=== PATIENT | male | born 1935 | race Caucasian/White ===

== ENCOUNTER → 2017-10-27 12:40 | Outpatient (CLI) | payer MEDICARE, SELFPAY ==
--- NOTE | 2017-10-27 10:00 | BLB_PTH ---
PATIENT: МАРИНА MCGOWAN LOC: [facility] U#:[id number] AGE/SX: 89/M ROOM: RE10/27/[address]: Dr. Robinson Camejo MD : 1935 BED: DIS: SPEC #: [id number] RECD: 10/27/17 12:20 STATUS: BEVERLY AUGUSTO #: [id number] PATRICK: 10/27/17 10:[address]: Robinson Camejo DEPT: SURGICAL PATHOLOGY RECD BY: Freddy Guzman ENTERED: 10/27/17 14:18 SP TYPE: TURB OTHR DR: Dr. 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 1/3 Lamina propria invasion ? not identified Lymph-vascular invasion ? not identified. Detrusor muscle invasion ? detrusor muscle is not present in the submitted specimen. JOHNSON:ileana 11/02/17 MICROSCOPIC DESCRIPTION Slides are reviewed. GROSS DESCRIPTION Received in fixative is one container labeled with the patient's name and designated bladder biopsy. The specimen consists of one irregular fragment of light thomas soft tissue that measures 0.2 x 0.1 x <0.1 cm. The specimen is totally submitted in one cassette. / AM:ileana 10/27/17 TC:0 CPT: 21855
== END ==
PROVIDERS: Family Provider Family Medicine; PCP Family Medicine; Visit Provider Urology
DX: C67.9 Malignant neoplasm of bladder, unspecified (principal)
CPT/HCPCS: 88305; 88307

== ENCOUNTER → 2017-12-08 10:44 | Outpatient (CLI) | payer MEDICARE, SELFPAY ==
--- NOTE | 2017-12-08 10:50 | CDU_ITS ---
Reason For Study: Carotid Stenosis Rt. Velocities/BP Lt. Velocities/BP Prox CCA 85/23 cm/sec. Prox CCA 100/22 cm/sec. Mid CCA 81/18 cm/sec. Mid CCA 77/23 cm/sec. Dist CCA 78/22 cm/sec. Dist CCA 46/12 cm/sec. Prox ICA 68/20 cm/sec. Prox ICA 66/24 cm/sec. Mid ICA 67/24 cm/sec. Mid ICA 70/23 cm/sec. Dist ICA 71/15 cm/sec. Dist ICA 81/28 cm/sec. Rt. ICA/CCA = 0.87. Lt. ICA/CCA = 1.05. Prox ECA 89/10 cm/sec. Prox ECA 93/10 cm/sec. Rt. Vert. 57/16 cm/sec. Lt. Vert. 43/16 cm/sec. Right Extracranial There is heterogeneous, irregular atherosclerotic plaque noted in the right common carotid artery. There is heterogeneous, smooth atherosclerotic plaque noted in the right internal carotid artery. There is heterogeneous, irregular atherosclerotic plaque noted in the right external carotid artery. Antegrade flow is noted in the right vertebral artery. Left Extracranial There is heterogeneous, smooth atherosclerotic plaque noted in the left common carotid artery. There is heterogeneous, irregular atherosclerotic plaque noted in the left internal carotid artery. There is no significant atherosclerotic plaque noted in the left external carotid artery. Antegrade flow is noted in the left vertebral artery. Procedure Carotid Duplex [id number]. Exam performed in department. Interpretation Summary Smooth plague within the proximal right internal carotid artery with <50% stenosis. Mild irregular plague within the proximal left internal carotid with <50% stenosis. Normal flow bilateral external carotids Patent and antegrade vertebrals bilaterally Ordering Physician: Tam Friedman Referring Physician: Reymundo Shay Performed By: Marquita Loya, RDCS, RVT
== END ==
PROVIDERS: Family Provider Family Medicine; PCP Family Medicine; Visit Provider Surgery
DX: I65.23 Occlusion and stenosis of bilateral carotid arteries (principal)
CPT/HCPCS: 93880

== ENCOUNTER → 2019-12-09 10:39 | Outpatient (CLI) | payer MEDICARE, SELFPAY ==
--- NOTE | 2019-12-09 10:40 | CDU_ITS ---
Reason For Study: Carotid stenosis Rt. Velocities/BP Lt. Velocities/BP Prox CCA 93/22.6 cm/sec. Prox CCA 110.1/24.3 cm/sec. Mid CCA 82.6/18.6 cm/sec. Mid CCA 86.4/20.6 cm/sec. Dist CCA 78.6/16 cm/sec. Dist CCA 70.4/15.1 cm/sec. Prox ICA 74.7/22.6 cm/sec. Prox ICA 79/23.7 cm/sec. Mid ICA 61.7/17.3 cm/sec. Mid ICA 55.6/20 cm/sec. Dist ICA 87.8/23.9 cm/sec. Dist ICA 71.6/21.2 cm/sec. Rt. ICA/CCA = 1.1. Lt. ICA/CCA = 0.9. Prox ECA 82.5/8.2 cm/sec. Prox ECA 85.1/2.8 cm/sec. Rt. Vert. 35.5/12.4 cm/sec. Lt. Vert. 47/10.2 cm/sec. Right Extracranial There is homogeneous, smooth atherosclerotic plaque noted in the right common carotid artery. There is heterogeneous, irregular atherosclerotic plaque noted in the right internal carotid artery. There is intimal thickening but no significant atherosclerotic plaque noted in the right external carotid artery. Antegrade flow is noted in the right vertebral artery. Left Extracranial There is homogeneous, smooth atherosclerotic plaque noted in the left common carotid artery. There is heterogeneous, irregular atherosclerotic plaque noted in the left internal carotid artery. There is intimal thickening but no significant atherosclerotic plaque noted in the left external carotid artery. Antegrade flow is noted in the left vertebral artery. Procedure Carotid Duplex [id number]. Exam performed in department. Interpretation Summary Irregular heterogenous plaque at the proximal right internal carotid artery with less than 50% stenosis. <50% stenosis right external carotid Postoperative changes left carotid bulb and proximal internal carotid artery with very minimal plaque and less than 50% stenosis <50% stenosis left external carotid Patent and antegrade vertebral arteries bilaterally No change from December 08, 2017 Ordering Physician: Tam Friedman Referring Physician: Reymundo Shay Performed By: Gema Xiao RVT
== END ==
PROVIDERS: PCP Family Medicine; Referring Provider Surgery; Visit Provider Surgery
DX: I65.23 Occlusion and stenosis of bilateral carotid arteries (principal)
CPT/HCPCS: 93880

== ENCOUNTER → 2021-03-04 11:30 | Outpatient (CLI) | payer MEDICARE, SELFPAY ==
[2021-03-04 11:57] LABS: Absolute Lymphocyte Count 0.76 X10^3/uL (0.83-4.51); Absolute Neutrophil Count 5.2 X10^3/uL (2.0-7.7); Basophil# 0.02 X10^3/uL; Basophil% 0.3 % (0-1); Eosinophil# 0.07 X10^3/uL; Eosinophils% 1.1 % (0-5); Hematocrit 47.9 % (40-54); Hemoglobin 14.7 g/dL (13.0-16.5); Lymphocyte # 0.76 X10^3/ul (0.83-4.51); Lymphocyte % 11.6 % (19-41); Mean Corp Hgb Conc 30.7 g/dL (32-36); Mean Corpuscular Hgb 30.6 pg (27.0-32.0); Mean Corpuscular Volume 99.8 fL (80-94); Monocyte% 7.6 % (0-10); NRBC Flagged by Analyzer 0 % (0-5); Neutrophil % 79.1 % (47-70); Platelet Count 202 K/mm3 (150-450); RBC Distribution Width SD 47.8 fl (35.1-43.9); White Blood Count 6.6 K/mm3 (4.4-11.0)
[2021-03-04 12:36] LABS: Anion Gap 4 (5-15); BUN 18 mg/dL (7-18); BUN/Creat Ratio 17.3 RATIO (10-20); Calcium,Total 9.1 mg/dL (8.5-10.1); Chloride 106 mmol/L (98-107); Creatinine, Serum 1.04 mg/dL (0.70-1.30); EST Glomerular Filtration Rate 72 mL/min (>60); Est Glom Filt Rate - Afr Amer 87 mL/min (>60); Glucose 138 mg/dL (74-106); Potassium 4.1 mmol/L (3.5-5.1); Sodium Level 140 mmol/L (136-145)
[2021-03-09 11:46] LABS: Hemoglobin A1c 5.8 % (3.8-5.6)
== END ==
PROVIDERS: PCP Family Medicine; Visit Provider Physician Assistant
DX: Z01.818 Encounter for other preprocedural examination (principal)
CPT/HCPCS: 36415; 80048; 83036; 85025

== ENCOUNTER → 2021-11-26 | Outpatient (CLI) | payer MEDICARE, SELFPAY ==
--- NOTE | 2021-11-26 09:40 | CDU_ITS ---
Reason For Study: Carotid stenosis Rt. Velocities/BP Lt. Velocities/BP Prox CCA 95.6/20 cm/sec. Prox CCA 124.7/22.5 cm/sec. Mid CCA 100.8/20 cm/sec. Mid CCA 99.2/20.6 cm/sec. Dist CCA 89.1/21.3 cm/sec. Dist CCA 69.1/15.1 cm/sec. Prox ICA 79.9/21.3 cm/sec. Prox ICA 59.3/17.6 cm/sec. Mid ICA 85.2/23.9 cm/sec. Mid ICA 66.7/16.3 cm/sec. Dist ICA 85.2/27.8 cm/sec. Dist ICA 82.7/22.5 cm/sec. Rt. ICA/CCA = 0.9. Lt. ICA/CCA = 0.8. Prox ECA 121.7/10.8 cm/sec. Prox ECA 126.6/11.5 cm/sec. Rt. Vert. 57.8/13.4 cm/sec. Lt. Vert. 61.8/11.4 cm/sec. Right Extracranial There is homogeneous, smooth atherosclerotic plaque noted in the right common carotid artery. There is heterogeneous, irregular atherosclerotic plaque noted in the right internal carotid artery. There is intimal thickening but no significant atherosclerotic plaque noted in the right external carotid artery. Antegrade flow is noted in the right vertebral artery. Left Extracranial There is homogeneous, smooth atherosclerotic plaque noted in the left common carotid artery. There is heterogeneous, irregular atherosclerotic plaque noted in the left internal carotid artery. There is heterogeneous, irregular atherosclerotic plaque noted in the left external carotid artery. Antegrade flow is noted in the left vertebral artery. Procedure Carotid Duplex [id number]. This is a Carotid Duplex examination using B-mode, color flow and specral Doppler. Exam performed in department. VL/Carotid Duplex Ultrasound Interpretation Summary Heterogenous plaque at the proximal right internal carotid artery with less kevin n 50% stenosis Less than 50% stenosis right external carotid artery Postoperative changes of the left carotid bulb and proximal internal carotid ar leonardo with minimal plaque and less than 50% stenosis. Less than 50% stenosis left external carotid artery Patent and antegrade vertebral arteries bilaterally Ordering Physician: Tam Friedman Referring Physician: Reymundo Shay Performed By: Gema Xiao RVT
== END | disposition home or self-care (01) ==
LOC: CVS 09:38
PROVIDERS: PCP Family Medicine; Referring Provider Surgery; Visit Provider Surgery
DX: I65.23 Occlusion and stenosis of bilateral carotid arteries (principal)
CPT/HCPCS: 93880

== ENCOUNTER → 2023-02-24 | Outpatient (CLI) | payer MEDICARE, SELFPAY ==
--- NOTE | 2023-02-24 12:40 | BI_ITS ---
MAMMOGRAPHY - BILATERAL DIAGNOSTIC REASON FOR EXAM: Male, 87 years old. Gynecomastia. PERTINENT HISTORY: Sister with breast cancer. Mother with breast cancer. Aunt with breast cancer. Past history of bladder carcinoma. TECHNIQUE: Digital bilateral breast linda (3D mammographic acquisition) in the CC and MLO projections. 2-D mediolateral oblique (MLO) and craniocaudad (CC) views of both breasts were obtained. CAD: Full Field Digital Mammography with Computer Added Detection was performed. COMPARISON: None. Baseline examination. FINDINGS: Breast Composition: Retroglandular tissue suggestive of gynecomastia. No focal mass lesion is seen. Correlation with ultrasound is recommended. There are no dominant masses or suspicious calcifications. No other significant abnormalities are identified. BI/DIAG MAMM W/CAD, BILAT IMPRESSION: Findings suggestive of bilateral gynecomastia. Correlation with ultrasound is recommended. ASSESSMENT CATEGORY: BIRADS Category 0: Incomplete. Need additional imaging evaluation. A letter regarding these results will be sent to the patient by the facility within 30 days. Approximately 10% of breast cancers are not detected by mammography. A normal mammogram should not delay biopsy of a clinically suspicious abnormality. Electronically Signed: Ariel Bains MD at 13:37 EDT ,
--- NOTE | 2023-02-24 12:41 | US_ITS ---
STUDY: ULTRASOUND BREAST - LEFT REASON FOR EXAM: Male, 87 years old. Pain in the left breast. TECHNIQUE: Axial and longitudinal images of the LEFT breast were performed with a high resolution ultrasound transducer. # OF IMAGES: 22 COMPARISON: Comparison is made with prior mammogram done earlier today. FINDINGS: LEFT Breast: Retroareolar glandular tissue. Findings suggest gynecomastia. US/Breast Limited Unilateral IMPRESSION: Findings suggestive of gynecomastia. ASSESSMENT CATEGORY: BIRADS Category 2: Benign. A letter regarding these results will be sent to the patient by the facility within 30 days. Electronically Signed: Ariel Bains MD at 14:55 EDT ,
== END | disposition home or self-care (01) ==
PROVIDERS: PCP Family Medicine; Referring Provider Family Medicine; Visit Provider Family Medicine
DX: N62 Hypertrophy of breast (principal)
CPT/HCPCS: 76642; 77062; 77066; G0279

== ENCOUNTER → 2023-10-30 | Outpatient (CLI) | payer MEDICARE, SELFPAY ==
--- NOTE | 2023-10-30 10:33 | CDU_ITS ---
Reason For Study: Carotid stenosis Rt. Velocities/BP Lt. Velocities/BP Prox CCA 92.9/14.5 cm/sec. Prox CCA 107.2/20 cm/sec. Mid CCA 91.9/16.3 cm/sec. Mid CCA 96.1/12.6 cm/sec. Dist CCA 91.9/19.2 cm/sec. Dist CCA 88.8/15.1 cm/sec. Prox ICA 102.3/23.7 cm/sec. Prox ICA 57/14.2 cm/sec. Mid ICA 77.7/22.5 cm/sec. Mid ICA 69.2/16 cm/sec. Dist ICA 64.2/16.3 cm/sec. Dist ICA 65.7/22.9 cm/sec. Rt. ICA/CCA = 1.11. Lt. ICA/CCA = 0.72. Prox ECA 121.1/7.9 cm/sec. Prox ECA 136.8/9.4 cm/sec. Rt. Vert. 39.7/12.6 cm/sec. Lt. Vert. 58.7/13.3 cm/sec. Right Extracranial There is homogeneous, smooth atherosclerotic plaque noted in the right common carotid artery. There is heterogeneous, irregular atherosclerotic plaque noted in the right internal carotid artery. There is intimal thickening but no significant atherosclerotic plaque noted in the right external carotid artery. Antegrade flow is noted in the right vertebral artery. Left Extracranial There is homogeneous, smooth atherosclerotic plaque noted in the left common carotid artery. There is heterogeneous, irregular atherosclerotic plaque noted in the left internal carotid artery. There is heterogeneous, irregular atherosclerotic plaque noted in the left external carotid artery. Antegrade flow is noted in the left vertebral artery. Procedure This is a Carotid Duplex examination using B-mode, color flow and specral Doppler. Carotid Duplex [id number]. Exam performed in department. VL/Carotid Duplex Ultrasound Interpretation Summary Heterogenous plaque at the proximal right internal carotid artery with less kevin n 50% stenosis Less than 50% stenosis right external carotid artery Postoperative changes of the left carotid bulb and proximal internal carotid ar leonardo with minimal plaque and less than 50% stenosis. Less than 50% stenosis left external carotid artery Patent and antegrade vertebral arteries bilaterally No change from the previous examination of the November 26, 2021 Ordering Physician: Tam Friedman Referring Physician: Marcio Alford Performed By: Gema Xiao RVT
== END | disposition home or self-care (01) ==
PROVIDERS: PCP Hospitalist; Referring Provider Surgery; Visit Provider Surgery
DX: I65.22 Occlusion and stenosis of left carotid artery (principal)
CPT/HCPCS: 93880

== ENCOUNTER → 2024-03-11 | Outpatient (CLI) | payer MEDICARE, SELFPAY ==
[2024-03-11 12:49] LABS: Hematocrit 44.1 % (40-54); Mean Corp Hgb Conc 31.7 g/dL (32-36); Mean Corpuscular Hgb 30.9 pg (27.0-32.0); Mean Corpuscular Volume 97.4 fL (80-94); Platelet Count 213 K/mm3 (150-450); RBC Distribution Width CV 12.8 % (11.6-14.6); RBC Distribution Width SD 45.9 fl (35.1-43.9); Red Blood Count 4.53 M/mm3 (4.6-6.2); White Blood Count 6.6 K/mm3 (4.4-11.0)
[2024-03-11 13:15] LABS: Anion Gap 7 (5-15); BUN 18 mg/dL (7-18); BUN/Creat Ratio 18.2 RATIO (10-20); Calcium,Total 9.6 mg/dL (8.5-10.1); Chloride 105 mmol/L (98-107); Creatinine, Serum 0.99 mg/dL (0.70-1.30); EST Glomerular Filtration Rate 76 mL/min (>60); Est Glom Filt Rate - Afr Amer 92 mL/min (>60); Glucose 90 mg/dL (74-106); Potassium 4.2 mmol/L (3.5-5.1); Sodium Level 139 mmol/L (136-145)
== END | disposition home or self-care (01) ==
PROVIDERS: PCP Hospitalist; Referring Provider Urology; Visit Provider Urology
DX: Z01.812 Encounter for preprocedural laboratory examination (principal)
CPT/HCPCS: 36415; 80048; 85027

== ENCOUNTER → 2024-03-12 | Outpatient (CLI) | payer MEDICARE, SELFPAY | END | disposition home or self-care (01) | LOC: PSN 12:22 | PROVIDERS: PCP Nurse Practitioner Family; Referring Provider Urology; Visit Provider Urology | DX: Z01.810 Encounter for preprocedural cardiovascular examination (principal) | CPT/HCPCS: 93005 ==

== ENCOUNTER → 2024-03-22 | Outpatient (CLI) | payer MEDICARE, SELFPAY ==
--- NOTE | 2024-03-22 | BLB_PTH ---
PATHOLOGY RESULTS PATIENT: МАРИНА MCGOWAN [facility] U#:[id number] AGE/SX: 88/M ROOM: RE03/22/[address]: Dr. Robinson Camejo MD : 1935 BED: DIS: 03/22/2024 SPEC #: [id number] RECD: 03/22/24 14:48 STATUS: BEVERLY CASAS #: [id number] PATRICK: 03/22/24 00:[address]: Robinson Camejo DEPT: SURGICAL PATHOLOGY RECD BY: Kiley Joe ENTERED: 03/25/24 09:11 SP TYPE: TURB OTHR DR: Gema Chu, VIOLIN MAKER HAND-C Tissues: Urinary bladder, NOS Procedures: Surgery Specimen Level V HEADER OPERATION: Transurethral resection, bladder tumor PRE-OP DIAGNOSIS: Malignant neoplasm of posterior wall of bladder TISSUE SUBMITTED: Bladder tumor MICROSCOPIC DIAGNOSIS Bladder tumor, transurethral resection: Atypical papillary urothelial proliferation. Negative for malignancy. See comment. JOHNSONNadine 03/26/2024 COMMENT Detrusor muscle is also present in the specimen. Clinical correlation and appropriate follow up are necessary. MICROSCOPIC DESCRIPTION Slides are reviewed. GROSS DESCRIPTION Received in fixative is one container labeled with the patient's name and designated Bladder tumor. The specimen consists of one irregular fragment of light thomas soft tissue that measures 0.4 x 0.2 x 0.1 cm. The specimen is totally submitted in one cassette. 03/25/2024 TC:5 CPT:[id number]
--- OUTSIDE RECORDS SUMMARY | 2024-03-22 16:27 | XMS RPT_ITS | CCD ---
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 aches, malaise, and headache have been present for 5 days and refractory to OTC meds. No fever, chills, loss of taste/smell, nausea, vomiting, abdominal pain, CP, or SOB. No exacerbating factors. ill with same symptoms. HISTORY OF PRESENTING ILLNESS JAIME is a 87 year old Male and was seen by me at 16-Nov-2022 10:59. Triage Information: Most recent Vital Sign Value Date PAST MEDICAL HISTORY ALLERGIES/INTOLERANCES : No Known Allergies HEALTH HISTORY: No documented data. OUTPATIENT MEDICATIONS: Home Medications Review Status for Reconciliation: Complete Med Status: Patient Currently Takes Medications Drug Name: omeprazole Instructions: null Drug Name: simvastatin Instructions: null Drug Name: Valtrex Instructions: null Drug Name: finasteride Instructions: null Drug Name: Xarelto Instructions: null Drug Name: doxycycline hyclate 100 mg oral tablet Instructions: 1 tab(s) orally 2 times a day Drug Name: predniSONE 20 mg oral tablet Instructions: 1 tab(s) orally once a day SIGNIFICANT EVENTS: Past Medical History Description:a fib REVIEW OF SYSTEMS All other systems reviewed and are negative REVIEW OF SYSTEMS: Comments See HPI PHYSICAL EXAM CONSTITUTIONAL: Dull nasally voice but appears well nourished, awake, alert, oriented to person, place, time/situation and in no apparent distress. HENMT: Airway patent, ears with clear tympanic membranes bilaterally. Nasal mucosa clear. Mouth with normal mucosa. Throat has no vesicles, no oropharyngeal exudates and uvula is midline. Face with no lymph node enlargement. EYES: Clear bilaterally, pupils equal, round and reactive to light. CARDIOVASCULAR: Normal rate, regular rhythm. Heart sounds S1, S2. No murmurs, rubs or gallops. PMI non-displaced. RESPIRATORY: Rhonchi to bilateral lower lobes. No rales or wheezing. NEUROLOGICAL: Alert and oriented, no focal deficits, no motor or sensory deficits. SKIN: Skin normal color for race, warm, dry and intact. No evidence of trauma. PSYCHIATRIC: Alert and oriented to person, place, time/situation. normal mood and affect. No apparent risk to self or others. CRITICAL CARE VITAL SIGNS: T PRBP SpO2O2(LPM) %FiO2 Method 16-Nov-2022 10:51:[id number] MDM MDM/ED COURSE: Discussed Findings with: patient Data Reviewed: vital signs Treatment Plan: Rx doxycycline and low dose prednisone. Discussed use of prednisone with afib and symptoms to monitor. Encouraged patient to push p.o. fluids and rest. Patient's clinical presentation is otherwise unremarkable at this time. Patient is discharged with instructions to follow-up with primary care or seek emergency medical attention for worsening symptoms or any new concerns. DISPOSITION Diagnosis/Annotation: ED Dx Name:Acute bronchitis Code:J20.9 Disposition: discharged Type: home CONSULT CRITICAL CARE TIME Is this a critically ill patient: no Electronic Signatures: Cyrus Vega (MANAGER SOCIAL WORK-MANAGER ART) (Signed 16-Nov-2022 12:00) Authored: ED Notes, HPI, PMH, ROS, PE, Results/Vital Signs, MDM/ED Course, Clinical Impression, Attestation, Chart Review, Scores Last Updated: 16-Nov-2022 12:00 by Cyrus Vega (MANAGER SOCIAL WORK-MANAGER ART) [facility] PT Progress Noteon 2 PT Progress Note Therapy Diagnosis Assessed Impaired transfers (781.99) (Z74.09) 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 Pt will demo and report compliance with HEP in order to augment POC goals and progression toward independence with symptom management for better outcomes once D/C from POC. , goal met Strength: Pt will demo improved MMT by >/= 1 point on 0-5 point scale in BLE's for improved strength and stability, and improved ease with transfers, lifting/carrying, and proper mechanics with ADL?s AND IADL?s. , by week 4, goal met KRISTIN, Pt will report subjective improvement with score on KRISTIN improved by >/= 5 points for return to PLOF, improved QOL, and improved ease with ADL?s AND IADL?s. , by week 4, goal met Planned interventions include: aquatic therapy, cryotherapy, dry needling, education/instruction, electrical stimulation, gait training, home program, hot pack, kinesiotaping, manual therapy, neuromuscular re-education, self care/home management, therapeutic activities, therapeutic exercises, ultrasound and IASTM/CUPPING. Frequency and duration: No further visits planned., for 15 visits. Potential to achieve rehab goals is good Pt being placed on hold for 30 days at this time and is going to attempt independence with HEP. If pt does not elect to resume PT within 30 days, this will serve as his D/C. Refer back in future if necessary. Monitor home program. Patient instructed to call if problems. Assessment Pt reassessed this date by supervising PT with improvements noted in Lumbar AROM as well as MMT in BLE s compared to eval.. Pt deferred doing ther-ex this date and requested to defer any manual therapy this date as well so pt only kept for 30 minutes for re-assessment and to discuss/review HEP. Pt reported good understanding of all edu and updates to HEP made this date and is appropriate to attempt independence with HEP and symptom management at this time with blue band given for progression of ther-ex at home. Patient was able to complete today's treatment with ease. Adult Risk Screening There are no spiritual/cultural practices/values/needs that are important to know Initial Fall Risk Screening: JAIME has not fallen in the last 6 months. JAIME has a fear of falling. He needs assistance with . Does not need assistance walking in his home. He does not need assistance in an unfamiliar setting. The patient is not using an assistive device. Fall Risk Screening: Patient is identified as a fall risk. Care Plan: Moderate Risk: Low risk interventions plus: do not leave patient on exam table unattended, supervised activity, educate patient/family on falls prevention, review safety initiatives with patient/family, family at bedside as allowed, yellow falls risk band, focus rounding attention, locate patient in area of high visibility, wheelchair, bed, or personal alarm, bedside commode, elevated toilet seat and pharmacy consult for medication concerns. Please identify location of pain: L thigh. Pain Quality: aching and tightness. The pain makes it hard for the patient to do these things: walking, house work, relationships with family or friends and self-care (bathing, dressing, eating). Domestic Violence Screen: Does not feel threatened or abused physically, emotionally or sexually. Do you feel UNSAFE? The patient feels safe in the home. Depression/Suicide Screening: During the past 2 weeks, the patient has not felt down, depressed or hopeless. During the past 2 weeks, the patient has not felt little interest or pleasure in doing things. Insurance Insurance reviewed Visit number: 19 Approved number of visits: 15 Authorization date range: 03/22/22 Authorization not required after evaluation POC: 19 [facility] Supervising PT: Yeni Lebron PT, DPT, Cert DN PT Dx: M54.50; R26.9; Z74.09; M48.062 Onset Date: 2021 Subjective Patient reports:. Pt notes he will still get some pain into his Left thigh but that has been better than it was now that he is cutting his walks back to about 3xweek instead of 6 times. Pt notes he will be having carpal tunnel surgery on 04/28/2022. Patient identified by name and date of . Home program performing as directed: Yes. Precautions: Fall Risk: moderate Lumbar Laminectomy in August 2021. Objective Ortho Lumbar AROM: Flex: 60%-->75% Ext: 10% -->15% R Rotation: 50%--75% L Rotation: 50% -->75% R Sidebend: 75% ->80% L Sidebend: 75% -->80% MMT: (RLE/LLE) Hip Flex: 4/4-->4+/4-->4+/4+ Hip Ext: N/T Hip ABD: 4-/4 --> 4/4 SEATED--5/5 Hip ER: 4+/4+ -->5/5 Hip IR: 4+/4+ -->5/5 Knee Flex: 4+/4+-->5/5 Knee Ext: 4+/4+-->5/5 Ankle DF: 3+/4-->4-/4->4-/4 Flexibility: HS: RLE: -40 from 0 in -->-30 FROM 0 IN LLE: -30 from 0 in -->-28 FROM 0 IN 9 (more content not included)... Normal [facility] Therapy Re-eval Noteon 04-04 Therapy Re-eval Note Therapy Diagnosis Assessed 1. 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 Chronic bilateral low back pain (724.2,338.29) (M54.50,G89.29) 4. Gait difficulty (781.2) (R26.9) Plan Goals: Goals set and discussed today. Pt will demo and report compliance with HEP in order to augment POC goals and progression toward independence with symptom management for better outcomes once D/C from POC. , goal met Strength: Pt will demo improved MMT by >/= 1 point on 0-5 point scale in BLE's for improved strength and stability, and improved ease with transfers, lifting/carrying, and proper mechanics with ADL?s AND IADL?s. , by week 4, goal met KRISTIN, Pt will report subjective improvement with score on KRISTIN improved by >/= 5 points for return to PLOF, improved QOL, and improved ease with ADL?s AND IADL?s. , by week 4, goal met Planned interventions include: aquatic therapy, cryotherapy, dry needling, education/instruction, electrical stimulation, gait training, home program, hot pack, kinesiotaping, manual therapy, neuromuscular re-education, self care/home management, therapeutic activities, therapeutic exercises, ultrasound and IASTM/CUPPING. Frequency and duration: No further visits planned., for 15 visits. Potential to achieve rehab goals is good Pt being placed on hold for 30 days at this time and is going to attempt independence with HEP. If pt does not elect to resume PT within 30 days, this will serve as his D/C. Refer back in future if necessary. Monitor home program. Patient instructed to call if problems. Assessment Pt reassessed this date by supervising PT with improvements noted in Lumbar AROM as well as MMT in BLE s compared to eval.. Pt deferred doing ther-ex this date and requested to defer any manual therapy this date as well so pt only kept for 30 minutes for re-assessment and to discuss/review HEP. Pt reported good understanding of all edu and updates to HEP made this date and is appropriate to attempt independence with HEP and symptom management at this time with blue band given for progression of ther-ex at home. Patient was able to complete today's treatment with ease. Adult Risk Screening There are no spiritual/cultural practices/values/needs that are important to know Initial Fall Risk Screening: JAIME has not fallen in the last 6 months. JAIME has a fear of falling. He needs assistance with . Does not need assistance walking in his home. He does not need assistance in an unfamiliar setting. The patient is not using an assistive device. Fall Risk Screening: Patient is identified as a fall risk. Care Plan: Moderate Risk: Low risk interventions plus: do not leave patient on exam table unattended, supervised activity, educate patient/family on falls prevention, review safety initiatives with patient/family, family at bedside as allowed, yellow falls risk band, focus rounding attention, locate patient in area of high visibility, wheelchair, bed, or personal alarm, bedside commode, elevated toilet seat and pharmacy consult for medication concerns. Please identify location of pain: L thigh. Pain Quality: aching and tightness. The pain makes it hard for the patient to do these things: walking, house work, relationships with family or friends and self-care (bathing, dressing, eating). Domestic Violence Screen: Does not feel threatened or abused physically, emotionally or sexually. Do you feel UNSAFE? The patient feels safe in the home. Depression/Suicide Screening: During the past 2 weeks, the patient has not felt down, depressed or hopeless. During the past 2 weeks, the patient has not felt little interest or pleasure in doing things. Insurance Insurance reviewed Visit number: 19 Approved number of visits: 15 Authorization date range: 03/22/22 Authorization not required after evaluation POC: 19 [facility] Supervising PT: Yeni Lebron PT, DPT, Cert DN PT Dx: M54.50; R26.9; Z74.09; M48.062 Onset Date: 2021 Subjective Patient reports:. Pt notes he will still get some pain into his Left thigh but that has been better than it was now that he is cutting his walks back to about 3xweek instead of 6 times. Pt notes he will be having carpal tunnel surgery on 04/28/2022. Patient identified by name and date of . Home program performing as directed: Yes. Precautions: Fall Risk: moderate Lumbar Laminectomy in August 2021. Objective Ortho Lumbar AROM: Flex: 60%-->75% Ext: 10% -->15% R Rotation: 50%--75% L Rotation: 50% -->75% R Sidebend: 75% ->80% L Sidebend: 75% -->80% MMT: (RLE/LLE) Hip Flex: 4/4-->4+/4-->4+/4+ Hip Ext: N/T Hip ABD: 4-/4 --> 4/4 SEATED--5/5 Hip ER: 4+/4+ -->5/5 Hip IR: 4+/4+ -->5/5 Knee Flex: 4+/4+-->5/5 Knee Ext: 4+/4+-->5/5 Ankle DF: 3+/4-->4-/4->4-/4 Flexibility: HS: RLE: -40 from 0 in 90/90-->-30 FROM 0 IN 90/90 LLE: -30 from 0 in 90/90-->-28 (more content not included)... [facility] Progress Noteon 2 PT Progress Note Therapy Diagnosis Assessed Chronic bilateral low back pain (724.2,338.29) (M54.50,G89.29) Plan Goals: Goals set and discussed today. Pt will demo and report compliance with HEP in order to augment POC goals and progression toward independence with symptom management for better outcomes once D/C from POC. , goal met Strength: Pt will demo improved MMT by >/= 1 point on 0-5 point scale in BLE's for improved strength and stability, and improved ease with transfers, lifting/carrying, and proper mechanics with ADL?s AND IADL?s. , by week 4, goal partially met KRISTIN, Pt will report subjective improvement with score on KRISTIN improved by >/= 5 points for return to PLOF, improved QOL, and improved ease with ADL?s AND IADL?s. , by week 4, goal partially met Planned interventions include: aquatic therapy, cryotherapy, dry needling, education/instruction, electrical stimulation, gait training, home program, hot pack, kinesiotaping, manual therapy, neuromuscular re-education, self care/home management, therapeutic activities, therapeutic exercises, ultrasound and IASTM/CUPPING. Frequency and duration: 1 time(s) a week, for 15 visits . decreased to 1 x week after this week to wean to HEP and preserve visits. Potential to achieve rehab goals is good Progress DLS for continued improved functional mobility and core strength. Progress with POC, as tolerated. Assessment Improved overall balance this date during standing PRE's and ambulation. Needed only 1 seated rest break this date as compared to several last visit. Improved core control with resisted trunk PRE's. Adult Risk Screening There are no spiritual/cultural practices/values/needs that are important to know Initial Fall Risk Screening: JAIME has not fallen in the last 6 months. JAIME has a fear of falling. He needs assistance with . Does not need assistance walking in his home. He does not need assistance in an unfamiliar setting. The patient is not using an assistive device. Fall Risk Screening: Patient is identified as a fall risk. Care Plan: Moderate Risk: Low risk interventions plus: do not leave patient on exam table unattended, supervised activity, educate patient/family on falls prevention, review safety initiatives with patient/family, family at bedside as allowed, yellow falls risk band, focus rounding attention, locate patient in area of high visibility, wheelchair, bed, or personal alarm, bedside commode, elevated toilet seat and pharmacy consult for medication concerns. Please identify location of pain: L thigh. Pain Quality: aching and tightness. The pain makes it hard for the patient to do these things: walking, house work, relationships with family or friends and self-care (bathing, dressing, eating). Domestic Violence Screen: Does not feel threatened or abused physically, emotionally or sexually. Do you feel UNSAFE? The patient feels safe in the home. Depression/Suicide Screening: During the past 2 weeks, the patient has not felt down, depressed or hopeless. During the past 2 weeks, the patient has not felt little interest or pleasure in doing things. Insurance Insurance reviewed Visit number: 19 Approved number of visits: 15 Authorization date range: 03/22/22 Authorization not required after evaluation POC: 04/12 [facility] Supervising PT: Yeni Lebron PT, DPT, Trae DN PT Dx: M54.50; R26.9; Z74.09; M48.062 Onset Date: 2021 Subjective Patient reports:. Patient reports that he is feeling good today overall. States that he walked today without too much trouble. Patient identified by name and date of . Home program performing as directed: Yes. Precautions: Fall Risk: moderate Lumbar Laminectomy in August 2021. Treatment Time in clinic started at 9:14 Time in clinic ended at 10:00 Total time in clinic is 46 minutes. Total timed code time is 45 minutes. Therapeutic exercise (28707): timed minutes 25, units 2 . Nustep 5' Seated SLR 2 x 10 B (dynadisc) (X) Recumbent bike 5' (X) slant board 1' x 2 Standing hip ABD + TrA 2 x 10 airex Standing hip Ext + TrA 2 x 10 airex Standing hip flexion + TrA 2 x 10 airex Standing marches 2 x 10 airex Standing mini squats 2 x 10 airex Standing heel raises 2 x 10 airex Step ups 6 2 x 10 B fwd/laterally Hip Hikes 2 x 10 Paloff press 2x10 ea direction pink tube Resisted Rows 2 x 10 Cowan tube Resisted extension 2 x 10 Cowan tube D/C to HEP: Seated toe raises 2 x 10 Seated march with green band 2 x 10 Seated hip ADD w/playball 2 x 10 Seated glute squeezes 2 x 10 5 hold Seated TrA 5 x 10 (with exercises) SKTC 2 x 10 LTR 2 x 10 Bridge x 10. Manual Therapy (88213):. STW to L lumbar paraspinals and Glute and QL 5' (X). Neuromuscular Re-education (27978): timed minutes 20, units 1 . 4 square ambulation 2 x 5 Side stepping at railing 2 x 10 Ball toss at the trampoling 2# 2 x 1? Tandem gait x 2 laps Hurdles x 4 laps reciprocal B (more content not included)... Normal [facility] PT Progress Noteon 2 PT Progress Note Therapy Diagnosis Assessed Chronic bilateral low back pain (724.2,338.29) (M54.50,G89.29) Plan Goals: Goals set and discussed today. Pt will demo and report compliance with HEP in order to augment POC goals and progression toward independence with symptom management for better outcomes once D/C from POC. , goal met Strength: Pt will demo improved MMT by >/= 1 point on 0-5 point scale in BLE's for improved strength and stability, and improved ease with transfers, lifting/carrying, and proper mechanics with ADL?s AND IADL?s. , by week 4, goal partially met KRISTIN, Pt will report subjective improvement with score on KRISTIN improved by >/= 5 points for return to PLOF, improved QOL, and improved ease with ADL?s AND IADL?s. , by week 4, goal partially met Planned interventions include: aquatic therapy, cryotherapy, dry needling, education/instruction, electrical stimulation, gait training, home program, hot pack, kinesiotaping, manual therapy, neuromuscular re-education, self care/home management, therapeutic activities, therapeutic exercises, ultrasound and IASTM/CUPPING. Frequency and duration: 1 time(s) a week, for 15 visits . decreased to 1 x week after this week to wean to HEP and preserve visits. Potential to achieve rehab goals is good Will continue to focus on balance and LE/ core strength for improved mobility and add dynamic balance and gait activities for increased ease and tolerance with outside ambulation. Progress with POC, as tolerated. Assessment Added cone taps this date for continued balance and control. Increased LOB this date with need for PT to assist to regain. Issues with balance with 4 square and tandem gait. Adult Risk Screening There are no spiritual/cultural practices/values/needs that are important to know Initial Fall Risk Screening: JAIME has not fallen in the last 6 months. JAIME has a fear of falling. He needs assistance with . Does not need assistance walking in his home. He does not need assistance in an unfamiliar setting. The patient is not using an assistive device. Fall Risk Screening: Patient is identified as a fall risk. Care Plan: Moderate Risk: Low risk interventions plus: do not leave patient on exam table unattended, supervised activity, educate patient/family on falls prevention, review safety initiatives with patient/family, family at bedside as allowed, yellow falls risk band, focus rounding attention, locate patient in area of high visibility, wheelchair, bed, or personal alarm, bedside commode, elevated toilet seat and pharmacy consult for medication concerns. Please identify location of pain: L thigh. Pain Quality: aching and tightness. The pain makes it hard for the patient to do these things: walking, house work, relationships with family or friends and self-care (bathing, dressing, eating). Domestic Violence Screen: Does not feel threatened or abused physically, emotionally or sexually. Do you feel UNSAFE? The patient feels safe in the home. Depression/Suicide Screening: During the past 2 weeks, the patient has not felt down, depressed or hopeless. During the past 2 weeks, the patient has not felt little interest or pleasure in doing things. Insurance Insurance reviewed Visit number: 17 Approved number of visits: 15 Authorization date range: 03/22/22 Authorization not required after evaluation POC: 04/12 [facility] Supervising PT: Yeni Lebron PT, DPT, Trae DN PT Dx: M54.50; R26.9; Z74.09; M48.062 Onset Date: 2021 Subjective Patient reports:. He reported he has an appointment with Dr. Dasilva 03/29/22. States that he was able to go for his walk today and felt ok afterward. States that walking every other day is helping to not be so sore. .id. Home program performing as directed: Yes. Precautions: Fall Risk: moderate Lumbar Laminectomy in August 2021. Treatment Time in clinic started at 9:15 Time in clinic ended at 10:00 Total time in clinic is 46 minutes. Total timed code time is 43 minutes. Therapeutic exercise (87077): timed minutes 27, units 2 . Nustep 5' Seated SLR 2 x 10 B (dynadisc) (X) Recumbent bike 5' (X) slant board 1' x 2 Standing hip ABD + TrA 2 x 10 airex Standing hip Ext + TrA 2 x 10 airex Standing hip flexion + TrA 2 x 10 airex Standing marches 2 x 10 airex Standing mini squats 2 x 10 airex Standing heel raises 2 x 10 airex Step ups 6 2 x 10 B fwd/laterally Hip Hikes 2 x 10 Paloff press 2x10 ea direction pink tube Resisted Rows 2 x 10 Cowan tube Resisted extension 2 x 10 Cowan tube D/C to HEP: Seated toe raises 2 x 10 Seated march with green band 2 x 10 Seated hip ADD w/playball 2 x 10 Seated glute squeezes 2 x 10 5 hold Seated TrA 5 x 10 (with exercises) SKTC 2 x 10 LTR 2 x 10 Bridge x 10. Manual Therapy (03821):. STW to L lumbar paraspinals and Glute and QL 5' (X). Neuromuscular Re-education (84318): timed minutes 26, units 1 . 4 square ambulation 2 x 5 Si (more content not included)... 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 Pt will demo and report compliance with HEP in order to augment POC goals and progression toward independence with symptom management for better outcomes once D/C from POC. , goal met Strength: Pt will demo improved MMT by >/= 1 point on 0-5 point scale in BLE's for improved strength and stability, and improved ease with transfers, lifting/carrying, and proper mechanics with ADL?s AND IADL?s. , by week 4, goal partially met KRISTIN, Pt will report subjective improvement with score on KRISTIN improved by >/= 5 points for return to PLOF, improved QOL, and improved ease with ADL?s AND IADL?s. , by week 4, goal partially met Planned interventions include: aquatic therapy, cryotherapy, dry needling, education/instruction, electrical stimulation, gait training, home program, hot pack, kinesiotaping, manual therapy, neuromuscular re-education, self care/home management, therapeutic activities, therapeutic exercises, ultrasound and IASTM/CUPPING. Frequency and duration: 1 time(s) a week, for 15 visits . decreased to 1 x week after this week to wean to HEP and preserve visits. Potential to achieve rehab goals is good Will continue to focus on balance and LE/ core strength for improved mobility and add dynamic balance and gait activities for increased ease and tolerance with outside ambulation. Progress with POC, as tolerated. Assessment Patient identified by name and date of . Patient demonstrated compensations with hurdles and required cues to decrease with circumduction. He required short seated rest breaks due to fatigue. He required cues to increase with upright posture with activities. Adult Risk Screening There are no spiritual/cultural practices/values/needs that are important to know Initial Fall Risk Screening: JAIME has not fallen in the last 6 months. JAIME has a fear of falling. He needs assistance with . Does not need assistance walking in his home. He does not need assistance in an unfamiliar setting. The patient is not using an assistive device. Fall Risk Screening: Patient is identified as a fall risk. Care Plan: Moderate Risk: Low risk interventions plus: do not leave patient on exam table unattended, supervised activity, educate patient/family on falls prevention, review safety initiatives with patient/family, family at bedside as allowed, yellow falls risk band, focus rounding attention, locate patient in area of high visibility, wheelchair, bed, or personal alarm, bedside commode, elevated toilet seat and pharmacy consult for medication concerns. Pain Scale: On a scale of 0 to 10, the patient rates the pain at 2. Please identify location of pain: L thigh. Pain Quality: aching and tightness. The pain makes it hard for the patient to do these things: walking, house work, relationships with family or friends and self-care (bathing, dressing, eating). Domestic Violence Screen: Does not feel threatened or abused physically, emotionally or sexually. Do you feel UNSAFE? The patient feels safe in the home. Depression/Suicide Screening: During the past 2 weeks, the patient has not felt down, depressed or hopeless. During the past 2 weeks, the patient has not felt little interest or pleasure in doing things. Insurance Insurance reviewed Visit number: 17 Approved number of visits: 15 Authorization date range: 03/22/22 Authorization not required after evaluation POC: 04/12 [facility] Supervising PT: Yeni Lebron PT, DPT, Trae DN PT Dx: M54.50; R26.9; Z74.09; M48.062 Onset Date: 2021 Subjective Patient reports:. He reported he continues to experience increased Sx in his L LE and has an appointment with Dr. Dasilva 03/29/22. He reported no change in Sx after treatment. Home program performing as directed: Yes. Precautions: Fall Risk: moderate Lumbar Laminectomy in August 2021. Treatment Time in clinic started at 11:25 Time in clinic ended at 12:16 Total time in clinic is 51 minutes. Total timed code time is 47 minutes. Therapeutic exercise (23313): timed minutes 27, units 2 . Nustep 5' Seated SLR 2 x 10 B (dynadisc) (X) Recumbent bike 5' (X) slant board 1' x 2 Standing hip ABD + TrA 2 x 10 airex Standing hip Ext + TrA 2 x 10 airex Standing hip flexion + TrA 2 x 10 airex Standing marches 2 x 10 airex Standing mini squats 2 x 10 airex Standing heel raises 2 x 10 airex Step ups 6 2 x 10 B fwd/laterally Hip Hikes 2 x 10 Paloff press 2x10 ea direction pink tube Resisted Rows 2 x 10 Cowan tube Resisted extension 2 x 10 Cowan tube D/C to HEP: Seated toe raises 2 x 10 Seated march with green band 2 x 10 Seated hip ADD w/playball 2 x 10 Seated glute squeezes 2 x 10 5 hol (more content not included)... 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 Pt will demo and report compliance with HEP in order to augment POC goals and progression toward independence with symptom management for better outcomes once D/C from POC. , goal met Strength: Pt will demo improved MMT by >/= 1 point on 0-5 point scale in BLE's for improved strength and stability, and improved ease with transfers, lifting/carrying, and proper mechanics with ADL?s AND IADL?s. , by week 4, goal partially met KRISTIN, Pt will report subjective improvement with score on KRISTIN improved by >/= 5 points for return to PLOF, improved QOL, and improved ease with ADL?s AND IADL?s. , by week 4, goal partially met Planned interventions include: aquatic therapy, cryotherapy, dry needling, education/instruction, electrical stimulation, gait training, home program, hot pack, kinesiotaping, manual therapy, neuromuscular re-education, self care/home management, therapeutic activities, therapeutic exercises, ultrasound and IASTM/CUPPING. Frequency and duration: 1 time(s) a week, for 15 visits . decreased to 1 x week after this week to wean to HEP and preserve visits. Potential to achieve rehab goals is good Will continue to focus on balance and LE/ core strength for improved mobility and add dynamic balance and gait activities. Progress with POC, as tolerated. Assessment Held STW this date per patient. Added 4 square stepping to continue to challenge balance. Patient had 1 LOB but was able to recover Independently when stepping CW with 4 square. Patient needed a few standing rest breaks throughout session. Adult Risk Screening There are no spiritual/cultural practices/values/needs that are important to know Initial Fall Risk Screening: JAIME has not fallen in the last 6 months. JAIME has a fear of falling. He needs assistance with . Does not need assistance walking in his home. He does not need assistance in an unfamiliar setting. The patient is not using an assistive device. Fall Risk Screening: Patient is identified as a fall risk. Care Plan: Moderate Risk: Low risk interventions plus: do not leave patient on exam table unattended, supervised activity, educate patient/family on falls prevention, review safety initiatives with patient/family, family at bedside as allowed, yellow falls risk band, focus rounding attention, locate patient in area of high visibility, wheelchair, bed, or personal alarm, bedside commode, elevated toilet seat and pharmacy consult for medication concerns. Please identify location of pain: lumbar spine. Pain Quality: aching and tightness. The pain makes it hard for the patient to do these things: walking, house work, relationships with family or friends and self-care (bathing, dressing, eating). Domestic Violence Screen: Does not feel threatened or abused physically, emotionally or sexually. Do you feel UNSAFE? The patient feels safe in the home. Depression/Suicide Screening: During the past 2 weeks, the patient has not felt down, depressed or hopeless. During the past 2 weeks, the patient has not felt little interest or pleasure in doing things. Insurance Insurance reviewed Visit number: 16 Approved number of visits: 15 Authorization date range: 03/22/22 Authorization not required after evaluation POC: 04/12 [facility] Supervising PT: Yeni Lebron PT, DPT, Cert DN PT Dx: M54.50; R26.9; Z74.09; M48.062 Onset Date: 2021 Subjective Patient reports:. Patient plans to cut back his morning walks to 3x per week instead of 7x. States that he feels better when he has a break in between. States that he doesn't want the STW today d/t he used muscle rub that works better. Denies pain currently, 0/10 Patient identified by name and date of . Home program performing as directed: Yes. Precautions: Fall Risk: moderate Lumbar Laminectomy in August 2021. Treatment Time in clinic started at 9:16 Time in clinic ended at 9:59 Total time in clinic is 43 minutes. Total timed code time is 42 minutes. Therapeutic exercise (57805): timed minutes 27, units 2 . Nustep 5' Seated SLR 2 x 10 B (dynadisc) (X) Recumbent bike 5' (X) slant board 1' x 2 Standing hip ABD + TrA 2 x 10 airex Standing hip Ext + TrA 2 x 10 airex Standing hip flexion + TrA 2 x 10 airex Standing marches 2 x 10 airex Standing mini squats 2 x 10 airex Standing heel raises 2 x 10 airex Step ups 6 2 x 10 B fwd/laterally Hip Hikes 2 x 10 Paloff press 2x10 ea direction pink tube Resisted Rows 2 x 10 Cowan tube Resisted extension 2 x 10 Cowan tube D/C to HEP: Seated toe raises 2 x 10 Seated march with green band 2 x 10 Seated hip ADD w/playball 2 x 10 Seated glute squeezes 2 x 10 5 (more content not included)... 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 Pt will demo and report compliance with HEP in order to augment POC goals and progression toward independence with symptom management for better outcomes once D/C from POC. , goal met Strength: Pt will demo improved MMT by >/= 1 point on 0-5 point scale in BLE's for improved strength and stability, and improved ease with transfers, lifting/carrying, and proper mechanics with ADL?s AND IADL?s. , by week 4, goal partially met KRISTIN, Pt will report subjective improvement with score on KRISTIN improved by >/= 5 points for return to PLOF, improved QOL, and improved ease with ADL?s AND IADL?s. , by week 4, goal partially met Planned interventions include: aquatic therapy, cryotherapy, dry needling, education/instruction, electrical stimulation, gait training, home program, hot pack, kinesiotaping, manual therapy, neuromuscular re-education, self care/home management, therapeutic activities, therapeutic exercises, ultrasound and IASTM/CUPPING. Frequency and duration: 1 time(s) a week, for 15 visits . decreased to 1 x week after this week to wean to HEP and preserve visits. Potential to achieve rehab goals is good Will continue to focus on balance and LE and core strength for improved mobility. Will continue with STW next date per patient tolerance at next session. Progress with POC, as tolerated. Assessment Added STW this date with roller tool for short duration d/t patient was apprehensive about hard pressure during STW. Relief was noted after completion. Patient is guarded with sit <> supine transfers with mild difficulty to overcome gravity when sitting up. Adult Risk Screening There are no spiritual/cultural practices/values/needs that are important to know Initial Fall Risk Screening: JAIME has not fallen in the last 6 months. JAIME has a fear of falling. He needs assistance with . Does not need assistance walking in his home. He does not need assistance in an unfamiliar setting. The patient is not using an assistive device. Fall Risk Screening: Patient is identified as a fall risk. Care Plan: Moderate Risk: Low risk interventions plus: do not leave patient on exam table unattended, supervised activity, educate patient/family on falls prevention, review safety initiatives with patient/family, family at bedside as allowed, yellow falls risk band, focus rounding attention, locate patient in area of high visibility, wheelchair, bed, or personal alarm, bedside commode, elevated toilet seat and pharmacy consult for medication concerns. Please identify location of pain: lumbar spine. Pain Quality: aching and tightness. The pain makes it hard for the patient to do these things: walking, house work, relationships with family or friends and self-care (bathing, dressing, eating). Domestic Violence Screen: Does not feel threatened or abused physically, emotionally or sexually. Do you feel UNSAFE? The patient feels safe in the home. Depression/Suicide Screening: During the past 2 weeks, the patient has not felt down, depressed or hopeless. During the past 2 weeks, the patient has not felt little interest or pleasure in doing things. Insurance Insurance reviewed Visit number: 15 Approved number of visits: 15 Authorization date range: 03/22/22 Authorization not required after evaluation POC: 04/12 [facility] Supervising PT: Yeni Lebron PT, DPT, Cert DN PT Dx: M54.50; R26.9; Z74.09; M48.062 Onset Date: 2021 Subjective Patient reports:. Patient reports that he is still having pain down the L side of the back and his L thigh. Has been using muscle rub to help with the soreness. Current pain level is 1/10. Was able to go for him morning walk today. Patient identified by name and date of . Home program performing as directed: Yes. Precautions: Fall Risk: moderate Lumbar Laminectomy in August 2021. Treatment Time in clinic started at 910:00 Time in clinic ended at 10:45 Total time in clinic is 45 minutes. Total timed code time is 45 minutes. Therapeutic exercise (25765): timed minutes 25, units 2 . Nustep 5' Seated SLR 2 x 10 B (dynadisc) (X) Recumbent bike 5' (X) slant board 1' x 2 Standing hip ABD + TrA 2 x 10 airex Standing hip Ext + TrA 2 x 10 airex Standing hip flexion + TrA 2 x 10 airex Standing marches 2 x 10 airex Standing mini squats 2 x 10 airex Standing heel raises 2 x 10 airex Step ups 6 2 x 10 B fwd/laterally Hip Hikes 2 x 10 Paloff press 2x10 ea direction pink tube Resisted Rows 2 x 10 Cowan tube Resisted extension 2 x 10 Cowan tube D/C to HEP: Seated toe raises 2 x 10 Seated march with green band 2 x 10 Seated hip ADD w/playball 2 x 10 Seated glute (more content not included)... 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 Pt will demo and report compliance with HEP in order to augment POC goals and progression toward independence with symptom management for better outcomes once D/C from POC. , goal met Strength: Pt will demo improved MMT by >/= 1 point on 0-5 point scale in BLE's for improved strength and stability, and improved ease with transfers, lifting/carrying, and proper mechanics with ADL?s AND IADL?s. , by week 4, goal partially met KRISTIN, Pt will report subjective improvement with score on KRISTIN improved by >/= 5 points for return to PLOF, improved QOL, and improved ease with ADL?s AND IADL?s. , by week 4, goal partially met Planned interventions include: aquatic therapy, cryotherapy, dry needling, education/instruction, electrical stimulation, gait training, home program, hot pack, kinesiotaping, manual therapy, neuromuscular re-education, self care/home management, therapeutic activities, therapeutic exercises, ultrasound and IASTM/CUPPING. Frequency and duration: 1 time(s) a week, for 15 visits . decreased to 1 x week after this week to wean to HEP and preserve visits. Potential to achieve rehab goals is good Progress core and LE strength as pain allows for improved strength and endurance with daily tasks. Progress with POC, as tolerated. Assessment Patient was not as fatigued this date upon arrival. Improved ability to complete ADL's. Cues d/t circumduction of the R LE during hurdles, improved technique after cues. Difficulty with running man when lunging on L on BOSU with need to hold onto railing most of the time. R LE was more stable with intermittent need for railing as compared to L LE on BOSU. Mild compensation by posteriorly leaning trunk during seated SLR when sitting on dynadisc. Patient was more reserved today and not as talkative like he did not feel well. Increased guarding today with all standing exercises. Increased guarding with gait. Patient needed standing rests between exercises today. Adult Risk Screening There are no spiritual/cultural practices/values/needs that are important to know Initial Fall Risk Screening: JAIME has not fallen in the last 6 months. JAIME has a fear of falling. He needs assistance with . Does not need assistance walking in his home. He does not need assistance in an unfamiliar setting. The patient is not using an assistive device. Fall Risk Screening: Patient is identified as a fall risk. Care Plan: Moderate Risk: Low risk interventions plus: do not leave patient on exam table unattended, supervised activity, educate patient/family on falls prevention, review safety initiatives with patient/family, family at bedside as allowed, yellow falls risk band, focus rounding attention, locate patient in area of high visibility, wheelchair, bed, or personal alarm, bedside commode, elevated toilet seat and pharmacy consult for medication concerns. Please identify location of pain: lumbar spine. Pain Quality: aching and tightness. The pain makes it hard for the patient to do these things: walking, house work, relationships with family or friends and self-care (bathing, dressing, eating). Domestic Violence Screen: Does not feel threatened or abused physically, emotionally or sexually. Do you feel UNSAFE? The patient feels safe in the home. Depression/Suicide Screening: During the past 2 weeks, the patient has not felt down, depressed or hopeless. During the past 2 weeks, the patient has not felt little interest or pleasure in doing things. Insurance Insurance reviewed Visit number: 14 Approved number of visits: 15 Authorization date range: 03/22/22 Authorization not required after evaluation POC: 04/12 [facility] Supervising PT: Yeni Lebron PT, DPT, Trae DN PT Dx: M54.50; R26.9; Z74.09; M48.062 Onset Date: 2021 Subjective Patient reports:. Patient reports that he is still having pain down the L side of the back and his L thigh. Has been using muscle rub to help with the soreness. Current pain level is 1/10. Was able to go for him morning walk today. Patient identified by name and date of . Home program performing as directed: Yes. Precautions: Fall Risk: moderate Lumbar Laminectomy in August 2021. Treatment Time in clinic started at 9:50 Time in clinic ended at 10:37 Total time in clinic is 47 minutes. Total timed code time is 45 minutes. Therapeutic exercise (24131): timed minutes 30, units 2 . Nustep 5' Seated SLR 2 x 10 B (dynadisc) Recumbent bike 5' (X) slant board 1' x 2 Standing hip ABD + TrA 2 x 10 airex Standing hip Ext + TrA 2 x 10 airex Standing hip flexion + TrA 2 x 10 airex Standing marches 2 x 10 airex Standi (more content not included)... 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 Pt will demo and report compliance with HEP in order to augment POC goals and progression toward independence with symptom management for better outcomes once D/C from POC. , goal met Strength: Pt will demo improved MMT by >/= 1 point on 0-5 point scale in BLE's for improved strength and stability, and improved ease with transfers, lifting/carrying, and proper mechanics with ADL?s AND IADL?s. , by week 4, goal partially met KRISTIN, Pt will report subjective improvement with score on KRISTIN improved by >/= 5 points for return to PLOF, improved QOL, and improved ease with ADL?s AND IADL?s. , by week 4, goal partially met Planned interventions include: aquatic therapy, cryotherapy, dry needling, education/instruction, electrical stimulation, gait training, home program, hot pack, kinesiotaping, manual therapy, neuromuscular re-education, self care/home management, therapeutic activities, therapeutic exercises, ultrasound and IASTM/CUPPING. Frequency and duration: 1 time(s) a week, for 15 visits . decreased to 1 x week after this week to wean to HEP and preserve visits. Potential to achieve rehab goals is good Progress strength for core and LE's as pain allows. Progress with POC, as tolerated. Goals adjusted, see goals for details. Assessment Patient was more reserved today and not as talkative like he did not feel well. Increased guarding today with all standing exercises. Increased guarding with gait. Patient needed standing rests between exercises today. Adult Risk Screening There are no spiritual/cultural practices/values/needs that are important to know Initial Fall Risk Screening: JAIME has not fallen in the last 6 months. JAIME has a fear of falling. He needs assistance with . Does not need assistance walking in his home. He does not need assistance in an unfamiliar setting. The patient is not using an assistive device. Fall Risk Screening: Patient is identified as a fall risk. Care Plan: Moderate Risk: Low risk interventions plus: do not leave patient on exam table unattended, supervised activity, educate patient/family on falls prevention, review safety initiatives with patient/family, family at bedside as allowed, yellow falls risk band, focus rounding attention, locate patient in area of high visibility, wheelchair, bed, or personal alarm, bedside commode, elevated toilet seat and pharmacy consult for medication concerns. Please identify location of pain: lumbar spine. Pain Quality: aching and tightness. The pain makes it hard for the patient to do these things: walking, house work, relationships with family or friends and self-care (bathing, dressing, eating). Domestic Violence Screen: Does not feel threatened or abused physically, emotionally or sexually. Do you feel UNSAFE? The patient feels safe in the home. Depression/Suicide Screening: During the past 2 weeks, the patient has not felt down, depressed or hopeless. During the past 2 weeks, the patient has not felt little interest or pleasure in doing things. Insurance Insurance reviewed Visit number: 13 Approved number of visits: 15 Authorization date range: 03/22/22 Authorization not required after evaluation POC: 04/12 [facility] Supervising PT: Yeni Lebron PT, DPT, Cert DN PT Dx: M54.50; R26.9; Z74.09; M48.062 Onset Date: 2021 Subjective Patient reports:. Patient states that he has been very sore in the L thigh today. Notes that he gets woken up by the pain in his leg. States that he does not feel well today and had upset stomach this date. Patient identified by name and date of . Home program performing as directed: Yes. Precautions: Fall Risk: moderate Lumbar Laminectomy in August 2021. Treatment Time in clinic started at 09:15 Time in clinic ended at 10:00 Total time in clinic is 45 minutes. Total timed code time is 44 minutes. Therapeutic exercise (63241): timed minutes 27, units 2 . Nustep 5' Seated SLR 2 x 10 B (dynadisc) (N) Recumbent bike 5' (X) slant board 1' x 2 Standing hip ABD + TrA 2 x 10 airex Standing hip Ext + TrA 2 x 10 airex Standing hip flexion + TrA 2 x 10 airex Standing marches 2 x 10 airex Standing mini squats 2 x 10 airex Step ups 6 2 x 10 B Hip Hikes 2 x 10 Standing heel raises 2 x 10 airex Paloff press 2x10 ea direction pink tube Resisted Rows 2 x 10 Cowan tube D/C to HEP: Seated toe raises 2 x 10 Seated march with green band 2 x 10 Seated hip ADD w/playball 2 x 10 Seated glute squeezes 2 x 10 5 hold Seated TrA 5 x 10 (with exercises) SKTC 2 x 10 LTR 2 x 10 Bridge x 10. Neuromuscular Re-education (64390): timed minutes 15, units 1 . Side s (more content not included)... 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 Pt will demo and report compliance with HEP in order to augment POC goals and progression toward independence with symptom management for better outcomes once D/C from POC. , goal met Strength: Pt will demo improved MMT by >/= 1 point on 0-5 point scale in BLE's for improved strength and stability, and improved ease with transfers, lifting/carrying, and proper mechanics with ADL?s AND IADL?s. , by week 4, goal partially met KRISTIN, Pt will report subjective improvement with score on KRISTIN improved by >/= 5 points for return to PLOF, improved QOL, and improved ease with ADL?s AND IADL?s. , by week 4, goal partially met Planned interventions include: aquatic therapy, cryotherapy, dry needling, education/instruction, electrical stimulation, gait training, home program, hot pack, kinesiotaping, manual therapy, neuromuscular re-education, self care/home management, therapeutic activities, therapeutic exercises, ultrasound and IASTM/CUPPING. Frequency and duration: 1 time(s) a week, for 15 visits . decreased to 1 x week after this week to wean to HEP and preserve visits. Potential to achieve rehab goals is good Progress balance and gait for improved control with gait and daily tasks. Progress with POC, as tolerated. Goals adjusted, see goals for details. Assessment Reviewed current HEP this date and put in order or importance. Added NMRE this date for improved daily function and balance. Added dynadisc to seated SLR to help improved core and quad strength. Difficulty with BOSU running man when L LE on the BOSU with need to hold onto railing continuously. Adult Risk Screening There are no spiritual/cultural practices/values/needs that are important to know Initial Fall Risk Screening: JAIME has not fallen in the last 6 months. JAIME has a fear of falling. He needs assistance with . Does not need assistance walking in his home. He does not need assistance in an unfamiliar setting. The patient is not using an assistive device. Fall Risk Screening: Patient is identified as a fall risk. Care Plan: Moderate Risk: Low risk interventions plus: do not leave patient on exam table unattended, supervised activity, educate patient/family on falls prevention, review safety initiatives with patient/family, family at bedside as allowed, yellow falls risk band, focus rounding attention, locate patient in area of high visibility, wheelchair, bed, or personal alarm, bedside commode, elevated toilet seat and pharmacy consult for medication concerns. Please identify location of pain: lumbar spine. Pain Quality: aching and tightness. The pain makes it hard for the patient to do these things: walking, house work, relationships with family or friends and self-care (bathing, dressing, eating). Domestic Violence Screen: Does not feel threatened or abused physically, emotionally or sexually. Do you feel UNSAFE? The patient feels safe in the home. Depression/Suicide Screening: During the past 2 weeks, the patient has not felt down, depressed or hopeless. During the past 2 weeks, the patient has not felt little interest or pleasure in doing things. Insurance Insurance reviewed Visit number: 11 Approved number of visits: 15 Authorization date range: 03/22/22 Authorization not required after evaluation POC: 04/12 [facility] Supervising PT: Yeni Lebron PT, DPT, Trae DN PT Dx: M54.50; R26.9; Z74.09; M48.062 Onset Date: 2021 Subjective Patient reports:. Patient states that his L LE continues to feel weak. Minimal pain today. Patient identified by name and date of . Home program performing as directed: Yes. Precautions: Fall Risk: moderate Lumbar Laminectomy in August 2021. Treatment Time in clinic started at 09:15 Time in clinic ended at 10:00 Total time in clinic is 45 minutes. Total timed code time is 44 minutes. Therapeutic exercise (54179): timed minutes 27, units 2 . Nustep 5' Seated SLR 2 x 10 B (dynadisc) (N) Recumbent bike 5' (X) slant board 1' x 2 Standing hip ABD + TrA 2 x 10 airex Standing hip Ext + TrA 2 x 10 airex Standing hip flexion + TrA 2 x 10 airex Standing marches 2 x 10 airex Standing mini squats 2 x 10 airex Step ups 6 2 x 10 B Hip Hikes 2 x 10 Standing heel raises 2 x 10 airex Paloff press 2x10 ea direction pink tube Resisted Rows 2 x 10 Cowan tube D/C to HEP: Seated toe raises 2 x 10 Seated march with green band 2 x 10 Seated hip ADD w/playball 2 x 10 Seated glute squeezes 2 x 10 5 hold Seated TrA 5 x 10 (with exercises) SKTC 2 x 10 LTR 2 x 10 Bridge x 10. Neuromuscular Re-education (97048): timed minutes 15, units 1 . Side stepping at railing 2 (more content not included)... 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 Pt will demo and report compliance with HEP in order to augment POC goals and progression toward independence with symptom management for better outcomes once D/C from POC. , goal met Strength: Pt will demo improved MMT by >/= 1 point on 0-5 point scale in BLE's for improved strength and stability, and improved ease with transfers, lifting/carrying, and proper mechanics with ADL?s AND IADL?s. , by week 4, goal partially met KRISTIN, Pt will report subjective improvement with score on KRISTIN improved by >/= 5 points for return to PLOF, improved QOL, and improved ease with ADL?s AND IADL?s. , by week 4, goal partially met Planned interventions include: aquatic therapy, cryotherapy, dry needling, education/instruction, electrical stimulation, gait training, home program, hot pack, kinesiotaping, manual therapy, neuromuscular re-education, self care/home management, therapeutic activities, therapeutic exercises, ultrasound and IASTM/CUPPING. Frequency and duration: 1 time(s) a week, for 15 visits . decreased to 1 x week after this week to wean to HEP and preserve visits. Potential to achieve rehab goals is good Progress with more dynamic gait/balance activities to decrease fall risk . Progress with POC, as tolerated. Goals adjusted, see goals for details. Assessment Pt reassessed this date by supervising PT with improvements noted in MMT in BLE's compared to eval as well as improving ease with transfers. Pt is still guarded and slow with all bed mobility and does still demonstrate instability with gait mechanics, specifically more dynamic gait. Pt has maintained good compliance with HEP and attendance and would benefit from continued skilled PT to address lingering deficits affecting function and contributing to fall risk. Adult Risk Screening There are no spiritual/cultural practices/values/needs that are important to know Initial Fall Risk Screening: JAIME has not fallen in the last 6 months. JAIME has a fear of falling. He needs assistance with . Does not need assistance walking in his home. He does not need assistance in an unfamiliar setting. The patient is not using an assistive device. Fall Risk Screening: Patient is identified as a fall risk. Care Plan: Moderate Risk: Low risk interventions plus: do not leave patient on exam table unattended, supervised activity, educate patient/family on falls prevention, review safety initiatives with patient/family, family at bedside as allowed, yellow falls risk band, focus rounding attention, locate patient in area of high visibility, wheelchair, bed, or personal alarm, bedside commode, elevated toilet seat and pharmacy consult for medication concerns. Pain Scale: On a scale of 0 to 10, the patient rates the pain at 0. Please identify location of pain: lumbar spine. Pain Quality: aching and tightness. The pain makes it hard for the patient to do these things: walking, house work, relationships with family or friends and self-care (bathing, dressing, eating). Domestic Violence Screen: Does not feel threatened or abused physically, emotionally or sexually. Do you feel UNSAFE? The patient feels safe in the home. Depression/Suicide Screening: During the past 2 weeks, the patient has not felt down, depressed or hopeless. During the past 2 weeks, the patient has not felt little interest or pleasure in doing things. Insurance Insurance reviewed Visit number: 11 Approved number of visits: 15 Authorization date range: 03/22/22 Authorization not required after evaluation POC: 04/12 [facility] Supervising PT: Yeni Lebron PT, DPT, Cert DN PT Dx: M54.50; R26.9; Z74.09; M48.062 Onset Date: 2021 Subjective Patient reports:. Feels therapy has been helpful so far but would like to continue. Is having some pain in Left thigh and that can impact his balance/walking. Has not fallen since starting therapy. Patient identified by name and date of . Home program performing as directed: Yes. Precautions: Fall Risk: moderate Lumbar Laminectomy in August 2021. Objective Ortho Lumbar AROM:->N/T 02/21/22 Flex: 60% Ext: 10% R Rotation: 50% L Rotation: 50% R Sidebend: 75% L Sidebend: 75% MMT: (RLE/LLE) Hip Flex: 4/4-->4+/4 Hip Ext: N/T Hip ABD: 4-/4 --> 4/4 SEATED Hip ER: 4+/4+ -->5/5 Hip IR: 4+/4+ -->5/5 Knee Flex: 4+/4+-->5/5 Knee Ext: 4+/4+-->5/5 Ankle DF: 3+/4-->4-/4- Flexibility: HS: RLE: -40 from 0 in -->-30 FROM 0 IN LLE: -30 from 0 in -->-28 FROM 0 IN . Outcome Measures Modified Oswestry Low Back Pain Disability Index score: 36% Treatment Time in clinic started at 09:10 Time in clinic ended at 09:55 (more content not included)... Normal [facility] Therapy Re-eval Noteon 02-21 Therapy Re-eval Note Therapy Diagnosis Assessed 1. Chronic bilateral low back pain (724.2,338.29) (M54.50,G89.29) 2. Impaired transfers (781.99) (Z74.09) 3. Gait difficulty (781.2) (R26.9) 4. 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 Pt will demo and report compliance with HEP in order to augment POC goals and progression toward independence with symptom management for better outcomes once D/C from POC. , goal met Strength: Pt will demo improved MMT by >/= 1 point on 0-5 point scale in BLE's for improved strength and stability, and improved ease with transfers, lifting/carrying, and proper mechanics with ADL?s AND IADL?s. , by week 4, goal partially met KRISTIN, Pt will report subjective improvement with score on KRISTIN improved by >/= 5 points for return to PLOF, improved QOL, and improved ease with ADL?s AND IADL?s. , by week 4, goal partially met Planned interventions include: aquatic therapy, cryotherapy, dry needling, education/instruction, electrical stimulation, gait training, home program, hot pack, kinesiotaping, manual therapy, neuromuscular re-education, self care/home management, therapeutic activities, therapeutic exercises, ultrasound and IASTM/CUPPING. Frequency and duration: 1 time(s) a week, for 15 visits . decreased to 1 x week after this week to wean to HEP and preserve visits. Potential to achieve rehab goals is good Progress with more dynamic gait/balance activities to decrease fall risk . Progress with POC, as tolerated. Goals adjusted, see goals for details. Assessment Pt reassessed this date by supervising PT with improvements noted in MMT in BLE's compared to eval as well as improving ease with transfers. Pt is still guarded and slow with all bed mobility and does still demonstrate instability with gait mechanics, specifically more dynamic gait. Pt has maintained good compliance with HEP and attendance and would benefit from continued skilled PT to address lingering deficits affecting function and contributing to fall risk. Adult Risk Screening There are no spiritual/cultural practices/values/needs that are important to know Initial Fall Risk Screening: JAIME has not fallen in the last 6 months. JAIME has a fear of falling. He needs assistance with . Does not need assistance walking in his home. He does not need assistance in an unfamiliar setting. The patient is not using an assistive device. Fall Risk Screening: Patient is identified as a fall risk. Care Plan: Moderate Risk: Low risk interventions plus: do not leave patient on exam table unattended, supervised activity, educate patient/family on falls prevention, review safety initiatives with patient/family, family at bedside as allowed, yellow falls risk band, focus rounding attention, locate patient in area of high visibility, wheelchair, bed, or personal alarm, bedside commode, elevated toilet seat and pharmacy consult for medication concerns. Pain Scale: On a scale of 0 to 10, the patient rates the pain at 0. Please identify location of pain: lumbar spine. Pain Quality: aching and tightness. The pain makes it hard for the patient to do these things: walking, house work, relationships with family or friends and self-care (bathing, dressing, eating). Domestic Violence Screen: Does not feel threatened or abused physically, emotionally or sexually. Do you feel UNSAFE? The patient feels safe in the home. Depression/Suicide Screening: During the past 2 weeks, the patient has not felt down, depressed or hopeless. During the past 2 weeks, the patient has not felt little interest or pleasure in doing things. Insurance Insurance reviewed Visit number: 11 Approved number of visits: 15 Authorization date range: 03/22/22 Authorization not required after evaluation POC: 04/12 [facility] Supervising PT: Yeni Lebron PT, DPT, Trae DN PT Dx: M54.50; R26.9; Z74.09; M48.062 Onset Date: 2021 Subjective Patient reports:. Feels therapy has been helpful so far but would like to continue. Is having some pain in Left thigh and that can impact his balance/walking. Has not fallen since starting therapy. Patient identified by name and date of . Home program performing as directed: Yes. Precautions: Fall Risk: moderate Lumbar Laminectomy in August 2021. Objective Ortho Lumbar AROM:->N/T 02/21/22 Flex: 60% Ext: 10% R Rotation: 50% L Rotation: 50% R Sidebend: 75% L Sidebend: 75% MMT: (RLE/LLE) Hip Flex: 4/4-->4+/4 Hip Ext: N/T Hip ABD: 4-/4 --> 4/4 SEATED Hip ER: 4+/4+ -->5/5 Hip IR: 4+/4+ -->5/5 Knee Flex: 4+/4+-->5/5 Knee Ext: 4+/4+-->5/5 Ankle DF: 3+/4-->4-/4- Flexibility: HS: RLE: -40 from 0 in -->-30 FROM 0 IN 90 LLE: -30 from 0 in -->-28 FROM 0 IN . Outcome Measures Modified Oswestry Low Back Pain Disability Index score: 36% Treatment Time in clinic started at 09:10 Time in clinic end (more content not included)... 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 Pt will demo and report compliance with HEP in order to augment POC goals and progression toward independence with symptom management for better outcomes once D/C from POC. Strength: Pt will demo improved MMT by >/= 1 point on 0-5 point scale in BLE's for improved strength and stability, and improved ease with transfers, lifting/carrying, and proper mechanics with ADL?s AND IADL?s. , by week 4 KRISTIN, Pt will report subjective improvement with score on KRISTIN improved by >/= 5 points for return to PLOF, improved QOL, and improved ease with ADL?s AND IADL?s. , by week 4 Planned interventions include: aquatic therapy, cryotherapy, dry needling, education/instruction, electrical stimulation, gait training, home program, hot pack, kinesiotaping, manual therapy, neuromuscular re-education, self care/home management, therapeutic activities, therapeutic exercises, ultrasound and IASTM/CUPPING. Frequency and duration: 2 time(s) a week, for 4 weeks, for 9 visits. Potential to achieve rehab goals is good Will add more dynamic balance and core strength next date. Progress with POC, as tolerated. Assessment Observed decreased hip drop during gait this date. Improved addy and not as antalgic gait observed. Checked leg length this date and alignment is symmetrical. Decreased fatigue with standing PRE's this date. Adult Risk Screening There are no spiritual/cultural practices/values/needs that are important to know Initial Fall Risk Screening: JAIME has not fallen in the last 6 months. JAIME has a fear of falling. He needs assistance with . Does not need assistance walking in his home. He does not need assistance in an unfamiliar setting. The patient is not using an assistive device. Fall Risk Screening: Patient is identified as a fall risk. Care Plan: Moderate Risk: Low risk interventions plus: do not leave patient on exam table unattended, supervised activity, educate patient/family on falls prevention, review safety initiatives with patient/family, family at bedside as allowed, yellow falls risk band, focus rounding attention, locate patient in area of high visibility, wheelchair, bed, or personal alarm, bedside commode, elevated toilet seat and pharmacy consult for medication concerns. Please identify location of pain: lumbar spine. Pain Quality: aching and tightness. The pain makes it hard for the patient to do these things: walking, house work, relationships with family or friends and self-care (bathing, dressing, eating). Domestic Violence Screen: Does not feel threatened or abused physically, emotionally or sexually. Do you feel UNSAFE? The patient feels safe in the home. Depression/Suicide Screening: During the past 2 weeks, the patient has not felt down, depressed or hopeless. During the past 2 weeks, the patient has not felt little interest or pleasure in doing things. Insurance Insurance reviewed Visit number: 10 Approved number of visits: 15 Authorization date range: 03/22/22 Authorization not required after evaluation POC: 10/10 [facility] Supervising PT: Yeni Lebron PT, DPT, Trae DN PT Dx: M54.50; R26.9; Z74.09; M48.062 Onset Date: 2021 Subjective Patient reports:. Patient feels that he is walking better but wonders if his leg length is different. States that he has some aching in the L thigh today. Was able to complete his walk this morning. Patient identified by name and date of . Home program performing as directed: Yes. Precautions: Fall Risk: moderate Lumbar Laminectomy in August 2021. Treatment Time in clinic started at 09:10 Time in clinic ended at 09:55 Total time in clinic is 45 minutes. Total timed code time is 44 minutes. Therapeutic exercise (76163): timed minutes 44, units 3 . Nustep 5' Recumbent bike 5' (X) slant board 1' x 2 Standing hip ABD + TrA 2 x 10 airex Standing hip Ext + TrA 2 x 10 airex Standing hip flexion + TrA 2 x 10 airex Standing marches 2 x 10 airex Standing mini squats 2 x 10 airex Step ups 6 2 x 10 B Hip Hikes 2 x 10 Standing heel raises 2 x 10 airex Side stepping at railing 2 x 10 Paloff press 2x10 ea direction pink tube Resisted Rows 2 x 10 Cowan tube Seated toe raises 2 x 10 Seated march with green band 2 x 10 Seated hip ADD w/playball 2 x 10 Seated SLR 2 x 10 B Seated glute squeezes 2 x 10 5 hold Seated TrA 5 x 10 (with exercises) SKTC 2 x 10 LTR 2 x 10 Bridge x 10. Provided today:. Handout given for progression of HEP this date. Patient verbalized and demo'd understanding of correct form and technique. Exercises given are listed below: 1. Tandem gait 2. standing hip hikes Paloff press (more content not included)... 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 Pt will demo and report compliance with HEP in order to augment POC goals and progression toward independence with symptom management for better outcomes once D/C from POC. Strength: Pt will demo improved MMT by >/= 1 point on 0-5 point scale in BLE's for improved strength and stability, and improved ease with transfers, lifting/carrying, and proper mechanics with ADL?s AND IADL?s. , by week 4 KRISTIN, Pt will report subjective improvement with score on KRISTIN improved by >/= 5 points for return to PLOF, improved QOL, and improved ease with ADL?s AND IADL?s. , by week 4 Planned interventions include: aquatic therapy, cryotherapy, dry needling, education/instruction, electrical stimulation, gait training, home program, hot pack, kinesiotaping, manual therapy, neuromuscular re-education, self care/home management, therapeutic activities, therapeutic exercises, ultrasound and IASTM/CUPPING. Frequency and duration: 2 time(s) a week, for 4 weeks, for 9 visits. Potential to achieve rehab goals is good Will continue to progress LE and core strength and ROM as able. Progress with POC, as tolerated. Assessment STS 30 sec timed test: 11 reps completed with fair eccentric control when sitting. Improved lumbar ROM with LTR B this date. Added tandem gait today with 1 UE lightly placed on the rail. Added hip hiking d/t observed hip drop during gait. Difficulty on the L > R with hip hikes. Adult Risk Screening There are no spiritual/cultural practices/values/needs that are important to know Initial Fall Risk Screening: JAIME has not fallen in the last 6 months. JAIME has a fear of falling. He needs assistance with . Does not need assistance walking in his home. He does not need assistance in an unfamiliar setting. The patient is not using an assistive device. Fall Risk Screening: Patient is identified as a fall risk. Care Plan: Moderate Risk: Low risk interventions plus: do not leave patient on exam table unattended, supervised activity, educate patient/family on falls prevention, review safety initiatives with patient/family, family at bedside as allowed, yellow falls risk band, focus rounding attention, locate patient in area of high visibility, wheelchair, bed, or personal alarm, bedside commode, elevated toilet seat and pharmacy consult for medication concerns. Please identify location of pain: lumbar spine. Pain Quality: aching and tightness. The pain makes it hard for the patient to do these things: walking, house work, relationships with family or friends and self-care (bathing, dressing, eating). Domestic Violence Screen: Does not feel threatened or abused physically, emotionally or sexually. Do you feel UNSAFE? The patient feels safe in the home. Depression/Suicide Screening: During the past 2 weeks, the patient has not felt down, depressed or hopeless. During the past 2 weeks, the patient has not felt little interest or pleasure in doing things. Insurance Insurance reviewed Visit number: 9 Approved number of visits: 15 Authorization date range: 03/22/22 Authorization not required after evaluation POC: 10/10 [facility] Supervising PT: Yeni Lebron PT, DPT, Cert DN PT Dx: M54.50; R26.9; Z74.09; M48.062 Onset Date: 2021 Subjective Patient reports:. Patient reports that he is not having pain currently. States that he was able to walk this morning. Has noticed improved speed and stability but still has trouble with endurance. Would like to be able to walk longer without needing to depend on outside source such as a cart or walker when trying to walk for long distances for lengthy time period. Patient identified by name and date of . Home program performing as directed: Yes. Precautions: Fall Risk: moderate Lumbar Laminectomy in August 2021. Treatment Time in clinic started at 09:15 Time in clinic ended at 10:00 Total time in clinic is 45 minutes. Total timed code time is 44 minutes. Therapeutic exercise (23073): timed minutes 44, units 3 . Nustep 5' Recumbent bike 5' (X) slant board 1' x 2 Standing hip ABD + TrA 2 x 10 airex Standing hip Ext + TrA 2 x 10 airex Standing hip flexion + TrA 2 x 10 airex Standing marches 2 x 10 airex Standing mini squats 2 x 10 airex Step ups 6 2 x 10 B Hip Hikes 2 x 10 (N) Standing heel raises 2 x 10 airex Side stepping at railing 2 x 10 Paloff press 2x10 ea direction pink tube Resisted Rows 2 x 10 Cowan tube Seated toe raises 2 x 10 Seated march with green band 2 x 10 Seated hip ADD w/playball 2 x 10 Seated SLR 2 x 10 B Seated glute squeezes 2 x 10 5 hold Seated TrA 5 x 10 (with exercises) SKTC 2 x 10 LTR 2 x 10 (more content not included)... 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 Pt will demo and report compliance with HEP in order to augment POC goals and progression toward independence with symptom management for better outcomes once D/C from POC. Strength: Pt will demo improved MMT by >/= 1 point on 0-5 point scale in BLE's for improved strength and stability, and improved ease with transfers, lifting/carrying, and proper mechanics with ADL?s AND IADL?s. , by week 4 KRISTIN, Pt will report subjective improvement with score on KRISTIN improved by >/= 5 points for return to PLOF, improved QOL, and improved ease with ADL?s AND IADL?s. , by week 4 Planned interventions include: aquatic therapy, cryotherapy, dry needling, education/instruction, electrical stimulation, gait training, home program, hot pack, kinesiotaping, manual therapy, neuromuscular re-education, self care/home management, therapeutic activities, therapeutic exercises, ultrasound and IASTM/CUPPING. Frequency and duration: 2 time(s) a week, for 4 weeks, for 9 visits. Potential to achieve rehab goals is good Continue to progress DLS and LE strength as current pain allows. Progress with POC, as tolerated. Assessment Improved balance with standing PRE's. Improved gait and addy this date as compared to last visit. Guards with seated <> supine transfers. Cues to complete glute squeeze during standing PRE's for improved control to avoid hip drop. Adult Risk Screening There are no spiritual/cultural practices/values/needs that are important to know Initial Fall Risk Screening: JAIME has not fallen in the last 6 months. JAIME has a fear of falling. He needs assistance with . Does not need assistance walking in his home. He does not need assistance in an unfamiliar setting. The patient is not using an assistive device. Fall Risk Screening: Patient is identified as a fall risk. Care Plan: Moderate Risk: Low risk interventions plus: do not leave patient on exam table unattended, supervised activity, educate patient/family on falls prevention, review safety initiatives with patient/family, family at bedside as allowed, yellow falls risk band, focus rounding attention, locate patient in area of high visibility, wheelchair, bed, or personal alarm, bedside commode, elevated toilet seat and pharmacy consult for medication concerns. Please identify location of pain: lumbar spine. Pain Quality: aching and tightness. The pain makes it hard for the patient to do these things: walking, house work, relationships with family or friends and self-care (bathing, dressing, eating). Domestic Violence Screen: Does not feel threatened or abused physically, emotionally or sexually. Do you feel UNSAFE? The patient feels safe in the home. Depression/Suicide Screening: During the past 2 weeks, the patient has not felt down, depressed or hopeless. During the past 2 weeks, the patient has not felt little interest or pleasure in doing things. Insurance Insurance reviewed Visit number: 8 Approved number of visits: 15 Authorization date range: 03/22/22 Authorization not required after evaluation POC: 10/10 [facility] Supervising PT: Yeni Lebron PT, DPT, Cert DN PT Dx: M54.50; R26.9; Z74.09; M48.062 Onset Date: 2021 Subjective Patient reports:. Patient reports that he was unable to get his walk in today d/t not sleeping well from smoke alarm going off in the middle of the night. States that his walk yesterday went well though. No pain currently, 0/10. States that ADL's like going up stairs are getting easier. States that he does not lose his balance as much now. Patient identified by name and date of . Home program performing as directed: Yes. Precautions: Fall Risk: moderate Lumbar Laminectomy in August 2021. Treatment Time in clinic started at 09:15 Time in clinic ended at 10:00 Total time in clinic is 45 minutes. Total timed code time is 44 minutes. Therapeutic exercise (91520): timed minutes 44, units 3 . Nustep 5' (not available) Recumbent bike 5' (N) slant board 1' x 2 Standing hip ABD + TrA 2 x 10 airex Standing hip Ext + TrA 2 x 10 airex Standing hip flexion + TrA 2 x 10 airex Standing marches 2 x 10 airex Standing mini squats 2 x 10 airex (N) Step ups 6 2 x 10 B Standing heel raises 2 x 10 airex Side stepping at railing 2 x 10 Paloff press 2x10 ea direction pink tube Resisted Rows 2 x 10 Cowan tube Seated toe raises 2 x 10 Seated march with green band 2 x 10 Seated hip ADD w/playball 2 x 10 Seated SLR 2 x 10 B Seated glute squeezes 2 x 10 5 hold Seated TrA 5 x 10 (with exercises) SKTC 2 x 10 LTR 2 x 10 Bridge x 10. Provided today:. Handout given for progression of HEP th (more content not included)... 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 Pt will demo and report compliance with HEP in order to augment POC goals and progression toward independence with symptom management for better outcomes once D/C from POC. Strength: Pt will demo improved MMT by >/= 1 point on 0-5 point scale in BLE's for improved strength and stability, and improved ease with transfers, lifting/carrying, and proper mechanics with ADL?s AND IADL?s. , by week 4 KRISTIN, Pt will report subjective improvement with score on KRISTIN improved by >/= 5 points for return to PLOF, improved QOL, and improved ease with ADL?s AND IADL?s. , by week 4 Planned interventions include: aquatic therapy, cryotherapy, dry needling, education/instruction, electrical stimulation, gait training, home program, hot pack, kinesiotaping, manual therapy, neuromuscular re-education, self care/home management, therapeutic activities, therapeutic exercises, ultrasound and IASTM/CUPPING. Frequency and duration: 2 time(s) a week, for 4 weeks, for 9 visits. Potential to achieve rehab goals is good Continue to progress DLS and LE strength as current pain allows. Progress with POC, as tolerated. Assessment Increased antalgic gait this date. Observed L hip drop with side steps this date with stepping to the L. Increased guarding with transfers. Good technique with paloff press this date. Adult Risk Screening There are no spiritual/cultural practices/values/needs that are important to know Initial Fall Risk Screening: JAIME has not fallen in the last 6 months. JAIME has a fear of falling. He needs assistance with . Does not need assistance walking in his home. He does not need assistance in an unfamiliar setting. The patient is not using an assistive device. Fall Risk Screening: Patient is identified as a fall risk. Care Plan: Moderate Risk: Low risk interventions plus: do not leave patient on exam table unattended, supervised activity, educate patient/family on falls prevention, review safety initiatives with patient/family, family at bedside as allowed, yellow falls risk band, focus rounding attention, locate patient in area of high visibility, wheelchair, bed, or personal alarm, bedside commode, elevated toilet seat and pharmacy consult for medication concerns. Please identify location of pain: lumbar spine. Pain Quality: aching and tightness. The pain makes it hard for the patient to do these things: walking, house work, relationships with family or friends and self-care (bathing, dressing, eating). Domestic Violence Screen: Does not feel threatened or abused physically, emotionally or sexually. Do you feel UNSAFE? The patient feels safe in the home. Depression/Suicide Screening: During the past 2 weeks, the patient has not felt down, depressed or hopeless. During the past 2 weeks, the patient has not felt little interest or pleasure in doing things. Insurance Insurance reviewed Visit number: 7 Approved number of visits: 15 Authorization date range: 03/22/22 Authorization not required after evaluation POC: 10/10 [facility] Supervising PT: Yeni Lebron PT, DPT, Trae DN PT Dx: M54.50; R26.9; Z74.09; M48.062 Onset Date: 2021 Subjective Patient reports:. Patient reports that his back was aching yesterday. States that he did not take anything for his aching d/t being on arthritis medication. States that he fees the damp weather affects him. Patient identified by name and date of . Home program performing as directed: Yes. Precautions: Fall Risk: moderate Lumbar Laminectomy in August 2021. Treatment Time in clinic started at 09:15 Time in clinic ended at 10:00 Total time in clinic is 45 minutes. Total timed code time is 44 minutes. Therapeutic exercise (45536): timed minutes 44, units 3 . Nustep 5' (not available) Recumbent bike 5' (N) slant board 1' x 2 Standing hip ABD + TrA 2 x 10 airex Standing hip Ext + TrA 2 x 10 airex Standing hip flexion + TrA 2 x 10 airex Standing marches 2 x 10 airex Step ups 6 2 x 10 B Standing heel raises 2 x 10 airex Side stepping at railing 2 x 10 Paloff press 2x10 ea direction pink tube Resisted Rows 2 x 10 Cowan tube Seated toe raises 2 x 10 Seated march with green band 2 x 10 Seated hip ADD w/playball 2 x 10 Seated SLR 2 x 10 B Seated glute squeezes 2 x 10 5 hold Seated TrA 5 x 10 (with exercises) SKTC 2 x 10 LTR 2 x 10 Bridge x 10. Provided today:. Handout given for progression of HEP this date. Patient verbalized and demo'd understanding of correct form and technique. Exercises given are listed below: 1. Paloff press 2. side stepping Standing hip ABD + TrA 2 x 10 Standing hip Ext + TrA 2 x 10 Standi (more content not included)... 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 Pt will demo and report compliance with HEP in order to augment POC goals and progression toward independence with symptom management for better outcomes once D/C from POC. Strength: Pt will demo improved MMT by >/= 1 point on 0-5 point scale in BLE's for improved strength and stability, and improved ease with transfers, lifting/carrying, and proper mechanics with ADL?s AND IADL?s. , by week 4 KRISTIN, Pt will report subjective improvement with score on KRISTIN improved by >/= 5 points for return to PLOF, improved QOL, and improved ease with ADL?s AND IADL?s. , by week 4 Planned interventions include: aquatic therapy, cryotherapy, dry needling, education/instruction, electrical stimulation, gait training, home program, hot pack, kinesiotaping, manual therapy, neuromuscular re-education, self care/home management, therapeutic activities, therapeutic exercises, ultrasound and IASTM/CUPPING. Frequency and duration: 2 time(s) a week, for 4 weeks, for 9 visits. Potential to achieve rehab goals is good Progress DLS as pain allows focusing on core strength and hip strength progression. Progress with POC, as tolerated. Assessment Added resistive row this date with TrA to continue facilitation of core strength progression. Fatigues quickly with seated SLR this date d/t quad weakness. Ambulates with mild trunk flexion. Cues for upright posture with standing hip ext d/t compensations observed. Adult Risk Screening There are no spiritual/cultural practices/values/needs that are important to know Initial Fall Risk Screening: JAIME has not fallen in the last 6 months. JAIME has a fear of falling. He needs assistance with . Does not need assistance walking in his home. He does not need assistance in an unfamiliar setting. The patient is not using an assistive device. Fall Risk Screening: Patient is identified as a fall risk. Care Plan: Moderate Risk: Low risk interventions plus: do not leave patient on exam table unattended, supervised activity, educate patient/family on falls prevention, review safety initiatives with patient/family, family at bedside as allowed, yellow falls risk band, focus rounding attention, locate patient in area of high visibility, wheelchair, bed, or personal alarm, bedside commode, elevated toilet seat and pharmacy consult for medication concerns. Please identify location of pain: lumbar spine. Pain Quality: aching and tightness. The pain makes it hard for the patient to do these things: walking, house work, relationships with family or friends and self-care (bathing, dressing, eating). Domestic Violence Screen: Does not feel threatened or abused physically, emotionally or sexually. Do you feel UNSAFE? The patient feels safe in the home. Depression/Suicide Screening: During the past 2 weeks, the patient has not felt down, depressed or hopeless. During the past 2 weeks, the patient has not felt little interest or pleasure in doing things. Insurance Insurance reviewed Visit number: 5 Approved number of visits: 15 Authorization date range: 03/22/22 Authorization not required after evaluation POC: 10/10 [facility] Supervising PT: Yeni Lebron PT, DPT, Trae DN PT Dx: M54.50; R26.9; Z74.09; M48.062 Onset Date: 2021 Subjective Patient reports:. Patient reports that he gets discomfort in the hip about Patient reported he was able to ambulate 20mins prior to treatment. Patient reported 0/10 pain after treatment. Home program performing as directed: Yes. Precautions: Fall Risk: moderate Lumbar Laminectomy in August 2021. Treatment Time in clinic started at 09:15 Time in clinic ended at 10:02 Total time in clinic is 47 minutes. Total timed code time is 44 minutes. Therapeutic exercise (47591): timed minutes 44, units 3 . Nustep 5' slant board 1'x2 Standing hip ABD + TrA 2 x 10 airex Standing hip Ext + TrA 2 x 10 airex Standing hip flexion + TrA 2 x 10 airex Standing marches 2 x 10 airex Step ups 6 2 x 10 B Standing heel raises 2 x 10 (P airex) Side stepping at railing 2 x 10 Paloff press 2x10 ea direction pink tube Resisted Rows 2 x 10 Cowan tube (N) Seated toe raises 2 x 10 Seated march with green band 2 x 10 Seated hip ADD w/playball 2 x 10 Seated SLR 2 x 10 B Seated glute squeezes 2 x 10 5 hold Seated TrA 5 x 10 (with exercises) SKTC 2 x 10 LTR 2 x 10 Bridge x 10. Provided today:. Handout given for progression of HEP this date. Patient verbalized and demo'd understanding of correct form and technique. Exercises given are listed below: 1. Paloff press 2. side stepping Standing hip ABD + TrA 2 x 10 Standing hip Ext + TrA 2 x 10 Standing hi (more content not included)... 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 Pt will demo and report compliance with HEP in order to augment POC goals and progression toward independence with symptom management for better outcomes once D/C from POC. Strength: Pt will demo improved MMT by >/= 1 point on 0-5 point scale in BLE's for improved strength and stability, and improved ease with transfers, lifting/carrying, and proper mechanics with ADL?s AND IADL?s. , by week 4 KRISTIN, Pt will report subjective improvement with score on KRISTIN improved by >/= 5 points for return to PLOF, improved QOL, and improved ease with ADL?s AND IADL?s. , by week 4 Planned interventions include: aquatic therapy, cryotherapy, dry needling, education/instruction, electrical stimulation, gait training, home program, hot pack, kinesiotaping, manual therapy, neuromuscular re-education, self care/home management, therapeutic activities, therapeutic exercises, ultrasound and IASTM/CUPPING. Frequency and duration: 2 time(s) a week, for 4 weeks, for 9 visits. Potential to achieve rehab goals is good Progress DLS and balance as able for improved daily function. Progress with POC, as tolerated. Assessment Patient identified by name and date of . Patient demonstrated difficulty at times with R hip flexion with stairs added seated march with resistance for increased hip strength. Patient required cues to maintain upright posture and decrease with compensations with standing exercises. Adult Risk Screening There are no spiritual/cultural practices/values/needs that are important to know Initial Fall Risk Screening: JAIME has not fallen in the last 6 months. JAIME has a fear of falling. He needs assistance with . Does not need assistance walking in his home. He does not need assistance in an unfamiliar setting. The patient is not using an assistive device. Fall Risk Screening: Patient is identified as a fall risk. Care Plan: Moderate Risk: Low risk interventions plus: do not leave patient on exam table unattended, supervised activity, educate patient/family on falls prevention, review safety initiatives with patient/family, family at bedside as allowed, yellow falls risk band, focus rounding attention, locate patient in area of high visibility, wheelchair, bed, or personal alarm, bedside commode, elevated toilet seat and pharmacy consult for medication concerns. Pain Scale: On a scale of 0 to 10, the patient rates the pain at 0. Please identify location of pain: lumbar spine. Pain Quality: aching and tightness. The pain makes it hard for the patient to do these things: walking, house work, relationships with family or friends and self-care (bathing, dressing, eating). Domestic Violence Screen: Does not feel threatened or abused physically, emotionally or sexually. Do you feel UNSAFE? The patient feels safe in the home. Depression/Suicide Screening: During the past 2 weeks, the patient has not felt down, depressed or hopeless. During the past 2 weeks, the patient has not felt little interest or pleasure in doing things. Insurance Insurance reviewed Visit number: 4 Approved number of visits: 15 Authorization date range: 03/22/22 Authorization not required after evaluation POC: 07/13 [facility] Supervising PT: Yeni Lebron PT, DPT, Trae DN PT Dx: M54.50; R26.9; Z74.09; M48.062 Onset Date: 04/ 28/ 2022 Subjective Patient reports:. Patient reported he was able to ambulate 20mins prior to treatment. Patient reported 0/10 pain after treatment. Home program performing as directed: Yes. Precautions: Fall Risk: moderate Lumbar Laminectomy in August 2021. Treatment Time in clinic started at 09:15 Time in clinic ended at 10:00 Total time in clinic is 45 minutes. Total timed code time is 43 minutes. Therapeutic exercise (69365): timed minutes 43, units 3 . Nustep 5' slant board 1'x2 Standing hip ABD + TrA 2 x 10 airex Standing hip Ext + TrA 2 x 10 airex Standing hip flexion + TrA 2 x 10 airex Standing marches 2 x 10 airex Step ups 6 2 x 10 B Standing heel raises 2 x 10 Side stepping at railing 2 x 10 Paloff press 2x10 ea direction pink tube Seated toe raises 2 x 10 (N) Seated march with green band 2 x 10 (N) Seated hip ADD w/playball 2 x 10 Seated SLR 2 x 10 B Seated glute squeezes 2 x 10 5 hold Seated TrA 5 x 10 (with exercises) SKTC 2 x 10 LTR 2 x 10 Bridge x10 (N). Provided today:. Handout given for progression of HEP this date. Patient verbalized and demo'd understanding of correct form and technique. Exercises given are listed below: 1. Paloff press 2. side stepping Standing hip ABD + TrA 2 x 10 Standing hip Ext + TrA 2 x 10 Standing hip flexion + TrA 2 x 10 Seated S (more content not included)... 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 Pt will demo and report compliance with HEP in order to augment POC goals and progression toward independence with symptom management for better outcomes once D/C from POC. Strength: Pt will demo improved MMT by >/= 1 point on 0-5 point scale in BLE's for improved strength and stability, and improved ease with transfers, lifting/carrying, and proper mechanics with ADL?s AND IADL?s. , by week 4 KRISTIN, Pt will report subjective improvement with score on KRISTIN improved by >/= 5 points for return to PLOF, improved QOL, and improved ease with ADL?s AND IADL?s. , by week 4 Planned interventions include: aquatic therapy, cryotherapy, dry needling, education/instruction, electrical stimulation, gait training, home program, hot pack, kinesiotaping, manual therapy, neuromuscular re-education, self care/home management, therapeutic activities, therapeutic exercises, ultrasound and IASTM/CUPPING. Frequency and duration: 2 time(s) a week, for 4 weeks, for 9 visits. Potential to achieve rehab goals is good Progress DLS and balance as able for improved daily function. Progress with POC, as tolerated. Assessment Added airex to standing PRE's to faciliate uneven surfaces patient encounters on daily walks, which causes fatigue. Working on progression of strengh, balance and stamina in order to complete daily tasks. Improved flexibility observed with LTR this date but still has limitations. Added side stepping at railing with glute squeeze for improved control. Added paloff press with light resistance to strengthen core for continued improvements. Response to treatment: decreased pain. Adult Risk Screening There are no spiritual/cultural practices/values/needs that are important to know Initial Fall Risk Screening: JAIME has not fallen in the last 6 months. JAIME has a fear of falling. He needs assistance with . Does not need assistance walking in his home. He does not need assistance in an unfamiliar setting. The patient is not using an assistive device. Fall Risk Screening: Patient is identified as a fall risk. Care Plan: Moderate Risk: Low risk interventions plus: do not leave patient on exam table unattended, supervised activity, educate patient/family on falls prevention, review safety initiatives with patient/family, family at bedside as allowed, yellow falls risk band, focus rounding attention, locate patient in area of high visibility, wheelchair, bed, or personal alarm, bedside commode, elevated toilet seat and pharmacy consult for medication concerns. Please identify location of pain: lumbar spine. Pain Quality: aching and tightness. The pain makes it hard for the patient to do these things: walking, house work, relationships with family or friends and self-care (bathing, dressing, eating). Domestic Violence Screen: Does not feel threatened or abused physically, emotionally or sexually. Do you feel UNSAFE? The patient feels safe in the home. Depression/Suicide Screening: During the past 2 weeks, the patient has not felt down, depressed or hopeless. During the past 2 weeks, the patient has not felt little interest or pleasure in doing things. Insurance Insurance reviewed Visit number: 3 Approved number of visits: 15 Authorization date range: 03/22/22 Authorization not required after evaluation POC: 06/12 [facility] Supervising PT: Yeni Lebron PT, DPT, Cert DN PT Dx: M54.50; R26.9; Z74.09; M48.062 Onset Date: 2021 Subjective Patient reports:. Patient reports that he was able to complete his full 8 laps when walking. States that his legs just got tired this morning with his walk. Denies any c/o pain today, 0/10. Patient identified by name and date of . Home program performing as directed: Yes. Precautions: Fall Risk: moderate Lumbar Laminectomy in August 2021. Treatment Time in clinic started at 9:15 Time in clinic ended at 10:00 Total time in clinic is 42 minutes. Total timed code time is 40 minutes. Therapeutic exercise (75292): timed minutes 44, units 3 . Nustep 5' slant board 1'x2 Standing hip ABD + TrA 2 x 10 (P airex) Standing hip Ext + TrA 2 x 10 (P airex) Standing hip flexion + TrA 2 x 10 (P airex) Standing marches 2 x 10 (P airex) Step ups 6 2 x 10 B (N) Side stepping at railing 2 x 10 (N) Paloff press Seated hip ADD w/playball 2 x 10 Seated SLR 2 x 10 B Seated glute squeezes 2 x 10 5 hold Seated TrA 5 x 10 SKTC 2 x 10 (N) LTR 2 x 10. Provided today:. Handout given for progression of HEP this date. Patient verbalized and demo'd understanding of correct form and technique. Exercises given are listed below: 1. Paloff press 2. side stepping St (more content not included)... Normal [facility] PT Progress Noteon 2 PT Progress Note Therapy Diagnosis Assessed Chronic bilateral low back pain (724.2,338.29) (M54.50,G89.29) Spinal stenosis of lumbar region with neurogenic claudication (724.03) (M48.062) Gait difficulty (781.2) (R26.9) Impaired transfers (781.99) (Z74.09) Plan Goals: Goals set and discussed today. Pt will demo and report compliance with HEP in order to augment POC goals and progression toward independence with symptom management for better outcomes once D/C from POC. Strength: Pt will demo improved MMT by >/= 1 point on 0-5 point scale in BLE's for improved strength and stability, and improved ease with transfers, lifting/carrying, and proper mechanics with ADL?s AND IADL?s. , by week 4 KRISTIN, Pt will report subjective improvement with score on KRISTIN improved by >/= 5 points for return to PLOF, improved QOL, and improved ease with ADL?s AND IADL?s. , by week 4 Planned interventions include: aquatic therapy, cryotherapy, dry needling, education/instruction, electrical stimulation, gait training, home program, hot pack, kinesiotaping, manual therapy, neuromuscular re-education, self care/home management, therapeutic activities, therapeutic exercises, ultrasound and IASTM/CUPPING. Frequency and duration: 2 time(s) a week, for 4 weeks, for 9 visits. Potential to achieve rehab goals is good Will progress stretches and standing DLS as able for overall improved mobility. Progress with POC, as tolerated. Assessment Improved control with standing hip ext with decreased need for cues. Mild guarding with gait. Tightness with LTR B but has more difficulty with stretching to the L. Tightness > on R with SKTC. Tactile cues for correct technique with pelvic tilt but patient was able to complete properly cues. Adult Risk Screening There are no spiritual/cultural practices/values/needs that are important to know Initial Fall Risk Screening: JAIME has not fallen in the last 6 months. JAIME has a fear of falling. He needs assistance with . Does not need assistance walking in his home. He does not need assistance in an unfamiliar setting. The patient is not using an assistive device. Fall Risk Screening: Patient is identified as a fall risk. Care Plan: Moderate Risk: Low risk interventions plus: do not leave patient on exam table unattended, supervised activity, educate patient/family on falls prevention, review safety initiatives with patient/family, family at bedside as allowed, yellow falls risk band, focus rounding attention, locate patient in area of high visibility, wheelchair, bed, or personal alarm, bedside commode, elevated toilet seat and pharmacy consult for medication concerns. Please identify location of pain: lumbar spine. Pain Quality: aching and tightness. The pain makes it hard for the patient to do these things: walking, house work, relationships with family or friends and self-care (bathing, dressing, eating). Domestic Violence Screen: Does not feel threatened or abused physically, emotionally or sexually. Do you feel UNSAFE? The patient feels safe in the home. Depression/Suicide Screening: During the past 2 weeks, the patient has not felt down, depressed or hopeless. During the past 2 weeks, the patient has not felt little interest or pleasure in doing things. Insurance Insurance reviewed Visit number: 3 Approved number of visits: 15 Authorization date range: 03/22/22 Authorization not required after evaluation POC: 06/12 [facility] Supervising PT: Yeni Lebron PT, DPT, Trae DN PT Dx: M54.50; R26.9; Z74.09; M48.062 Onset Date: 2021 Subjective Patient reports:. Patient reports that he was able to complete his full 10 laps when wakling. States that he just had stiffness this A.M. Has not had cramping in his leg recently. Patient identified by name and date of . Home program performing as directed: Yes. Precautions: Fall Risk: moderate Lumbar Laminectomy in August 2021. Treatment Time in clinic started at 9:14 Time in clinic ended at 09:56 Total time in clinic is 42 minutes. Total timed code time is 40 minutes. Therapeutic exercise (13516): timed minutes 44, units 3 . Reiewed HEP at start of session Nustep 5' slant board 1'x2 Standing hip ABD + TrA 2 x 10 Standing hip Ext + TrA 2 x 10 Standing hip flexion + TrA 2 x 10 Standing marches 2 x 10 Seated hip ADD w/playball 2 x 10 Seated SLR 2 x 10 B Seated glute squeezes 2 x 10 5 hold (P reps) Seated TrA 5 x 10 SKTC 2 x 10 (N) LTR 2 x 10 (N) . Provided today:. Standing hip ABD + TrA 2 x 10 Standing hip Ext + TrA 2 x 10 Standing hip flexion + TrA 2 x 10 Seated SLR 2 x 10. 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 Pt will demo and report compliance with HEP in order to augment POC goals and progression toward independence with symptom management for better outcomes once D/C from POC. Strength: Pt will demo improved MMT by >/= 1 point on 0-5 point scale in BLE's for improved strength and stability, and improved ease with transfers, lifting/carrying, and proper mechanics with ADL?s AND IADL?s. , by week 4 KRISTIN, Pt will report subjective improvement with score on KRISTIN improved by >/= 5 points for return to PLOF, improved QOL, and improved ease with ADL?s AND IADL?s. , by week 4 Planned interventions include: aquatic therapy, cryotherapy, dry needling, education/instruction, electrical stimulation, gait training, home program, hot pack, kinesiotaping, manual therapy, neuromuscular re-education, self care/home management, therapeutic activities, therapeutic exercises, ultrasound and IASTM/CUPPING. Frequency and duration: 2 time(s) a week, for 4 weeks, for 9 visits. Potential to achieve rehab goals is good Progress ther ex and DLS for continued improved functional mobility and LE strength with home and recreational ADL's. Progress with POC, as tolerated. Assessment Reviewed HEP that was given at [facility] with patient demo of proper technique. Discussed cutting back on how many laps he walks and to try cutting laps down until he gets stronger in his LE's with the therapy. Gastroc stretches added d/t cramping in the R HS/gastroc. Added standing PRE's this date for improved strength in the LE's. Weakness observed on R with hip extension. Adult Risk Screening There are no spiritual/cultural practices/values/needs that are important to know Initial Fall Risk Screening: JAIME has not fallen in the last 6 months. JAIME has a fear of falling. He needs assistance with . Does not need assistance walking in his home. He does not need assistance in an unfamiliar setting. The patient is not using an assistive device. Fall Risk Screening: Patient is identified as a fall risk. Care Plan: Moderate Risk: Low risk interventions plus: do not leave patient on exam table unattended, supervised activity, educate patient/family on falls prevention, review safety initiatives with patient/family, family at bedside as allowed, yellow falls risk band, focus rounding attention, locate patient in area of high visibility, wheelchair, bed, or personal alarm, bedside commode, elevated toilet seat and pharmacy consult for medication concerns. Please identify location of pain: lumbar spine. Pain Quality: aching and tightness. The pain makes it hard for the patient to do these things: walking, house work, relationships with family or friends and self-care (bathing, dressing, eating). Domestic Violence Screen: Does not feel threatened or abused physically, emotionally or sexually. Do you feel UNSAFE? The patient feels safe in the home. Depression/Suicide Screening: During the past 2 weeks, the patient has not felt down, depressed or hopeless. During the past 2 weeks, the patient has not felt little interest or pleasure in doing things. Insurance Insurance reviewed Visit number: 2 Approved number of visits: 15 Authorization date range: 03/22/22 Authorization not required after evaluation POC: 06/12 [facility] Supervising PT: Yeni Lebron PT, DPT, Cert DN PT Dx: M54.50; R26.9; Z74.09; M48.062 Onset Date: 2021 Subjective Patient reports:. Patient reports he is not having any pain currently. States that he has a lot of back pain when walking. He tries walks 7x per week approx 10 laps and takes approx 25 minutes. Notes that his LE's are very tired after. Home program performing as directed: Yes. Precautions: Fall Risk: moderate Lumbar Laminectomy in August 2021. Treatment Time in clinic started at 9:15 Time in clinic ended at 10:00 Total time in clinic is 45 minutes. Total timed code time is 44 minutes. Therapeutic exercise (08364): timed minutes 44, units 3 . Reiewed HEP at start of session Nustep 5' (N) slant board 1'x2 (N) Standing hip ABD + TrA 2 x 10 (N) Standing hip Ext + TrA 2 x 10 (N) Standing hip flexion + TrA 2 x 10 (N) Standing marches 2 x 10 (N) Seated hip ADD w/playball 2 x 10 (N) Seated SLR 2 x 10 B (N) Seated glute squeezes 10 x 5 (N) Seated TrA 5 x 10 (N) SKTC 2 x 10 (N) LTR 2 x 10 (N). Provided today:. Standing hip ABD + TrA 2 x 10 Standing hip Ext + TrA 2 x 10 Standing hip flexion + TrA 2 x 10 Seated SLR 2 x 10. 'Scores and Scales' Signatures Electronically signed by : Pati Henry HYDRAULICS ENGINEER; Jan 21 2022 10:02AM EST (Author) Electronically signed by : Yeni Lebron, PT; Jan 27 (more content not included)... 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 Pt will demo and report compliance with HEP in order to augment POC goals and progression toward independence with symptom management for better outcomes once D/C from POC. Strength: Pt will demo improved MMT by >/= 1 point on 0-5 point scale in BLE's for improved strength and stability, and improved ease with transfers, lifting/carrying, and proper mechanics with ADL?s AND IADL?s. , by week 4 KRISTIN, Pt will report subjective improvement with score on KRISTIN improved by >/= 5 points for return to PLOF, improved QOL, and improved ease with ADL?s AND IADL?s. , by week 4 Planned interventions include: aquatic therapy, cryotherapy, dry needling, education/instruction, electrical stimulation, gait training, home program, hot pack, kinesiotaping, manual therapy, neuromuscular re-education, self care/home management, therapeutic activities, therapeutic exercises, ultrasound and IASTM/CUPPING. Frequency and duration: 2 time(s) a week, for 4 weeks, for 9 visits. Potential to achieve rehab goals is good Plan of care was developed with input and agreement by the patient. Assessment Mr. MELCHOR presents with signs and symptoms consistent with recent lumbar spine surgery as well as PT diagnosis of Chronic low back pain, gait difficulty, and impaired transfers and demonstrates impairments/limitation s in lumbar AROM, MMT of BLE's and core musculature, as well as difficulty with proper mechanics for transfers and gait. Pt reported good understanding of all edu with HEP HO given . They would benefit from skilled Physical Therapy with combination of manual therapy techniques to decrease myofascial and joint restrictions, as well as progression of exercises for ROM, flexibility, strength, core stabilization, and glute retraining, and body mechanics education throughout POC to progress towards independence with ADL?s/IADL?s and return to PLOF. Clinical Presentation: Stable and/or uncomplicated characteristics. Level of Complexity: low Problem List: activity limitations, ADLs/IADLs/self care skills, balance, decreased functional level, fall risk, flexibility, gait/locomotion, motor function/control/tone, pain, participation restrictions, posture, range of motion/joint mobility, strength and transfers. Reason For Visit Initial Evaluation . Spinal Stenosis with neurogenic claudication. Referred by: Roxy Pablo Adult Risk Screening There are no spiritual/cultural practices/values/needs that are important to know Initial Fall Risk Screening: JAIME has not fallen in the last 6 months. JAIME has a fear of falling. He needs assistance with . Does not need assistance walking in his home. He does not need assistance in an unfamiliar setting. The patient is not using an assistive device. Fall Risk Screening: Patient is identified as a fall risk. Care Plan: Moderate Risk: Low risk interventions plus: do not leave patient on exam table unattended, supervised activity, educate patient/family on falls prevention, review safety initiatives with patient/family, family at bedside as allowed, yellow falls risk band, focus rounding attention, locate patient in area of high visibility, wheelchair, bed, or personal alarm, bedside commode, elevated toilet seat and pharmacy consult for medication concerns. Pain Scale: On a scale of 0 to 10, the patient rates the pain at 1. Please identify location of pain: lumbar spine. Pain Quality: aching and tightness. The pain makes it hard for the patient to do these things: walking, house work, relationships with family or friends and self-care (bathing, dressing, eating). Domestic Violence Screen: Does not feel threatened or abused physically, emotionally or sexually. Do you feel UNSAFE? The patient feels safe in the home. Depression/Suicide Screening: During the past 2 weeks, the patient has not felt down, depressed or hopeless. During the past 2 weeks, the patient has not felt little interest or pleasure in doing things. Insurance Insurance reviewed Visit number: 1 Approved number of visits: 15 Authorization date range: 03/22/22 Authorization not required after evaluation POC: 06/12 [facility] Supervising PT: Yeni Lebron PT, DPT, Cert DN PT Dx: M54.50; R26.9; Z74.09; M48.062 Onset Date: 2021 Subjective Current Episode of Functional Impairment and/or Pain Date of onset: 09/23/21 Mechanism of Injury:. Pt is a 86 year male presenting today with c/o lingering weakness and pain from laminectomy in August to clean up my back which was more extensive than previous surgery about 10 years ago. Pt notes he used to work at the [employer], which involved a lot of heavy lifting and things that is what star (more content not included)... Normal [facility] Therapy Communicationon 08-0 Therapy Communication Message JAIME MELCHOR canceled today . Scheduling conflict. Wants to do all therapy in [facility]. Signatures Electronically signed by : Macario Herrera, PT; Jan 03 2022 10:34AM EST (Author) Normal [facility] COVID-19, MOLECULARon 2021 SARS-CoV-2 (COVID-19) RNA BAYRON+probe Ql (Unsp spec) Not detected Normal Not Detected [facility] Comment on above: Result Comment: This test was performed under the FDA's Emergency Use Authorization (EUA). Testing was performed using the Ivelisse SARS-CoV-2 RT-PCR assay on the Ron Ivelisse 6800 System. This test has not been approved for use in asymptomatic patients and its performance in this patient population has not been evaluated. Negative results do not rule out the presence of SARS-CoV-2/COVID-19. Fact sheets for this EUA can be found at the following links: For Healthcare Providers: https://www.fda.gov/media/526231/download For Patients: https://www.fda.gov/media/761227/download Performed By: #### L [id number] #### [facility] [address] [place] [address] Zenon Singh M.D. [id number] Telephone Encounteron 2021 Business Machine Mechanic Authentication Interface Message Text Spoke to Noy and went over wound care. Pt agreed with plan. Normal [facility] [employer] [facility] Telephone Encounteron 2021 Business Machine Mechanic Authentication Interface Message Text Called patient to follow up on POD#1 s/p Mohs surgery on the right central lateral neck with complex closure repair. Doing well. Denies pain. No bleeding through the dressing. Answered all patient questions or concerns. Return to clinic as previously discussed. Michelle Schmitt MD Dermatology Department, PGY-4 Normal [facility] [employer] [facility] Patient Instructionson 07-27 Business Machine Mechanic Authentication Interface Message Text WOUND CARE INSTRUCTIONS * If you have sutures, they should be dissolve on their own. *Today do not do any activity that will elevate your blood pressure. When bending, bend at the knees not head over hips. * Please apply an ice pack to the area for 15 minutes over the bandage and then off for 45 minutes. Repeat this process for the remainder of the day. You may continue this icing process tomorrow if you so desire. * You may get the area wet 24 hours after surgery. Be cautious and gentle when cleansing the area. * You may resume excercise after the sutures are removed or when instructed by your physician. SUPPLIES: All supplies are available at drug stores without prescription. It is not necessary to use exactly the same type of dressing that was applied after surgery. 1. Mild soap and water . 2. Q-tips 3. Vaseline (Aquaphor) ointment 4. Dressing: Band-aid or telfa, gauze and tape. DAILY CARE: Clean wound daily and more if necessary, due to excessive drainage. Leave original dressing in place for 24 hours. Remove dressing and proceed to clean the wound. 1. Gently clean the wound with mild soap and water with gauze or q-tips to remove any crust or scabs 2. Gently pat the area dry with a clean gauze pad 3. With a fresh q-tip apply Vaseline or Aquaphor ointment liberally 4. Cover with a telfa pad and paper tape, or Band-Aid *sometimes you need to be a bit creative and cut the band-aid to fit the surgical site appropriately. IN CASE OF BLEEDING DO NOT PANIC: Apply direct pressure with a clean cloth, gauze, or kleenex for 20 minutes by the clock. If these measures do not stop the bleeding continue pressure and contact our office! IMPORTANT: WHILE IT IS NECESSARY TO GO TO THE EMERGENCY DEPARTMENT FOR LIFE THREATENING MATTERS, WE ASK THAT YOU PLEASE TRY TO CONTACT US FOR ANY MOHS SURGERY COMPLICATIONS FIRST. WE ARE BETTER EQUIPPED TO HANDLE MOHS COMPLICATIONS, HOWEVER, IF YOU CANNOT CONTACT US IN REGARDS TO YOUR SURGERY - THEN PROCEED TO THE EMERGENCY DEPARTMENT. DISCOMFORT 1. Tylenol may be taken for pain. Do not take any aspirin, Motrin, Advil, Aleve or any NSAID as it can cause bleeding and bruising. 2. Notify the office if there is severe pain, as you may have to come back to be evaluated. IF THE WOUND BECOMES INFLAMED, PAINFUL, HAS A FOUL ODOR, OR HAS PUS-LIKE DRAINAGE PLEASE CONTACT THIS OFFICE IMMEDIATELY. Dermatology Clinic: [address]: [phone] ([phone] [place] Office: [phone] [facility]: [phone] After 5 pm call : [phone] which calls [employer] Page Bag Adjuster (weekends, holidays, and after hours) and ask for the Dermatology Resident circulation man. Normal [facility] [employer] [facility] Progress Noteson 07-27-2021 Business Machine Mechanic Authentication Interface Message Text Identification was verified by patient verbalizing his name and date of . Patient at risk for falls:No Falls Risk protocol implemented: No DERMATOLOGIC SURGERY NURSING ASSESSMENT: PRE-PROCEDURE - ATTENDING PHYSICIAN: Dr Perdomo - PATIENT IDENTIFIED BY TWO IDENTIFIERS: name and - PRE-PROCEDURE PAIN LEVEL: 0/10 - PATIENT ALERT AND ORIENTED X3: yes - VITALS: BP 171/92 Pulse 81 ----- DERMATOLOGIC SURGERY NURSING ASSESSMENT: POST-PROCEDURE - POST-PROCEDURE PAIN LEVEL: 0/10 - POST-PROCEDURE PAIN MANAGEMENT PLAN: Tylenol (Acetaminophen) 1000 mg Q8 hours prn pain - PATIENT ALERT AND ORIENTED X3: yes - DRESSING CLEAN, DRY, AND INTACT AT DISCHARGE: yes - POST PROCEDURE INSTRUCTIONS AND PATIENT EDUCATION PROVIDED WITH VERBAL UNDERSTANDING: Yes Kristina Sinha RN Normal [facility] [employer] Business Machine Mechanic Authentication Interface Message Text Patient was identified by name and date of . David Alvarado Patient at risk for falls:Yes Falls Risk protocol implemented: Yes Normal [facility] [employer] [facility] Office Visit: skin lesion on shoulderon 03-13-2017 Alcoholism counseling (procedure) no Invalid Interpretation Code [facility] [email or web address] Work Phone: Documentation of current medications (procedure) Done Invalid Interpretation Code [facility] [email or web address] Work Phone: Fall risk assessment No Invalid Interpretation Code [facility] [email or web address] Work Phone: Protein mass conc Done Invalid Interpretation Code [facility] [email or web address] Work Phone: Protein mass conc no Invalid Interpretation Code [facility] [email or web address] Work Phone: Tobacco smoking status NHIS Never Invalid Interpretation Code [facility] [email or web address] Work Phone: Tobacco smoking status NHIS Former smoker Invalid Interpretation Code [facility] [email or web address] Work Phone: Tobacco use [facility] Former smoker Invalid Interpretation Code [facility] [email or web address] Work Phone: Office Visit: suture removal on 02-17-2017 Alcoholism counseling (procedure) no Invalid Interpretation Code [facility] [employer] Work Phone: Documentation of current medications (procedure) Done Invalid Interpretation Code [facility] [email or web address] Work Phone: Fall risk assessment No Invalid Interpretation Code [facility] [employer] Work Phone: Tobacco smoking status NHIS Never Invalid Interpretation Code [facility] [employer] Work Phone: Tobacco use [facility] Former smoker Invalid Interpretation Code [facility] [email or web address] Work Phone: Office Visit: excision left postauricular lesionon 02-11-2017 Alcoholism counseling (procedure) no Invalid Interpretation Code [facility] [email or web address] Work Phone: Documentation of current medications (procedure) Done Invalid Interpretation Code [facility] [email or web address] Work Phone: Fall risk assessment No Invalid Interpretation Code [facility] [email or web address] Work Phone: Tobacco smoking status NHIS Never Invalid Interpretation Code [facility] [email or web address] Work Phone: Tobacco use [facility] Former smoker Invalid Interpretation Code [facility] [email or web address] Work Phone: Office Visiton 01-23-2017 Alcoholism counseling (procedure) no Invalid Interpretation Code [facility] [email or web address] Work Phone: Documentation of current medications (procedure) Done Invalid Interpretation Code [facility] [email or web address] Work Phone: Fall risk assessment No Invalid Interpretation Code [facility] [email or web address] Work Phone: Protein mass conc Done [facility] [employer] Work Phone: Protein mass conc no [facility] [employer] Work Phone: Tobacco smoking status NHIS Never Invalid Interpretation Code [facility] [email or web address] Work Phone: Tobacco smoking status NHIS Former smoker [facility] [email or web address] Work Phone: Tobacco use CPHS Former smoker Invalid Interpretation Code [facility] [employer] Work Phone: Office Visiton 08-25-2016 Colonoscopy (procedure) Colonoscopy (procedure) Invalid Interpretation Code [facility] [email or web address] Work Phone: Protein mass conc Colonoscopy (procedure) Invalid Interpretation Code [facility] Work Phone: No Panel Information [facility] Vital Signs Date Time Vital Sign Value Performing Clinician Cleopatra younger 10-19-2023 10:28-0400 Body height 170.2 cm Marciosofía MtzNikki DO Work Phone: [facility] 10-19-2023 10:28-0400 Body mass index (BMI) [Ratio] 24.28 kg/m2 Marcio Nikki DO Work Phone: [facility] 10-19-2023 10:28-0400 Body temperature 97.81 [degF] Marcio Nikki DO Work Phone: [facility] 10-19-2023 10:28-0400 Body weight 70.31 kg Marcio Nikki DO Work Phone: [facility] 10-19-2023 10:28-0400 Diastolic blood pressure 74 mm[Hg] Marcio Nikki DO Work Phone: [facility] 10-19-2023 10:28-0400 Heart rate 73 /min Marcio Nikki DO Work Phone: [facility] 10-19-2023 10:28-0400 Respiratory rate 16 /min Marcio Nikki DO Work Phone: [facility] 10-19-2023 10:28-0400 SaO2% (BldA) [Mass fraction] 96 % Marcio Nikki DO Work Phone: [facility] 10-19-2023 10:28-0400 Systolic blood pressure 134 mm[Hg] Marcio Nikki DO Work Phone: [facility] 09-13-2023 11:130400 Body temperature 98.71 [degF] Yevgeniy Quiroz Jr., DPM Work Phone: [facility] 09-13-2023 11:130400 Diastolic blood pressure 76 mm[Hg] Yevgeniy Quiroz Jr. DPMercy Work Phone: [facility] 09-13-2023 11:13-0400 Heart rate 78 /min Yevgeniy Richie Jr., DPM Work Phone: [facility] 09-13-2023 11:13-0400 Systolic blood pressure 155 mm[Hg] Yevgeniy Richie Jr., DPM Work Phone: [facility] 07-07-2023 10:09-0500 Body temperature 98.29 [degF] Yevgeniy Richie Jr., DPM Work Phone: [facility] 07-07-2023 10:09-0500 Diastolic blood pressure 77 mm[Hg] Yevgeniy Richie Jr., DPM Work Phone: [facility] 07-07-2023 10:09-0500 Heart rate 70 /min Yevgeniy Richie Jr., DPM Work Phone: [facility] 07-07-2023 10:09-0500 Systolic blood pressure 131 mm[Hg] Yevgeniy Richie Jr., DPM Work Phone: [facility] 06-21-2023 10:17-0500 Body temperature 98.2 [degF] Yevgeniy Richie Jr., DPM Work Phone: [facility] 06-21-2023 10:17-0500 Diastolic blood pressure 75 mm[Hg] Yevgeniy Richie Jr., DPM Work Phone: [facility] 06-21-2023 10:17-0500 Heart rate 71 /min Yevgeniy Richie Jr., DPM Work Phone: [facility] 06-21-2023 10:17-0500 Systolic blood pressure 133 mm[Hg] Yevgeniy Richie Jr., DPM Work Phone: [facility] 04-12-2023 14:06-0500 Body height 170.2 cm Martin Hinds MD Work Phone: [facility] 04-12-2023 14:06-0500 Body mass index (BMI) [Ratio] 25.37 kg/m2 Martin Hinds MD Work Phone: [facility] 04-12-2023 14:06-0500 Body weight 73.48 kg Martin Hinds MD Work Phone: [facility] 04-12-2023 14:06-0500 Diastolic blood pressure 70 mm[Hg] Martin Hinds MD Work Phone: [facility] 04-12-2023 14:06-0500 Heart rate 90 /min Martin Hinds MD Work Phone: [facility] 04-12-2023 14:06-0500 Systolic blood pressure 136 mm[Hg] Martin Hinds MD Work Phone: [facility] 11-16-2022 12:51-0400 Body height 170 cm June Shay Other Phone: [facility] 11-16-2022 12:51-0400 Body temperature 97.7 [degF] June Shay Other Phone: [facility] 11-16-2022 12:51-0400 Diastolic blood pressure 77 mm[Hg] June Shay Other Phone: [facility] 11-16-2022 12:51-0400 Heart rate 74 /min June Shay Other Phone: [facility] 11-16-2022 12:51-0400 SaO2% (BldA) [Mass fraction] 98 % June Shay Other Phone: [facility] 11-16-2022 12:51-0400 Systolic blood pressure 128 mm[Hg] June Shay Other Phone: [facility] 05-24-2022 10:27-0500 Body height 170.2 cm Roxy Pablo MD Work Phone: [facility] 05-24-2022 10:27-0500 Body mass index (BMI) [Ratio] 24.9 kg/m2 Roxy Pablo MD Work Phone: [facility] 05-24-2022 10:27-0500 Body weight 72.12 kg Roxy Pablo MD Work Phone: [facility] 05-10-2022 11:01-0500 Body height 170.2 cm Roxy Pablo MD Work Phone: [facility] 05-10-2022 11:01-0500 Body mass index (BMI) [Ratio] 24.9 kg/m2 Roxy Pablo MD Work Phone: [facility] 05-10-2022 11:01-0500 Body weight 72.12 kg Roxy Pablo MD Work Phone: [facility] 04-26-2022 10:12-0500 Body height 170.2 cm Roxy Pablo MD Work Phone: [facility] 04-26-2022 10:12-0500 Body mass index (BMI) [Ratio] 26 kg/m2 Roxy Pablo MD Work Phone: [facility] 04-26-2022 10:12-0500 Body weight 75.3 kg Roxy Pablo MD Work Phone: [facility] 12-15-2021 10:51-0400 Body height 170.2 cm Roxy Pablo MD Work Phone: [facility] 12-15-2021 10:51-0400 Body mass index (BMI) [Ratio] 26 kg/m2 Roxy Pablo MD Work Phone: [facility] 12-15-2021 10:51-0400 Body weight 75.3 kg Roxy Pablo MD Work Phone: [facility] 09-13-2021 11:45-0400 Body height 170.2 cm Roxy Pablo MD Work Phone: [facility] 09-13-2021 11:45-0400 Body mass index (BMI) [Ratio] 26.63 kg/m2 Roxy Pablo MD Work Phone: [facility] 09-13-2021 11:45-0400 Body weight 77.11 kg Roxy Pablo MD Work Phone: [facility] 11-22-2018 11:09-0400 BP Diastolic 48 mm[Hg] [facility] [place] Comment on above: standard cuff 11-22-2018 11:09-0400 BP Systolic 80 mm[Hg] [facility] [place] Comment on above: standard cuff 11-22-2018 11:02-0400 BMI (Body Mass Index) 23.48 kg/m2 [facility] [place] 11-22-2018 11:02-0400 Body weight 72.12 kg [facility] [place] 11-22-2018 11:02-0400 Height 175.3 cm [facility] [employer] 11-22-2018 11:02-0400 P[facility] (Heart Rate) 77 /[facility] 11-22-2018 11:02-0400 Pulse Oximetry 98 % [facility] [place] 11-22-2018 11:02-0400 Respiratory Rate 16 /min [facility] [employer] [facility] 01-23-2017 09:58-0400 BMI (Body Mass Index) 24.36 kg/m2 Tam Friedman MD [facility] [employer] Work Phone: 01-23-2017 09:58-0400 Body Temperature 97.7 [degF] Tam Friedman MD [facility] [employer] Work Phone: 01-23-2017 09:58-0400 BP Diastolic 64 mm[Hg] Tam Friedman MD [facility] Work Phone: 01-23-2017 09:58-0400 BP Systolic 93 mm[Hg] Tam Friedman MD [facility] [employer] Work Phone: 01-23-2017 09:58-0400 Height 175.26 cm Tam Friedman MD [facility] [employer] Work Phone: 01-23-2017 09:58-0400 Pulse (Heart Rate) 82 /min Tam Friedman MD [facility] [employer] Work Phone: 01-23-2017 09:58-0400 Respiratory Rate 18 /min Tam Friedman MD [facility] Work Phone: 01-23-2017 09:58-0400 Weight 74.84 kg Tam Friedman MD [facility] Work Phone: Encounters Encounter Date Encounter Type Care Provider Facility Start: 02-06-2024 End: 02-06-2024 ambulatory GEMA CHU Facility:[facility] Start: 02-06-2024 End: 02-06-2024 Patient encounter procedure Clare Vasquez MD Work Phone: Ophthalmology Comment on above: Primary open-angle g laucoma, right eye, severe stage (Primary Dx); Primary open-angle glaucoma, left eye, moderate stage; Optic atrophy; Hypercholesteremia; Atrial fibrillation, unspecified type (HCC) Start: 01-24-2024 ambulatory [facility] Start: 11-01-2023 End: 11-01-2023 ambulatory CLARE VASQUEZ Facility:[facility] Start: 11-01-2023 End: 11-01-2023 Patient encounter procedure Clare Vasquez MD Work Phone: Ophthalmology Comment on above: Primary open-angle g laucoma, right eye, severe stage (Primary Dx); Primary open-angle glaucoma, left eye, moderate stage; S/P eye surgery; Optic atrophy; Hypercholesteremia; Atrial fibrillation, unspecified type (HCC) Start: 10-20-2023 End: 10-21-2023 ambulatory MARCIOSOFÍA MTZANDRAN [facility] Start: 10-19-2023 End: 10-19-2023 Office outpatient new 45 minutes Marcio Jordan DO Work Phone: [facility] Comment on above: Seborrheic dermatiti s of scalp (Primary Dx); History of skin cancer; Mass of right axilla; Open wound of right hand without foreign body, unspecified wound type, initial encounter; Bilateral impacted cerumen; Paroxysmal atrial fibrillation (HCC) Start: 10-19-2023 End: 10-19-2023 ambulatory MARCIO JORDAN [facility] Start: 10-19-2023 ambulatory MARCIO MTZANDRAN [facility] Start: 09-13-2023 End: 09-13-2023 Office outpatient visit 15 minutes Yevgeniy Quiroz DPM Work Phone: [facility] Comment on above: Foot drop, right orin t (Primary Dx) Start: 09-13-2023 End: 09-13-2023 ambulatory YEVGENIY QUIROZ JR. [facility] Start: 07-07-2023 End: 07-07-2023 Office outpatient visit 15 minutes Yevgeniy Quiroz DPM Work Phone: [facility] Comment on above: Foot drop, right orin t (Primary Dx); Onychomycosis Start: 07-07-2023 End: 07-07-2023 ambulatory JUNE SHAY [facility] Start: 07-03-2023 End: 07-03-2023 ambulatory CLARE VASQUEZ Facility:[facility] Start: 07-03-2023 End: 07-03-2023 Patient encounter procedure Clare Vasquez MD Work Phone: Ophthalmology Comment on above: Primary open-angle g laucoma, right eye, severe stage (Primary Dx); Primary open-angle glaucoma, left eye, moderate stage; S/P eye surgery; Optic atrophy; Pseudophakia of both eyes Start: 06-21-2023 End: 06-21-2023 Office outpatient new 30 minutes Yevgeniy Quiroz DPM Work Phone: [facility] Comment on above: Onychomycosis (Prima ry Dx) Start: 06-21-2023 End: 06-21-2023 ambulatory JUNE SHAY [facility] Start: 05-26-2023 End: 05-26-2023 ambulatory CLARE VASQUEZ Facility:[facility] Start: 05-02-2023 End: 05-02-2023 ambulatory [facility] Start: 05-02-2023 End: 05-02-2023 Encounter for general adult medical examination without abnormal findings [facility] Start: 04-26-2023 ambulatory CLARE VASQUEZ Facili ty:[facility] Start: 04-26-2023 End: 04-26-2023 [facility] Start: 04-19-2023 End: 04-19-2023 ambulatory CLARE VASQUEZ Facility:[facility] Start: 04-19-2023 End: 04-19-2023 Patient encounter procedure Clare Vasquez MD Work Phone: Ophthalmology Comment on above: S/P eye surgery (Scarlet jared Dx); Primary open-angle glaucoma, right eye, severe stage; Primary open-angle glaucoma, left eye, moderate stage; Optic atrophy Start: 04-18-2023 End: 04-18-2023 ambulatory CLARE VASQUEZ Facility:[facility] Start: 04-12-2023 End: 04-12-2023 Office outpatient new 45 minutes Martin Hinds MD Work Phone: [facility] Comment on above: Hypertension, unspec ified type (Primary Dx); Atrial fibrillation, unspecified type (CMS/HCC); Malignant neoplasm of urinary bladder, unspecified site (CMS/HCC); Stenosis of carotid artery, unspecified laterality; Stenosis of carotid artery, unspecified laterality; Stenosis of left carotid artery; Actinic keratosis Start: 04-12-2023 End: 04-12-2023 ambulatory [facility] Start: 04-03-2023 Orders Only Clare dozier MD Work Phone: Ophthalmology Comment on above: Primary open angle g laucoma of right eye, severe stage (Primary Dx) Start: 03-20-2023 End: 03-21-2023 ambulatory JUNE Huerta [facility] Start: 03-20-2023 End: 03-20-2023 Subsequent hospital visit by physician Oscar Leyva [facility] Comment on above: Paroxysmal atrial fi brillation (CMS/HCC) Start: 03-13-2023 End: 03-13-2023 ambulatory CLARE VASQUEZ Facility:[facility] Start: 03-13-2023 End: 03-13-2023 Patient encounter procedure Clare Vasquez MD Work Phone: Ophthalmology Comment on above: Primary open-angle g laucoma, right eye, severe stage (Primary Dx); Primary open-angle glaucoma, left eye, moderate stage; Optic atrophy; Hypercholesteremia; Atrial fibrillation, unspecified type (HCC) Start: 12-22-2022 End: 12-22-2022 Emergency department patient visit DEAN ESTRADA [facility] Start: 11-16-2022 End: 11-16-2022 Emergency department patient visit Cyrus Vega [facility] Start: 09-09-2022 Documentation procedure Silvana Vinson leonard HASSANN [facility] Start: 09-06-2022 Orders Only Roxy Pablo MD Work Phone: [facility] Physicians Comment on above: Spinal stenosis of l umbar region with neurogenic claudication (Primary Dx) Start: 09-06-2022 End: 09-06-2022 Office outpatient visit 15 minutes Roxy Pablo MD Work Phone: [facility] Comment on above: Spinal stenosis of l umbar region with neurogenic claudication (Primary Dx) Start: 05-24-2022 End: 05-24-2022 Postop follow up visit related to original px Roxy Pablo MD Work Phone: [facility] Comment on above: Left carpal tunnel s yndrome (Primary Dx) Start: 05-10-2022 End: 05-10-2022 Postop follow up visit related to original px Roxy Pablo MD Work Phone: [facility] Comment on above: Left carpal tunnel s yndrome (Primary Dx) Start: 05-09-2022 Orders Only Roxy Pablo MD Work Phone: [facility] Comment on above: Pain (Primary Dx) Start: 05-03-2022 Refill Roxy Pablo MD Work Phone: [facility] Comment on above: Left carpal tunnel s yndrome Start: 04-27-2022 Refclement Pablo MD Work Phone: [facility] Comment on above: Left carpal tunnel s yndrome (Primary Dx) Start: 04-26-2022 End: 04-26-2022 Office outpatient visit 15 minutes Roxy Pablo MD Work Phone: [facility] Comment on above: Left carpal tunnel s yndrome (Primary Dx) Start: 04-19-2022 End: 04-19-2022 Patient encounter procedure Nasreen Velasquezmoisés OD Work Phone: Ophthalmology Comment on above: Primary open-angle g laucoma, left eye, moderate stage (Primary Dx); Primary open-angle glaucoma, right eye, severe stage; Corneal scar, left eye Start: 04-04-2022 Patient encounter procedure June Shay Work Phone: [facility] [employer] Work Phone: Start: 04-04-[address] Roxy Pablo Facility:[id number] Start: 04-01-2022 PTFUADULT4, Provider : Pati Henry, Status: Pen, Time: 9:15 AM June Shay Work Phone: [facility] [employer] Work Phone: Start: 03-31-2022 Documentation procedure Silvana valle LPN [facility] Start: 03-30-2022 Admission to [facility] Roxy Pablo MD Work Phone: [facility] Comment on above: Left carpal tunnel s yndrome (Primary Dx) Start: 03-30-[address] Roxy Pablo Facility:[id number] Start: 03-30-2022 Patient encounter procedure June Shay Work Phone: [facility] [employer] Work Phone: Start: 03-25-2022 Patient encounter procedure June Shay Work Phone: [facility] [employer] Work Phone: Start: 03-25-2022 PTFUADULT4, Provider : Pati Henry, Status: Pen, Time: 9:15 AM June Shay Work Phone: [facility] [employer] Work Phone: Start: 03-25-[address] Roxy Pablo Facility:[id number] Start: 03-23-[address] June Shay Facility:[id number] Start: 03-23-2022 Patient encounter procedure June Shay Work Phone: [facility] [employer] Work Phone: Start: 03-19-[address] June Shay Facility:[id number] Start: 03-18-2022 Patient encounter procedure June Shay Work Phone: [facility] [employer] Work Phone: Start: 03-09-2022 Patient encounter procedure June Shay Work Phone: [facility] [employer] Work Phone: Start: 03-04-2022 Patient encounter procedure June Shay Work Phone: [facility] [employer] Work Phone: Start: 02-23-2022 Patient encounter procedure June Shay Work Phone: [facility] [employer] Work Phone: Start: 02-18-2022 Patient encounter procedure June Shay Work Phone: [facility] [employer] Work Phone: Start: 02-18-2022 PTFUADULT4, Provider : Pati Henry, Status: Pen, Time: 9:15 AM June Shay Work Phone: [facility] [employer] Work Phone: Start: 02-16-2022 Patient encounter procedure June Shay Work Phone: [facility] [employer] Work Phone: Start: 02-15-2022 Refill Clare dozier MD Work Phone: Ophthalmology Comment on above: Refill Request Start: 02-11-2022 Patient encounter procedure June Shay Work Phone: [facility] [employer] Work Phone: Start: 02-11-2022 PTFUADULT4, Provider : Pati Henry, Status: Pen, Time: 9:15 AM June Shay Work Phone: [facility] [employer] Work Phone: Start: 02-09-2022 Patient encounter procedure June Shay Work Phone: [facility] [employer] Work Phone: Start: 02-04-2022 Patient encounter procedure June Shay Work Phone: [facility] [employer] Work Phone: Start: 02-04-2022 PTFUADULT4, Provider : Pati Henry, Status: Pen, Time: 9:15 AM June Shay Work Phone: [facility] [employer] Work Phone: Start: 02-02-2022 Patient encounter procedure June Shay Work Phone: [facility] [employer] Work Phone: Start: 01-28-2022 AUDIT June leone Work Phone: [facility] [facility] Work Phone: Start: 01-28-2022 PTFUADULT4, Provider : Pati Henry, Status: Pen, Time: 9:15 AM June Shay Work Phone: [facility] [employer] Work Phone: Start: 01-26-2022 Patient encounter procedure June Shay Work Phone: [facility] [employer] Work Phone: Start: 01-24-2022 End: 01-24-2022 Office outpatient visit 15 minutes Gwendoyln Machado CNP Work Phone: [facility] Comment on above: Left carpal tunnel s yndrome Start: 01-21-2022 Patient encounter procedure June Shay Work Phone: [facility] [employer] Work Phone: Start: 01-21-2022 PTFUADULT4, Provider : Pati Henry, Status: Pen, Time: 9:15 AM June Shay Work Phone: [facility] [place] Work Phone: Start: 01-17-2022 Patient encounter procedure June Shay Work Phone: [facility] [place] Work Phone: Start: 01-06-2022 End: 01-07-2022 ambulatory PROVIDER NOT IN SYSTEM [facility] Start: 01-03-2022 Patient encounter procedure June Shay Work Phone: [facility] [place] Work Phone: Start: 12-22-2021 End: 12-22-2021 Patient encounter procedure Clare Vasquez MD Work Phone: Ophthalmology Comment on above: Primary open-angle g laucoma, right eye, severe stage (Primary Dx); Primary open-angle glaucoma, left eye, moderate stage; Pseudophakia of both eyes; Benign prostatic hyperplasia without lower urinary tract symptoms; Atrial fibrillation, unspecified type (HCC) Start: 12-15-2021 End: 12-15-2021 Postop follow up visit related to original px Roxy Pablo MD Work Phone: [facility] Comment on above: Spinal stenosis of l umbar region with neurogenic claudication (Primary Dx) Start: 11-03-2021 End: 11-03-2021 Postop follow up visit related to original px Roxy Pablo MD Work Phone: [facility] Comment on above: Spinal stenosis of l umbar region with neurogenic claudication (Primary Dx) Start: 10-13-2021 Orders Only Roxy Pablo MD Work Phone: [facility] Comment on above: Spinal stenosis of l umbar region with neurogenic claudication (Primary Dx) Start: 10-06-2021 End: 10-06-2021 Postop follow up visit related to original px Roxy Pablo MD Work Phone: [facility] Comment on above: Spinal stenosis of l umbar region with neurogenic claudication (Primary Dx) Start: 09-21-2021 Preprocedural examination done Roxy Pablo MD Work Phone: [facility] Start: 09-20-2021 End: 09-20-2021 ambulatory ROXY PABLO [facility] Start: 09-14-2021 End: 09-14-2021 Patient encounter procedure Clare Vasquez MD Work Phone: Ophthalmology Comment on above: Primary open-angle g laucoma, right eye, severe stage (Primary Dx); Primary open-angle glaucoma, left eye, moderate stage; S/P eye surgery Start: 09-13-2021 End: 09-14-2021 Orders Only Roxy Pablo MD Work Phone: [facility] Comment on above: Spinal stenosis of l umbar region with neurogenic claudication (Primary Dx); Exposure to SARS-associated coronavirus Spinal stenosis of l umbar region with neurogenic claudication (Primary Dx); Preoperative clearance Start: 09-13-2021 Preoperative state Roxy Pablo MD Work Phone: [facility] Start: 09-13-2021 End: 09-13-2021 Office outpatient new 30 minutes June Shay MD Work Phone: [facility] Comment on above: Spinal stenosis of l umbar region with neurogenic claudication (Primary Dx); Back pain, unspecified back location, unspecified back pain laterality, unspecified chronicity Start: 08-27-2021 Orders Only Roxy Pablo MD Work Phone: [facility] Comment on above: Pain (Primary Dx) Start: 07-27-2021 End: 07-29-2021 ambulatory [facility] Facility:[facility] Start: 11-16-2020 End: 11-16-2020 Patient encounter procedure Sotero Helms MD Work Phone: [facility] Comment on above: Carpal tunnel syndro me on left (Primary Dx); Generalized weakness; Ulnar neuropathy at elbow, left Start: 2020 End: 2020 Transcribe Orders Sotero Helms MD Work Phone: [facility] Comment on above: Generalized weakness (Primary Dx) Start: 01-11-2019 End: 01-11-2019 Telephone encounter Shelli Sebastian Work Phone: [facility] Cardiology Comment on above: Appointment Start: 11-22-2018 End: 11-22-2018 Office outpatient visit 15 minutes Ayaz Wright Work Phone: [facility] Comment on above: Persistent atrial fi brillation (Primary Dx); Orthostasis; Idiopathic hypotension; Hyperlipidemia, unspecified hyperlipidemia type; Encounter for loop recorder at end of battery life Start: 08-23-2018 End: 08-23-2018 Telephone encounter Alisa Krueger [facility] Cardiology Comment on above: Advice Only Start: 05-01-2018 End: 05-01-2018 Patient encounter procedure Rachael Mary [facility] Cardiology Comment on above: Other Procedures Date Procedure Procedure Detail Performing Clinician Start: 02-06-2024 Fundus photography w/interpretation & report Clare Vasquez MD Work Phone: Start: 11-01-2023 End: 11-01-2023 Visual field xm uni/bi w/interp extended exam Clare Vasquez MD Work Phone: Start: 10-19-2023 Adult depression screening assessment Marcio Moreldidi GUARDADO Work Phone: Start: 07-03-2023 Fundus photography w/interpretation & report Clare Vasquez MD Work Phone: Start: 03-20-2023 ECG 12-LEAD JUNE SINGH Start: 03-20-2023 Ecg routine ecg w/le ast 12 lds trcg only w/o i&r June Shay MD Work Phone: Start: 03-13-2023 End: 03-13-2023 Visual field xm uni/bi w/interp extended exam Clare Vasquez MD Work Phone: Start: 04-19-2022 Computerized ophthal yecenia imaging optic nerve Nasreen Jimenez OD Work Phone: Start: 12-22-2021 End: 12-22-2021 Visual field xm uni/bi w/interp extended exam Clare Vasquez MD Work Phone: Start: 02-15-2021 H/O: surgery S/P eye surgery Radha Vasquez MD Work Phone: Start: 02-11-2017 End: 02-15-2017 Repair intermediate n/h/f/xtrnl gent 2.5cm/< Tam Friedman MD Work Phone: Start: 02-11-2017 End: 02-15-2017 Intmd wnd repair n-hf/genit Tam Friedman MD Work Phone: H/O: surgery S/P eye surgery Clare medellin MD Work Phone: H/O: surgery S/P eye surgery Clare medellin MD Work Phone: H/O: surgery S/P eye surgery Clare medellin MD Work Phone: H/O: surgery S/P eye surgery Clare medellin MD Work Phone: Plan of Treatment Date Care Activity Detail Author Start: 09-19-2032 DTaP/Tdap/Td Vaccine s (2 - Td or Tdap) DTaP/Tdap/Td Vaccines (2 - Td or Tdap) [facility] Start: 09-19-2032 Tetanus vaccination Tetanus: Every 1 0yrs [facility] Start: 09-19-2032 Urine microalbumin profile DTaP,Tdap,Td Vaccine (2 - Td or Tdap) [facility] Start: 10-18-2024 Depression screening using PHQ-9 (Patient Health Questionnaire 9) score Depression Screening (PHQ-2/9) [facility] Start: 09-21-2024 Diabetes Screening Diabetes Screenin [facility] Start: 07-29-2024 End: 07-29-2024 Patient encounter procedure 07/29/2024 1:45 PM EST Office Visit [facility] [address] [place] [address] Clare Vasquez MD [address] [place] [address] 6 months vf/oct Ophthalmology Comment on above: 6 months vf/oct Start: 05-02-2024 History and physical examination, annual for health maintenance Wellness Visit [facility] Start: 02-27-2024 End: 02-27-2024 Patient encounter procedure 02/27/2024 11:30 AM EDT Office Visit [facility] [address] [place] [address] Marcio Jordan, [address] [place] [address] [facility] Start: 02-06-2024 End: 02-06-2024 Patient encounter procedure 02/06/2024 3:00 PM EDT Office Visit [facility] [address] [place] [address] Clare Vasquez MD [address] [place] [address] fp-return in 3 months Ophthalmology Comment on above: fp-return in 3 month s Start: 01-28-2024 Covid-19 Vaccine ( season) Covid-19 Vaccine () [facility] Start: 01-28-2024 Influenza vaccination Influenza Vacc ine (#1) [facility] Start: 12-13-2023 End: 12-13-2023 Patient encounter procedure 12/13/2023 11:15 AM EDT Office Visit [facility] [address] [place] [address] Yevgeniy Quiroz Jr., DPM [address] [phone] [facility] Start: 10-20-2023 End: 10-20-2023 Patient encounter procedure 10/20/2023 10:00 AM EDT Appointment [facility] Ultrasound [address] [place] [address] Marcio Jordan DO [address] [place] [address] [facility] Start: 10-19-2023 End: 10-19-2023 Patient encounter procedure 10/19/2023 11:00 AM EDT Office Visit [facility] [address] [place] [phone] Marcio Jordan DO [address] [place] [address] [facility] Start: 10-06-2023 End: 10-06-2023 Patient encounter procedure 10/06/2023 10:30 AM EDT Office Visit [facility] Pod[facility] [address] [facility] [place] [address] Yevgeniy Quiroz Jr., DPMercy [address] [place] [address] [facility] Start: 09-12-2023 End: 09-12-2023 Patient encounter procedure 09/12/2023 2:30 PM EDT Office Visit [facility] [address] [place] [address] Marcio Jordan, [address] [place] [address] [facility] Start: 07-21-2023 COVID-19 Vaccine () COVID-19 Vaccine () [facility] Start: 07-07-2023 End: 07-07-2023 Patient encounter procedure 07/07/2023 10:15 AM EST Office Visit [facility] Physician [facility] Podiat[facility] [address] [facility] [place] [address] Yevgeniy uQiroz Jr., DPMercy [address] [place] [address] [facility] Physician [facility] Start: 05-29-2023 Advance Directive Discussion Advance Directive Discussion [facility] Start: 05-29-2023 Behavioral Health Screening Behavioral Health Screening [facility] Start: 05-29-2023 Depression Assessment Depression Ass essment [facility] Start: 05-15-2023 COVID-19 Vaccine (4 - Pfizer risk series) COVID-19 Vaccine (4 - Pfizer risk series) [facility] Start: 05-02-2023 End: 05-02-2023 Patient encounter procedure 05/02/2023 12:45 PM EST Office Visit [facility] Internal Medicine [address] [place] [address] Martin Hinds MD [address] [place] [address] [facility] Start: 04-05-2023 COVID-19 Vaccine (4 - Pfizer series) COVID-19 Vaccine (4 - Pfizer series) [facility] Start: 01-27-2023 Covid-19 Vaccine ( season) Covid-19 Vaccine ( season) [facility] Start: 10-12-2022 End: 10-12-2022 Patient encounter procedure 10/12/2022 11:15 AM EDT Office Visit [facility] Medicine [address] [place] [address] [place] [phone] Roxy Pablo MD [address] [place] [address] [facility] Orthopedic [facility] Start: 10-10-2022 End: 10-10-2022 Patient encounter procedure 10/10/2022 11:00 AM EDT Appointment [address] [address] Roxy Pablo MD [address] [place] [address] [facility] MRI Start: 09-27-2022 End: 09-27-2022 Patient encounter procedure 09/27/2022 10:00 AM EDT Office Visit [facility] Orthopedic [address] [id number] Roxy Pablo MD [address] [place] [address] [facility] Orthopedic [facility] Start: 09-14-2022 End: 09-14-2022 Patient encounter procedure 09/14/2022 10:00 AM EDT Appointment [facility] MRI [address] [place] [phone] Roxy Pablo MD [address] [place] [address] [facility] MRI Start: 05-29-2022 Advance Directive Discussion Advance Directive Discussion [facility] Start: 05-29-2022 Depression Assessment Depression Ass essment [facility] Start: 05-24-2022 End: 05-24-2022 Patient encounter procedure 05/24/2022 Office Visit Orthopedic Surgery Roxy Pablo MD [address] [place] [address] [facility] Start: 05-10-2022 End: 05-10-2022 Patient encounter procedure 05/10/2022 Office Visit Orthopedic Surgery Roxy Pablo MD [address] [place] [address] [facility] Start: 04-28-2022 End: 04-28-2022 Admission to same day surgery center 04/28/2022 Surgery oRxy Pablo MD [address] [place] [address] LEFT CARPAL TUNNEL RELEASE [facility] Periop Comment on above: LEFT CARPAL TUNNEL R ELEASE Start: 04-28-2022 End: 04-28-2022 RELEASE CARPAL TUNNEL RELEASE CARPAL TUNNEL Left carpal tunnel syndrome 04/28/2022 3:10 PM [facility] Main OR Start: 04-28-2022 End: 04-28-2022 Admission to same day surgery center 04/28/2022 Surgery Roxy Pablo MD [address] [place] [address] LEFT CARPAL TUNNEL [facility] Periop Comment on above: LEFT CARPAL TUNNEL R ELEASE Start: 04-28-2022 End: [facility]28[facility] Start: 04-28-2022 Subsequent hospital visit by physician 04/28/2022 Hospital Encounter Roxy Pablo MD [address] [place] [address] [facility] Per[facility] Start: 04-26-2022 End: 04-26-2022 Patient encounter procedure 04/26/2022 Surgical Consult Orthopedic Surgery Viau, Roxy Mccallum MD [address] [place] [address] [facility] Start: 04-06-2022 PTFUADULT4, Provider : Pati Henry, Status: Pen, Time: 9:15 AM PTFUADULT4, Provider: Pati Henry, Status: Pen, Time: 9:15 AM [facility] Work Phone: Start: 04-04-2022 PTRECHECKA, Provider : Yeni Lebron, Status: Pen, Time: 9:30 AM PTRECHECKA, Provider: Yeni Lebron, Status: Pen, Time: 9:30 AM [facility] Work Phone: Start: 04-01-2022 PTFUADULT4, Provider : Pati Henry, Status: Pen, Time: 9:15 AM PTFUADULT4, Provider: Pati Henry, Status: Pen, Time: 9:15 AM [facility] Work Phone: Start: 03-30-2022 PTFUADULT4, Provider : Pati Henry, Status: Pen, Time: 9:15 AM PTFUADULT4, Provider: Pati Henry, Status: Pen, Time: 9:15 AM [facility] Work Phone: Start: 03-25-2022 PTFUADULT4, Provider : Pati Henry, Status: Pen, Time: 9:15 AM PTFUADULT4, Provider: Pati Henry, Status: Pen, Time: 9:15 AM [facility] Work Phone: Start: 03-23-2022 PTFUADULT4, Provider : Pati Henry, Status: Pen, Time: 10:00 AM PTFUADULT4, Provider: Pati Henry, Status: Pen, Time: 10:00 AM [facility] Start: 03-18-2022 PTFUADULT4, Provider : Pati Henry, Status: Pen, Time: 9:15 AM PTFUADULT4, Provider: Pati Henry, Status: Pen, Time: 9:15 AM [facility] Work [facility]: Start: 03-16-2022 PTFUADULT4, Provider : Pati Henry, Status: Pen, Time: 10:00 AM PTFUADULT4, Provider: Pati Henry, Status: Pen, Time: 10:00 AM [facility] Work Phone: Start: 03-09-2022 PTFUADULT4, Provider : Pati Henry, Status: Pen, Time: 10:00 AM PTFUADULT4, Provider: Pati Henry, Status: Pen, Time: 10:00 AM Rehab [facility] Work Phone: Start: 03-04-2022 PTFUADULT4, Provider : Pati Henry, Status: Pen, Time: 9:15 AM PTFUADULT4, Provider: Pati Henry, Status: Pen, Time: 9:15 AM [facility] Work Phone: Start: 02-23-2022 PTFUADULT4, Provider : Pati Henry, Status: Pen, Time: 9:15 AM PTFUADULT4, Provider: Pati Henry, Status: Pen, Time: 9:15 AM [facility]: Start: 02-21-2022 PTRECHECKA, Provider : Yeni Lebron, Status: Pen, Time: 10:15 AM PTRECHECKA, Provider: Yeni Lebron, Status: Pen, Time: 10:15 AM [facility] Work Phone: Start: 02-18-2022 COVID-19 VACCINE (5 - Booster for Pfizer series) COVID-19 VACCINE (5 - Booster for Pfizer series) [facility] Start: 02-18-2022 PTFUADULT4, Provider : Pati Henry, Status: Pen, Time: 9:15 AM PTFUADULT4, Provider: Pati Henry, Status: Pen, Time: 9:15 AM [facility] Work Phone: Start: 02-16-2022 PTFUADULT4, Provider : Pati Henry, Status: Pen, Time: 9:15 AM PTFUADULT4, Provider: Pati Henry, Status: Pen, Time: 9:15 AM [facility] Work Phone: Start: 02-11-2022 PTFUADULT4, Provider : Pati Henry, Status: Pen, Time: 9:15 AM PTFUADULT4, Provider: Pati Henry, Status: Pen, Time: 9:15 AM [facility] Work Phone: Start: 02-09-2022 PTFUADULT4, Provider : Pati Henry, Status: Pen, Time: 9:15 AM PTFUADULT4, Provider: Pati Henry, Status: Pen, Time: 9:15 AM [facility] Work Phone: Start: 02-04-2022 PTFUADULT4, Provider : Pati Henry, Status: Pen, Time: 9:15 AM PTFUADULT4, Provider: Pati Henry, Status: Pen, Time: 9:15 AM [facility] Work Phone: Start: 02-02-2022 PTFUADULT4, Provider : Shonna Cloe, Status: Pen, Time: 9:15 AM PTFUADULT4, Provider: Shonna Cole, Status: Pen, Time: 9:15 AM [facility] Work Phone: Start: 01-28-2022 PTFUADULT4, Provider : Pati Henry, Status: Pen, Time: 9:15 AM PTFUADULT4, Provider: Pati Henry, Status: Pen, Time: 9:15 AM [facility] Work Phone: Start: 01-27-2022 Influenza vaccination [facility] Start: 01-26-2022 PTFUADULT4, Provider : Pati Henry, Status: Pen, Time: 9:15 AM PTFUADULT4, Provider: Pati Henry, Status: Pen, Time: 9:15 AM [facility] Work Phone: Start: 01-21-2022 PTFUADULT4, Provider : Pati Henry, Status: Pen, Time: 9:15 AM PTFUADULT4, Provider: Pati Henry, Status: Pen, Time: 9:15 AM [facility] Work Phone: Start: 01-17-2022 PTEVALADUL, Provider : Yeni Lebron, Status: Pen, Time: 10:45 AM PTEVALADUL, Provider: Yeni Lebron, Status: Pen, Time: 10:45 AM [facility] Work Phone: Start: 12-15-2021 End: 12-15-2021 Patient encounter procedure 12/15/2021 Office Visit Orthopedic Surgery Viau, Roxy Mccallum MD [address] [place] [address] [facility] Start: 12-13-2021 COVID-19 Vaccine (5 - Booster for Pfizer series) COVID-19 Vaccine (5 - Booster for Pfizer series) [facility] Start: 11-03-2021 End: 11-03-2021 Patient encounter procedure 11/03/2021 Office Visit Orthopedic Surgery Roxy Pablo MD [address] [place] [address] [facility] Start: 09-23-2021 End: 09-23-2021 Admission to same day surgery center 09/23/2021 Surgery Roxy Pablo MD [address] [place] [address] LAMINECTOMY DECOMPRESSION L3- 5 [facility] Periop Comment on above: LAMINECTOMY DECOMPRE SSION L3- 5 Start: 09-23-2021 End: 09-23-2021 LAMINECTOMY DECOMPRESSION LUMBAR SINGLE LEVEL LAMINECTOMY DECOMPRESSION LUMBAR SINGLE LEVEL Spinal stenosis of lumbar region with neurogenic claudication 09/23/2021 9:14 AM EDT [facility] Main OR Start: 09-23-2021 Subsequent hospital visit by physician 09/23/2021 Hospital Encounter Roxy Pablo MD [address] [place] [address] [facility] Per[facility] Start: 09-21-2021 End: 09-21-2021 Admission to establishment 09/21/2021 Clinical Support Pre-Admission Testing [facility] Preadmission Testing Start: 09-20-2021 End: 09-13-2022 SARS-CoV-2 (COVID-19) RdRp gene [Presence] in Respiratory specimen by BAYRON with probe detection COVID-19, Molecular Microbiology Routine Spinal stenosis of lumbar region with neurogenic claudication Exposure to SARS-associated coronavirus Expected: 09/20/2021, Expires: 09/13/2022 [facility] Work Phone: Comment on above: Expected: 09/20/2021 , Expires: 09/13/2022 Start: 09-20-2021 End: 09-20-2021 Patient encounter procedure 09/20/2021 Office Visit Lab Roxy Pablo MD [address] [place] [address] [facility] Start: 09-13-2021 End: 09-13-2021 Patient encounter procedure 09/13/2021 Office Visit Orthopedic Surgery June Shay MD [address] [place] [address] Roxy Pablo MD [address] [place] [address] [facility] Start: 07-09-2021 COVID-19 Vaccine (4 - Booster for Pfizer series) COVID-19 Vaccine (4 - Booster for Pfizer series) [facility] Start: 06-08-2021 COVID-19 VACCINE (4 - Booster for Pfizer series) COVID-19 VACCINE (4 - Booster for Pfizer series) [facility] Start: 05-29-2021 ADVANCE DIRECTIVE DISCUSSION ADVANCE DIRECTIVE DISCUSSION [facility] Start: 05-29-2021 DEPRESSION ASSESSMENT DEPRESSION ASS ESSMENT [facility] Start: 01-27-2021 Influenza vaccination Sequenti al Influenza Vaccine (Season Ended) [facility] Start: 12-20-2020 COVID-19 Vaccine (3 - Booster for Pfizer series) COVID-19 Vaccine (3 - Booster for Pfizer series) [facility] Start: 11-16-2020 End: 11-16-2020 Patient encounter procedure 11/16/2020 Procedure visit Neurology Sotero Helms MD [address] [address] [phone] [facility] Start: 06-03-2019 End: 06-03-2019 Office Visit 06/03/2019 Office Visit Cardiovascular Medicine Ayaz Wright, DO [address] [place] [address] [facility] Start: 03-15-2019 DIABETES SCREEN DIABETES SCREEN [facility] Start: 03-15-2019 Diabetes Screening Diabetes Screenin g [facility] Start: 01-27-2019 Influenza vaccination A ANGELA TELOS Start: 10-30-2018 End: 10-30-2018 Ambulatory [facility] Start: 01-27-2018 Influenza vaccination INFLUENZA VACC INE (#1) [facility] Start: 03-15-2017 End: 03-15-2017 Appointment Appointment [facility] [employer] Work Phone: Start: 03-13-2017 End: 03-13-2017 Appointment Appointment [facility] [employer] Work Phone: Start: 02-17-2017 End: 02-17-2017 Appointment Appointment [facility] [employer] Work Phone: Start: 02-11-2017 End: 02-11-2017 Excision malignant lesion s/n/h/f/g 0.6-1.0 cm Excision Malignant Lesion Hand/Feet/Scalp/Neck/Ge nitals 0.6-1.0 cm [facility] [employer] Work Phone: Start: 02-11-2017 End: 02-11-2017 Appointment Appointment [facility] [employer] Work Phone: Start: 02-11-2017 End: 02-11-2017 Exc h-f-nk-sp mlg+stiven 0.6-1 Excision Malignant Lesion Hand/Feet/Scalp/Neck/Ge nitals 0.6-1.0 cm [facility] [email or web address] Work Phone: Start: 01-23-2017 End: 01-23-2017 Appointment Appointment [facility] [employer] Work Phone: Start: 2001 Fall risk assessment Falls Risk Asse ssment [facility] Start: 2001 Pneumococcal vaccination PNEUMOCOCCAL VACCINE SERIES (1 of 2 - PCV13) [facility] Work Phone: Start: 2001 Pneumococcal Vaccine : 65+ (1 - PCV) Pneumococcal Vaccine: 65+ (1 - PCV) [facility] Start: 2001 Pneumococcal Vaccine : Age 65+ (1 of 1 - PPSV23) Pneumococcal Vaccine: Age 65+ (1 of 1 - PPSV23) [facility] Start: 2001 PNEUMOCOCCAL: 65+ (1 - PCV) PNEUMOCOCCAL: 65+ (1 - PCV) [facility] Start: 2001 PNEUMOVAX AGE 65 AND OVER WITH 5YR LOOKBACK (#1) PNEUMOVAX AGE 65 AND OVER WITH 5YR LOOKBACK (#1) [facility] Start: 1996 RSV Vaccine (1 - 1-d ose 60+ series) RSV Vaccine (1 - 1-dose 60+ series) [facility] Start: 1986 Administration of herpes zoster vaccine Zoster Vaccines (1 of 2) [facility] Start: 1986 Colonoscopy COLON CANCER S CREENING DISCUSSION [facility] Start: 1986 Protein mass conc COLON CANCER SCREENING DISCUSSION [facility] Work Phone: Start: 1986 SHINGRIX VACCINE (1 of 2) SHINGRIX VACCINE (1 of 2) [facility] Start: 1986 Zoster vaccine hzv l evan for subcutaneous use ZOSTER (SHINGLES) VACCINE (1 of 2) [facility] Start: 11-12-1955 SHINGRIX VACCINE (1 of 2) SHINGRIX VACCINE (1 of 2) [facility] Start: 11-12-1955 Urine microalbumin profile [facility] Start: 11-12-1955 End: 11-12-1955 Third diphtheria, tetanus and acellular pertussis (DTaP) vaccination TDAP (ADULT) [facility] Work Phone: Start: 1954 Anxiety Screening Anxiety Screening [facility] Start: 1954 Depression Screening Depression Scre ening [facility] Start: 1954 Diabetes mellitus screening Diabetes Screening [facility] Start: 1954 End: 1954 Tetanus vaccination TETANUS [facility] Work Phone: Start: 1948 COVID-19 Vaccine (1) COVID-19 Vaccin e (1) [facility] Start: 1948 Depression screening using PHQ-9 (Patient Health Questionnaire 9) score [facility] Start: 1942 PNEUMOCOCCAL: 65+ (1 - PCV) PNEUMOCOCCAL: 65+ (1 - PCV) [facility] Start: 11-12-1939 History and physical examination, annual for health maintenance Wellness Visit [facility] Start: 1936 Lipid panel Lipid Panel [facility] Start: 1936 Medicare Annual Wellness Visit Medicare Annual Wellness Visit (AWV) [facility] Start: 1936 Tetanus vaccination Tetanus: Every 1 0yrs [facility] End: 09-13-2022 Complete blood count with white cell differential, manual CBC and differential Lab Routine Preoperative clearance Spinal stenosis of lumbar region with neurogenic claudication 1 Occurrences starting 09/13/2021 until 09/13/2022 [facility] Work Phone: Comment on above: 1 Occurrences starti ng 09/13/2021 until 09/13/2022 End: 09-13-2022 Comprehensive metabolic 2000 panel - Serum or Plasma Comprehensive Metabolic Panel Lab Routine Spinal stenosis of lumbar region with neurogenic claudication 1 Occurrences starting 09/13/2021 until 09/13/2022 [facility] Comment on above: 1 Occurrences starti ng 09/13/2021 until 09/13/2022 End: 03-20-2023 [address] [facility] Service Area Work Phone: Comment on above: Once for 1 Occurrenc es starting 03/20/2023 until 03/20/2023 LAMINECTOMY DECOMPRESSION LUMBAR SINGLE LEVEL LAMINECTOMY DECOMPRESSION LUMBAR SINGLE LEVEL Spinal stenosis of lumbar region with neurogenic claudication [facility] Main OR End: 09-07-2023 MRI of lumbar spine without contrast MR Lumbar Spine Without Contrast Imaging Routine Spinal stenosis of lumbar region with neurogenic claudication 1 Occurrences starting 09/06/2022 until 09/07/2023 [facility] Work Phone: Comment on above: 1 Occurrences starti ng 09/06/2022 until 09/07/2023 Procedure on tissue specimen Tissue Exam Pathology and Cytology Routine Onychomycosis Ordered: 06/21/2023 [facility] Work Phone: Comment on above: Ordered: 06/21/2023 RELEASE CARPAL TUNNEL RELEASE CA RPAL TUNNEL Left carpal tunnel syndrome [facility] Main OR End: 10-18-2024 US Upper extremity - right US Upper Extremity Non Vascular Limited Right Imaging Routine Mass of right axilla 1 Occurrences starting 10/19/2023 until 10/18/2024 [facility] Work Phone: Comment on above: 1 Occurrences starti ng 10/19/2023 until 10/18/2024 End: 08-27-2022 XR Lumbar Spine 2-3 Views (Standard) XR Lumbar Spine 2-3 Views (Standard) Imaging Routine Pain 1 Occurrences starting 08/27/2021 until 08/27/2022 [facility] Work Phone: Comment on above: 1 Occurrences starti ng 08/27/2021 until 08/27/2022 End: 10-13-2022 XR Lumbar Spine 2-3 Views (Standard) XR Lumbar Spine 2-3 Views (Standard) Imaging Routine Spinal stenosis of lumbar region with neurogenic claudication 1 Occurrences starting 10/14/2021 until 10/13/2022 [facility] Work Phone: Comment on above: 1 Occurrences starti ng 10/14/2021 until 10/13/2022 End: 05-09-2023 XR Lumbar Spine 2-3 Views (Standard) XR Lumbar Spine 2-3 Views (Standard) Imaging Routine Pain 1 Occurrences starting 05/09/2022 until 05/09/2023 [facility] Work Phone: Comment on above: 1 Occurrences starti ng 05/09/2022 until 05/09/2023 End: 09-07-2023 XR Lumbar Spine 2-3 Views (Standard) XR Lumbar Spine 2-3 Views (Standard) Imaging Routine Spinal stenosis of lumbar region with neurogenic claudication 1 Occurrences starting 09/06/2022 until 09/07/2023 [facility] Work Phone: Comment on above: 1 Occurrences starti ng 09/06/2022 until 09/07/2023 XR Lumbar Spine 2-3 Views (Standard) XR Lumbar Spine 2-3 Views (Standard) Imaging Routine Spinal stenosis of lumbar region with neurogenic claudication 09/06/2022 10:16 AM EDT [facility] Immunizations Immunization Date Immunization Notes Care Provider Kimberly lyle 03-20-2023 Moderna COVID-19 vaccine, Fall 2022, 12 yeasrs and older (50mcg/0.5mL) Martin Hinds MD Work Phone: [facility] Work Phone: 02-28-2023 Influenza, Seasonal, Quadrivalent, Adjuvanted Martin Hinds MD Work Phone: [facility] Work Phone: 02-28-2023 influenza virus vacc ine, unspecified formulation Clare Vasquez MD Work Phone: [facility] 02-08-2023 Moderna COVID-19 vaccine, Fall 2022, 12 yeasrs and older (50mcg/0.5mL) Martin Hinds MD Work Phone: [facility] Work Phone: 09-19-2022 tetanus toxoid, redu trish diphtheria toxoid, and acellular pertussis vaccine, adsorbed Martin Hinds MD Work Phone: [facility] Work Phone: 03-21-2022 pneumococcal polysaccharide vaccine, 23 valent Martin Hinds MD Work Phone: [facility] Work Phone: 03-14-2022 Flu vaccine, quadrivalent, high-dose, preservative free, age 65y+ (FLUZONE) Martin Hinds MD Work Phone: [facility] Work Phone: 02-26-2022 influenza virus vacc ine, unspecified formulation Martin Hinds MD Work Phone: [facility] Work Phone: 10-18-2021 Pfizer Hillman Cap SARS-CoV-2 Martin Hinds MD Work Phone: [facility] Work Phone: 03-08-2021 pneumococcal conjuga te vaccine, 13 valent Martin Hinds MD Work Phone: [facility] Work Phone: 03-01-2021 Flu vaccine, quadrivalent, high-dose, preservative free, age 65y+ (FLUZONE) Martin Hinds MD Work Phone: [facility] Work Phone: 03-11-2020 influenza, injectabl e, quadrivalent, preservative free Martin Hinds MD Work Phone: [facility] Work Phone: 02-10-2020 influenza virus vacc ine, unspecified formulation Martin Hinds MD Work Phone: [facility] Work Phone: 10-08-2019 zoster vaccine recombinant Martin Hinds MD Work Phone: [facility] Work Phone: 10-01-2019 zoster vaccine recombinant Martin Hinds MD Work Phone: [facility] Work Phone: 05-28-2019 zoster vaccine recombinant Martin Hinds MD Work Phone: [facility] Work Phone: 03-14-2019 zoster vaccine recombinant Martin Hinds MD Work Phone: [facility] Work Phone: 02-26-2019 influenza virus vacc ine, unspecified formulation Martin Hinds MD Work Phone: [facility] Work Phone: 02-25-2019 influenza, injectabl e, quadrivalent, preservative free Martin Hinds MD Work Phone: [facility] Work Phone: 10-17-2018 pneumococcal conjuga te vaccine, 13 valent Martin Hinds MD Work Phone: [facility] Work Phone: 02-27-2018 influenza, injectabl e, quadrivalent, preservative free Martin Hinds MD Work Phone: [facility] Work Phone: 02-27-2018 influenza virus vacc ine, unspecified formulation Shelli Sebastian [facility] 03-07-2017 influenza, injectabl e, quadrivalent, preservative free Martin Hinds MD Work Phone: [facility] Work Phone: 03-07-2017 influenza virus vacc ine, unspecified formulation Alisa Krueger [facility] 02-26-2017 influenza virus vacc ine, unspecified formulation Martin Hinds MD Work Phone: [facility] Work Phone: 03-09-2016 influenza, injectabl e, quadrivalent, contains preservative Martin Hinds MD Work Phone: [facility] Work Phone: 03-07-2016 influenza virus vacc ine, unspecified formulation Martin Hinds MD Work Phone: [facility] Work Phone: 02-26-2015 influenza virus vacc ine, unspecified formulation Martin Hinds MD Work Phone: [facility] Work Phone: 09-09-2014 pneumococcal conjuga te vaccine, 13 valent Martin Hinds MD Work Phone: [facility] Work Phone: 03-12-2014 influenza virus vacc ine, unspecified formulation Martin Hinds MD Work Phone: [facility] Work Phone: 04-01-2013 influenza, seasonal, injectable Martin Hinds MD Work Phone: [facility] Work Phone: 02-26-2013 influenza virus vacc paradise, unspecified formulation Martin Hinds MD Work Phone: [facility] Work Phone: 02-27-2012 influenza virus vacc paradise, unspecified formulation Martin Hinds MD Work Phone: [facility] Work Phone: 03-23-2011 influenza virus vacc paradise, unspecified formulation Martin Hinds MD Work Phone: [facility] Work Phone: 05-15-2009 novel influenza-H1N1 -09, preservative-free, injectable Martin Hinds MD Work Phone: [facility] Work Phone: 02-26-2009 influenza virus vacc paradise, unspecified formulation Martin Hinds MD Work Phone: [facility] Work Phone: 03-26-2008 pneumococcal polysaccharide vaccine, 23 valent Martin Hinds MD Work Phone: [facility] Work Phone: 03-21-2008 influenza virus vacc paradise, unspecified formulation Martin Hinds MD Work Phone: [facility] Work Phone: Payers Date Payer Category Payer Unknown [id number] 2021 Unknown [id number] 2018 Medicare [id number] 2018 Medicare [id number] 2015 Medicare MEDICARE HUMANA HMO PPO MEDICARE HUMANA HMO PPO xxxxxxxxx 2015-Present xxxxxxxxx [id number] 2015 Medicare [id number] 2000 Unknown [id number] [id number] 2000 Unknown [id number] 95 1936 Unknown [id number] 1936 Unknown [id number] 2.16.840.1.206416.3.579.2.900 1936 Unknown [id number] 2.16.840.1.657134.3.579.2.900 1936 Unknown [id number] 2.16.840.1.432779.3.579.2.900 1936 Unknown [id number] 2.16.840.1.567499.3.579.2.900 1936 Unknown [id number] 2.16.840.1.757091.3.579.2.902 1936 Unknown [id number] 2.16.840.1.891521.3.579.2.106 9 1936 Unknown [id number] 2.16.840.1.206175.3.579.2.106 9 1936 Unknown [id number] 2.16.840.1.440862.3.579.2.106 9 1936 Unknown [id number] 2.16.840.1.739033.3.579.2.106 9 1936 Unknown [id number] 2.16.840.1.122200.3.579.2.106 9 1936 Unknown [id number] 2.16.840.1.698448.3.579.2.106 9 1936 Unknown [id number] 2.16.840.1.937714.3.579.2.124 3 1936 Unknown [id number] 2.16.840.1.206935.3.579.2.124 4 1936 Unknown [id number] 2.16.840.1.336155.3.579.2.124 4 1936 Unknown [id number] 2.16.840.1.998698.3.579.2.903 1936 Unknown [id number] 2.16.840.1.320854.3.579.2.903 1936 Unknown [id number] 2.16.840.1.972074.3.579.2.903 1936 Unknown [id number] 2.16.840.1.048408.3.579.2.903 1936 Unknown [id number] 2.16.840.1.113484.3.579.2.903 1936 Unknown [id number] 2.16.840.1.005172.3.579.2.903 1936 Unknown [id number] [id number] Social History Date Type Detail Facility Start: 05-01-2018 End: 11-24-2020 Tobacco smoking status NHIS Former smoker [facility] Start: 05-29-1950 End: 05-29-1991 History of tobacco use Current smoker [facility] Work Phone: Start: [birth year]-29-1950 End: 05-29-1991 History of tobacco use Cigarette Smoker [facility] Work Phone: Start: 05-01-2018 End: 04-18-2023 Cigarettes smoked current (pack per day) - Reported [facility] Work Phone: Start: 1935 Sex Assigned At Not on file [facility] Work Phone: Start: 04-11-2017 Alcohol Comment occasional use [facility] Start: 11-22-2018 End: 04-18-2023 Alcohol intake Yes [facility] Start: 11-16-2020 Tobacco smoking status NHIS Unknown if ever smoked [facility] Start: 09-03-2021 End: 04-12-2023 Exposure to SARS-CoV-2 (event) Not sure [facility] Start: 11-24-2020 End: 09-13-2021 Tobacco use and exposure Smokeless tobacco non-user [facility] Start: 09-13-2021 End: 02-06-2024 Alcohol intake Current drinker of alcohol (finding) [facility] Start: 08-01-2014 History SDOH Alcohol Comment occasional beer. [facility] National Score (1-10 0), lower number is lower risk 79 [facility] History of tobacco use Passive smoker [facility] Work Phone: Start: 09-14-2023 Gender identity Identifies as male gender (finding) [facility] Start: 09-14-2023 Sexual orientation Heterosexual (finding) [facility] Medical Equipment Procedure Code Equipment Code Equipment Origin al Text Equipment Identifier Dates Sys Card Mntr Rv l Linq Ins - [id number] Start: 07-22-2014 System Xen Porci ne Dermis Glaucoma Injector Sterile Latex Free - [id number] Start: 01-15-2021 System Xen Porci ne Dermis Glaucoma Injector Sterile Latex Free - [id number] Start: 03-26-2021 Hemostat 8 X 12. 5cm X 10mm Surgifoam Gelatin Sponge - [id number] FDA Start: 09-23-2021 Istent Infinite [id number] Start: 04-18-2023 Loop Recorder-Ln q11 Reveal [id number] Start: 07-22-2014 Clinical Notes 11-16-2020 to 02-06-2024 Patient InstructionsClare Vasquez MD - 02/06/2024 3:06 PM EDTPatient Clare Metz MD - 11/01/2023 10:40 AM Marcio Martinez DO - 10/19/2023 2:21 PM EDTAttachments Note Date & Type Note Facility 02-06-2024 Note Date of Procedure 02/06/2024. C/D Ratio Right Eye 0.2. Left Eye 0.2. Disc Right Eye Pallor, Atrophy. Left Eye Pallor. Macula Right Eye Normal. Left Eye RPE mottling. Periphery Right Eye Normal. Left Eye Normal. Notes Attenuation of blood vessels right eye [facility] 02-06-2024 Instructions Clare Vasquez MD - 02/06/2024 3:09 PM EDT Continue: Systane Complete solution instill 1 drop 3 times daily Both Eyes. If you have any questions please contact our office at [phone]. After office hours or on the weekend, please call Dr. Vasquez on his cell phone at [phone]. documented in this encounter [facility] 02-06-2024 Note HNO ID: [id number] Author: CALRE VASQUEZ MD Service: ? Author Type: Physician Type: Progress Notes Filed: 02/06/2024 15:56 Note Text: ASSESSMENT/PLAN: 1. Primary open-angle glaucoma, right eye, severe stage - ICD9: 365.11, 365.73, ICD10: H40.1113 (primary diagnosis) 2. Primary open-angle glaucoma, left eye, moderate stage - ICD9: 365.11, 365.72, ICD10: H40.1122 Status Post i-Stent Infinite Right Eye (04/18/2023) Status Post Xen Gel Left Eye (03/26/2021) Status Post Xen Gel Right Eye (01/15/2021) Continue: Systane Complete solution instill 1 drop 3 times daily Both Eyes. 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 Hypercholesteremia - ICD9: 272.0, ICD10: E78.00 Continue to monitor with primary care physician. 5. Atrial fibrillation, unspecified type (HCC) - ICD9: 427.31, ICD10: I48.91 Continue to monitor with primary care physician/Music Engraver. I have confirmed and edited as necessary the relevant HPI, ophthalmic history, ROS, and the neuro exam findings as obtained by others. I have seen and examined Jaime Melchor. I have discussed the case and the management of this patient's care with the Resident/Fellow, if applicable. I also have reviewed and agree with the assessment and plan as stated above and agree with all of its relevant components. [facility] 02-06-2024 History of Present illness Narrative ASSESSMENT/PLAN: 1. Primary open-angle glaucoma, right eye, severe stage - ICD9: 365.11, 365.73, ICD10: H40.1113 (primary diagnosis) 2. Primary open-angle glaucoma, left eye, moderate stage - ICD9: 365.11, 365.72, ICD10: H40.1122 Status Post i-Stent Infinite Right Eye (04/18/2023) Status Post Xen Gel Left Eye (03/26/2021) Status Post Xen Gel Right Eye (01/15/2021) Continue: Systane Complete solution instill 1 drop 3 times daily Both Eyes. 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 Hypercholesteremia - ICD9: 272.0, ICD10: E78.00 Continue to monitor with primary care physician. 5. Atrial fibrillation, unspecified type (HCC) - ICD9: 427.31, ICD10: I48.91 Continue to monitor with primary care physician/Music Engraver. I have confirmed and edited as necessary the relevant HPI, ophthalmic history, ROS, and the neuro exam findings as obtained by others. I have seen and examined Jaime Melchor. I have discussed the case and the management of this patient's care with the Resident/Fellow, if applicable. I also have reviewed and agree with the assessment and plan as stated above and agree with all of its relevant components. documented in this encounter [facility] 11-01-2023 Instructions Clare Vasquez MD - 11/01/2023 11:16 AM EDT Discontinue: Prednisolone solution Right Eye. Valtrex 1 gm Continue: Systane Complete solution instill 1 drop 3 times daily Both Eyes. If you have any questions please contact our office at [phone]. After office hours or on the weekend, please call Dr. Vasquez on his cell phone at [phone]. documented in this encounter [facility] 11-01-2023 Note Date of Procedure 11/01/2023. Reliability Right Eye Good. Left Eye Good. Interpretation Right Eye Arcuate defect. Left Eye Normal. [facility] 11-01-2023 Note Date of Procedure 11/01/2023. Quality Right Eye Good. Left Eye Good. NFL Interpretation Right Eye Superior loss, Inferior loss. Left Eye Normal. [facility] 11-01-2023 Note HNO ID: [id number] Author: CLARE VASQUEZ MD Service: ? Author Type: Physician Type: Progress Notes Filed: 11/01/2023 11:17 Note Text: ASSESSMENT/PLAN: 1. Primary open-angle glaucoma, right eye, severe stage - ICD9: 365.11, 365.73, ICD10: H40.1113 (primary diagnosis) 2. Primary open-angle glaucoma, left eye, moderate stage - ICD9: 365.11, 365.72, ICD10: H40.1122 3. S/P eye surgery - ICD9: V45.69, ICD10: Z98.890 Status Post i-Stent Infinite Right Eye (04/18/2023) Status Post Xen Gel Left Eye (03/26/2021) Status Post Xen Gel Right Eye (01/15/2021) Discontinue: Prednisolone solution Right Eye. Valtrex 1 gm Continue: Systane Complete solution instill 1 drop 3 times daily Both Eyes. Return in 4 months for dilated fundus exam and fundus photos. 4. 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 Hypercholesteremia - ICD9: 272.0, ICD10: E78.00 Continue to monitor with primary care physician. 6. Atrial fibrillation, unspecified type (HCC) - ICD9: 427.31, ICD10: I48.91 Continue to monitor with primary care physician. I have confirmed and edited as necessary the relevant HPI, ophthalmic history, ROS, and the neuro exam findings as obtained by others. I have seen and examined Jaime Melchor. I have discussed the case and the management of this patient's care with the Resident/Fellow, if applicable. I also have reviewed and agree with the assessment and plan as stated above and agree with all of its relevant components. [facility] 11-01-2023 History of Present illness Narrative ASSESSMENT/PLAN: 1. Primary open-angle glaucoma, right eye, severe stage - ICD9: 365.11, 365.73, ICD10: H40.1113 (primary diagnosis) 2. Primary open-angle glaucoma, left eye, moderate stage - ICD9: 365.11, 365.72, ICD10: H40.1122 3. S/P eye surgery - ICD9: V45.69, ICD10: Z98.890 Status Post i-Stent Infinite Right Eye (04/18/2023) Status Post Xen Gel Left Eye (03/26/2021) Status Post Xen Gel Right Eye (01/15/2021) Discontinue: Prednisolone solution Right Eye. Valtrex 1 gm Continue: Systane Complete solution instill 1 drop 3 times daily Both Eyes. Return in 4 months for dilated fundus exam and fundus photos. 4. 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 Hypercholesteremia - ICD9: 272.0, ICD10: E78.00 Continue to monitor with primary care physician. 6. Atrial fibrillation, unspecified type (HCC) - ICD9: 427.31, ICD10: I48.91 Continue to monitor with primary care physician. I have confirmed and edited as necessary the relevant HPI, ophthalmic history, ROS, and the neuro exam findings as obtained by others. I have seen and examined Jaime Melchor. I have discussed the case and the management of this patient's care with the Resident/Fellow, if applicable. I also have reviewed and agree with the assessment and plan as stated above and agree with all of its relevant components. documented in this encounter [facility] 10-19-2023 Evaluation + Plan note Associated Problem(s): Atrial fibrillation (HCC) Managed by buckshot swage operator Dr. Wright at [facility]. Has pacemaker in place. Maintained on Xarelto and simvastatin. [facility] 10-19-2023 Miscellaneous Notes Associated Problem(s): Atrial fibrillation (HCC) Managed by buckshot swage operator Dr. Wright at [facility]. Has pacemaker in place. Maintained on Xarelto and simvastatin. Associated Problem(s): Bilateral impacted cerumen Cerumen removal performed in clinic, patient tolerated well. Associated Problem(s): Open wound of right hand without foreign body Superficial wound on dorsum of hand with minimal thin skin flap. Healing well. Discussed appropriate wound care. Reviewed precautions. Associated Problem(s): Mass of right axilla Cystic mass palpated in right axilla; most likely simple cyst, occasionally with irritation. Will get ultrasound for assurance that this is truly a cyst. Since this is bothersome to patient, recommended surgery referral. Patient states he would like to follow-up with his surgeon Dr. Friedman at [facility], who has performed excisions for him before. He is to let us know if there are any issues with getting the required care for this. Associated Problem(s): History of skin cancer Previous cryotherapy of lesions on scalp, as well as Mohs surgery of neck in July 2021. I do think he needs follow-up with dermatology for his scalp concerns. Cannot rule out more serious pathology. Patient should still be current with [facility]. Strongly advised patient to get follow-up sooner rather than later. Associated Problem(s): Seborrheic dermatitis of scalp Seems to be the primary etiology of his scalp concerns. Advised use of OTC Selsun Blue shampoo. Other alternatives include T-Parker or T-Gel. Advised patient to schedule with dermatology as well. documented in this encounter [facility] 10-19-2023 Evaluation + Plan note Associated Problem(s): Bilateral impacted cerumen Cerumen removal performed in clinic, patient tolerated well. [facility] 10-19-2023 Evaluation + Plan note Associated Problem(s): Open wound of right hand without foreign body Superficial wound on dorsum of hand with minimal thin skin flap. Healing well. Discussed appropriate wound care. Reviewed precautions. [facility] 10-19-2023 Evaluation + Plan note Associated Problem(s): Mass of right axilla Cystic mass palpated in right axilla; most likely simple cyst, occasionally with irritation. Will get ultrasound for assurance that this is truly a cyst. Since this is bothersome to patient, recommended surgery referral. Patient states he would like to follow-up with his surgeon Dr. Friedman at [facility], who has performed excisions for him before. He is to let us know if there are any issues with getting the required care for this. [facility] 10-19-2023 Evaluation + Plan note Associated Problem(s): History of skin cancer Previous cryotherapy of lesions on scalp, as well as Mohs surgery of neck in July 2021. I do think he needs follow-up with dermatology for his scalp concerns. Cannot rule out more serious pathology. Patient should still be current with [facility]. Strongly advised patient to get follow-up sooner rather than later. [facility] 10-19-2023 Evaluation + Plan note Associated Problem(s): Seborrheic dermatitis of scalp Seems to be the primary etiology of his scalp concerns. Advised use of OTC Selsun Blue shampoo. Other alternatives include T-Parker or T-Gel. Advised patient to schedule with dermatology as well. [facility] 10-19-2023 Note Assessment & Plan Problem List Seborrheic dermatitis of scalp - Primary Seems to be the primary etiology of his scalp concerns. Advised use of OTC Selsun Blue shampoo. Other alternatives include T-Parker or T-Gel. Advised patient to schedule with dermatology as well. History of skin cancer Previous cryotherapy of lesions on scalp, as well as Mohs surgery of neck in July 2021. I do think he needs follow-up with dermatology for his scalp concerns. Cannot rule out more serious pathology. Patient should still be current with [facility]. Strongly advised patient to get follow-up sooner rather than later. Mass of right axilla Cystic mass palpated in right axilla; most likely simple cyst, occasionally with irritation. Will get ultrasound for assurance that this is truly a cyst. Since this is bothersome to patient, recommended surgery referral. Patient states he would like to follow-up with his surgeon Dr. Friedman at [facility], who has performed excisions for him before. He is to let us know if there are any issues with getting the required care for this. Relevant Orders US Upper Extremity Non Vascular Limited Right Open wound of right hand without foreign body Superficial wound on dorsum of hand with minimal thin skin flap. Healing well. Discussed appropriate wound care. Reviewed precautions. Bilateral impacted cerumen Cerumen removal performed in clinic, patient tolerated well. Relevant Orders Ear wax removal Atrial fibrillation (HCC) Managed by buckshot swage operator Dr. Wright at [facility]. Has pacemaker in place. Maintained on Xarelto and simvastatin. For any new medications prescribed today, patient was educated about indications for the medication, how to take the medication, and potential side effects of the medication. My ongoing relationship with Jaime Melchor requires continued responsibility and cognitive effort of being the focal point for all services related to chronic condition(s). Return in about 6 months (around 04/20/2024) for Annual Medicare Wellness Exam. Marcio Jordan DO, MS Family Medicine, Osteopathic Manipulative Medicine, and Hospital Medicine [facility] 10/19/2023 Subjective Chief Complaint Patient presents with Establish Care Ears full, spots on head, lump under Right arm pit HPI After discussing the use of ambient listening and audio recording in generating medical documentation, the patient and verbally consented to use of this technology for today's visit. History of Present Illness The patient presents to the office to establish care. He is accompanied by his . The patient reports the presence of small bumps on his scalp, which are occasionally pruritic. Additionally, he has a tarper-colored spot on his scalp, which has been present for an extended period. He has undergone cryotherapy approximately 2 to 3 times in the past. The patient admits to picking at the spot, which subsequently causes discomfort. He does not currently see a prick stitcher, although he has previously consulted a prick stitcher at [facility] for a neck lesion which was excised, the details of which he can not recall, within the last 3 years. The patient reports a palpable lump under his arm that has been present for approximately one month. He experiences intermittent stinging sensation and occasional tingling. He denies any recent vaccinations. He is scheduled for a carotid ultrasound on 10/29/2023 and a follow-up appointment with Dr. Newton in the subsequent month, vascular surgeon who did a carotid endarterectomy for him. The patient sustained a wound to his right hand on Monday after he hit his hand on his shed outside, which he has been managing with Neosporin and maintaining dryness. He expresses concern about a piece of skin in his hand and is inquiring about the continuation of this treatment. The patient denies any drainage from his ears. He attempts to clean his ears during showers, but struggles to do so. He undergoes annual ear cleaning. Supplemental Information He had back surgery [address] Pablo in [place] and also had carpal tunnel surgery twice by Dr. Pablo. The following portions of the patient's history were reviewed and updated as appropriate: allergies, current medications, past family history, past medical history, past social history, past surgical history and problem list. Patient's Medications New Prescriptions No medications on file Previous Medications ACETAMINOPHEN (TYLENOL ER) 650 MG CR TABLET Take 1 (one) tablet (650 mg total) by mouth Takes two tablets in the morning and two tablets in the evening . ASCORBIC ACID (VITAMIN C ORAL) Take by mouth morning . CALCIUM CARBONATE (OS-LINA) 600 MG CALCIUM (1,500 MG) TABLET Take 1 (one) tablet (600 mg total) by mouth daily morning . MINOCYCLINE (MINOCIN,DYNACIN) 50 MG CAPSULE Take 1 (one) cap (more content not included)... [facility] 10-19-2023 History of Present illness Narrative Images from the original note were not included. Assessment & Plan Problem List Seborrheic dermatitis of scalp - Primary Seems to be the primary etiology of his scalp concerns. Advised use of OTC Selsun Blue shampoo. Other alternatives include T-Parker or T-Gel. Advised patient to schedule with dermatology as well. History of skin cancer Previous cryotherapy of lesions on scalp, as well as Mohs surgery of neck in July 2021. I do think he needs follow-up with dermatology for his scalp concerns. Cannot rule out more serious pathology. Patient should still be current with Vivian Velasquez. Strongly advised patient to get follow-up sooner rather than later. Mass of right axilla Cystic mass palpated in right axilla; most likely simple cyst, occasionally with irritation. Will get ultrasound for assurance that this is truly a cyst. Since this is bothersome to patient, recommended surgery referral. Patient states he would like to follow-up with his surgeon Dr. Friedman at [facility], who has performed excisions for him before. He is to let us know if there are any issues with getting the required care for this. Relevant Orders US Upper Extremity Non Vascular Limited Right Open wound of right hand without foreign body Superficial wound on dorsum of hand with minimal thin skin flap. Healing well. Discussed appropriate wound care. Reviewed precautions. Bilateral impacted cerumen Cerumen removal performed in clinic, patient tolerated well. Relevant Orders Ear wax removal Atrial fibrillation (HCC) Managed by buckshot swage operator Dr. Wright at [facility]. Has pacemaker in place. Maintained on Xarelto and simvastatin. For any new medications prescribed today, patient was educated about indications for the medication, how to take the medication, and potential side effects of the medication. My ongoing relationship with Jaime Melchor requires continued responsibility and cognitive effort of being the focal point for all services related to chronic condition(s). Return in about 6 months (around 04/20/2024) for Annual Medicare Wellness Exam. Marcio Jordan DO, MS Family Medicine, Osteopathic Manipulative Medicine, and Hospital Medicine [facility] 10/19/2023 Subjective Chief Complaint Patient presents with Establish Care Ears full, spots on head, lump under Right arm pit HPI After discussing the use of ambient listening and audio recording in generating medical documentation, the patient and verbally consented to use of this technology for today's visit. History of Present Illness The patient presents to the office to establish care. He is accompanied by his . The patient reports the presence of small bumps on his scalp, which are occasionally pruritic. Additionally, he has a tarper-colored spot on his scalp, which has been present for an extended period. He has undergone cryotherapy approximately 2 to 3 times in the past. The patient admits to picking at the spot, which subsequently causes discomfort. He does not currently see a prick stitcher, although he has previously consulted a prick stitcher at [facility] for a neck lesion which was excised, the details of which he can not recall, within the last 3 years. The patient reports a palpable lump under his arm that has been present for approximately one month. He experiences intermittent stinging sensation and occasional tingling. He denies any recent vaccinations. He is scheduled for a carotid ultrasound on 10/29/2023 and a follow-up appointment with Dr. Newton in the subsequent month, vascular surgeon who did a carotid endarterectomy for him. The patient sustained a wound to his right hand on Monday after he hit his hand on his shed outside, which he has been managing with Neosporin and maintaining dryness. He expresses concern about a piece of skin in his hand and is inquiring about the continuation of this treatment. The patient denies any drainage from his ears. He attempts to clean his ears during showers, but struggles to do so. He undergoes annual ear cleaning. Supplemental Information He had back surgery [address] Pablo in [place] and also had carpal tunnel surgery twice by Dr. Pablo. The following portions of the patient's history were reviewed and updated as appropriate: allergies, current medications, past family history, past medical history, past social history, past surgical history and problem list. Patient's Medications New Prescriptions No medications on file Previous Medications ACETAMINOPHEN (TYLENOL ER) 650 MG CR TABLET Take 1 (one) tablet (650 mg total) by mouth Takes two tablets in the morning and two tablets in the evening . ASCORBIC ACID (VITAMIN C ORAL) Take by mouth morning . CALCIUM CARBONATE (OS-LINA) 600 MG CALCIUM (1,500 MG) TABLET Take 1 (one) tablet (600 mg total) by mouth daily morning . MINOCYCLINE (MINOCIN,DYNACIN) 50 MG CAPSULE Take 1 (one) capsule (50 mg total) by mouth daily morning . OMEPRAZOLE (PRILOSEC) 20 MG CAPSULE Take 1 (one) capsule (20 mg total) by mouth daily morning . RIVAROXABAN (XARELTO) 20 MG TAB Take 1 Unspecified by mouth daily evening . SIMVASTATIN (ZOCOR) 10 MG TABLET Take 1 Unspecified by mouth daily evening . VALACYCLOVIR (VALTREX) 1000 MG TABLET Take 1 (one) tablet (1,000 mg total) by mouth daily morning Reasons: chickenpox. Modified Medications No medications on file Discontinued Medications No medications on file Review of Systems Objective Vitals: 10/19/23 1028 BP: 134/74 BP Location: Left arm Patient Position: Sitting BP Cuff Size: Adult Pulse: 73 Resp: 16 Temp: 97.8 F (36.6 C) TempSrc: Temporal SpO2: 96% Weight: 70.3 kg (155 lb) Height: 5' 7 Physical Exam Vitals and nursing note reviewed. Constitutional: General: He is not in acute distress. Appearance: Normal appearance. He is not ill-appearing, toxic-appearing or diaphoretic. HENT: Head: Normocephalic and atraumatic. Comments: Scalp skin changes as per images below Right Ear: There is impacted cerumen. Left Ear: There is impacted cerumen. Nose: Nose normal. No nasal deformity or signs of injury. Mouth/Throat: Lips: No lesions. Eyes: Extraocular Movements: Extraocular movements intact. Pulmonary: Effort: No tachypnea, bradypnea, accessory muscle usage, respiratory distress or retractions. Skin: Comments: Scalp skin changes as per images below, appears to be seborrheic dermatitis. Also noted scars from prior cryotherapy. Neurological: General: No focal deficit present. Mental Status: He is alert and oriented to person, place, and time. Motor: Motor function is intact. Coordination: Coordination is intact. Comments: Using wheeled walker for ambulation, slightly antalgic gait Psychiatric: Attention and Perception: Attention and perception normal. Mood and Affect: Mood and affect normal. Speech: Speech normal. Behavior: Behavior normal. Thought Content: Thought content normal. Cognition and Memory: Cognition and memory normal. Judgment: Judgment normal. Possible seborrheic dermatitis Scar from prior cryotherapy Cyst in right axilla Osteopathic Medical Exam Results PHQ9: Over the last 2 weeks, how often have you been bothered by any of the following problems? Little interest or pleasure in doing things: Not at all Feeling down, depressed, or hopeless: Not at all PHQ-2 Total Score: 0 Trouble falling or staying asleep, or sleeping too much: Not at all Feeling tired or having little energy: Not at all Poor appetite or overeating: Not at all Feeling bad about yourself - or that you are a failure or have let yourself or your family down: Not at all Trouble concentrating on things, such as reading the newspaper or watching television: Not at all Moving or speaking so slowly that other people could have noticed. Or the opposite - being so fidgety or restless that you have been moving around a lot more than usual: Not at all Thoughts that you would be better off , or of hurting yourself in some way: Not at all PHQ-9 Total Score: 0 If you checked off any problems, how difficult have these problems made it for you to do your work, take care of things at home, or get along with other people?: Not difficult at all MARK-7 (Please note that portions of this note have been completed with a voice recognition software. Efforts were made to correct any errors, but occasionally words are mis-transcribed.) documented in this encounter [facility] 10-19-2023 Instructions Marcio Jordan DO - 10/19/2023 11:37 AM EDT Shampoos to try: Selsun Blue, T/Parker, T/Gel (coal tar shampoo) The following attachments cannot be sent through Care Everywhere.Seborrheic Dermatitis (Amharic)documented in this encounter [facility] 09-13-2023 History of Present illness Narrative Follow-up right great nail fungus, right foot drop Patient is a pleasant 87-year-old male following up with his spouse for nail fungus and foot drop. States that they use the medicine for the last couple months with good compliance. Ultimately stopped it was turning the skin a little bit red and feeling irritated but the nail is looking much better Additionally states that they try to get the custom device for foot drop but was told by the prosthetic provider that they are not yet ready. Instead they bought an [id number] option from [employer] that clips onto his shoes. States that he did try to wear this a bit but has not really committed as he is a little unsure how to use it. Physical Vascular: DP PT pulses are faintly palpable. CFT is fair Derm: Onychomycosis does look much improved no longer flaking or streaking like it was prior. Musculoskeletal: Muscle strength is intact still 3 out of 5 to the dorsiflexors including anterior tibia. Range of motion of the ankle and subtalar that was full and pain-free without any clicking or catching. Assessment and plan: Patient is a pleasant male with mild dropfoot and right great nail onychomycosis. Regarding the nail he can discontinue the Penlac. Regarding his foot drop it still was my preference to get him a custom device but they stated that they would like to try this [id number] option for little bit longer. Therefore he can continue this for 3 months and if he fails to return for a new prescription of a dorsiflexor assisted AFO. documented in this encounter [facility] 07-07-2023 History of Present illness Narrative Nail fungus, dropfoot. Patient is a pleasant 87-year-old male following up today for nail pathology right great toe. States he wants to get this better but nothing to dangerous. Additionally him and his complain about some struggles recently walking. States that in the last year he is had a bit of a dropfoot in his foot is slapping the ground more than it used to. Physical Vascular: DP PT pulses are faintly palpable. CFT is fair no edema. Derm: The nail medial edge remains flaking and lifting otherwise pretty well. No surrounding erythema no streaking no lymphangitis no fluctuance or crepitation no signs of bacterial infection. Neuro: Slightly blunted distally. Musculoskeletal: Right-sided dorsiflexion is intact at 4-5 but weaker than the left side. Otherwise strength is 5 out of 5 and ankle subtalar is full and pain-free without any loss. Pathology: Onychomycosis. Assessment and plan: Patient is a pleasant 87-year-old male with onychomycosis right great toe as seen on pathology and mild dropfoot. For the onychomycotic portion, can start topical Penlac daily. Called into pharmacy. For the foot drop, did get him up prescription for a dorsiflexor assisted AFO to assist with gait. Can follow-up in 3 months to reevaluate all documented in this encounter [facility] 07-03-2023 Instructions Clare Vasquez MD - 07/03/2023 11:44 AM EST Current Ophthalmic Meds prednisoLONE acetate (PRED FORTE) 1 % ophthalmic suspension Use 1 Drop in the right eye three times a day. The nature of glaucoma was discussed, with emphasis on the non-reversible damage to the optic nerve. Treatment options and the importance of regular examinations and testing were covered in detail, as well as the consequences of non-compliance. The patient was given the opportunity to ask questions. If you have any questions please contact our office at [phone]. After office hours or on the weekend, please call Dr. Vasquez on his cell phone at [phone]. documented in this encounter [facility] 07-03-2023 Note HNO ID: [id number] Author: CLARE VASQUEZ MD Service: ? Author Type: Physician Type: Progress Notes Filed: 07/03/2023 11:44 Note Text: ASSESSMENT/PLAN: 1. Primary open-angle glaucoma, right eye, severe stage - ICD9: 365.11, 365.73, ICD10: H40.1113 (primary diagnosis) 2. Primary open-angle glaucoma, left eye, moderate stage - ICD9: 365.11, 365.72, ICD10: H40.1122 3. S/P eye surgery - ICD9: V45.69, ICD10: Z98.890 - Continue Current Ophthalmic Meds prednisoLONE acetate (PRED FORTE) 1 % ophthalmic suspension Use 1 Drop in the right eye two times a day. Continue: Systane Complete solution instill 1 drop 3 times daily Both Eyes. 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 Pseudophakia of both eyes - ICD9: V43.1, ICD10: Z96.1 - Intraocular lens in good position both eyes 4. Hypercholesteremia - ICD9: 272.0, ICD10: E78.00 5. Atrial fibrillation, unspecified type (HCC) - ICD9: 427.31, ICD10: I48.91 - Continue to monitor with primary care physician. I have confirmed and edited as necessary the relevant ophthalmic history, review of systems, surgical history, and ophthalmological examination findings as obtained by the ophthalmic technical staff. I have seen and examined Jaime eMlchor. I have discussed the examination findings, diagnosis, and treatment options with Jaime Melchor and/or his family. I have also reviewed and agree with the assessment and plan as stated above and agree with all its relevant components. I gave the patient the opportunity to ask questions about the findings, diagnosis, and treatment options. Clare Vasquez MD [facility] 07-03-2023 History of Present illness Narrative ASSESSMENT/PLAN: 1. Primary open-angle glaucoma, right eye, severe stage - ICD9: 365.11, 365.73, ICD10: H40.1113 (primary diagnosis) 2. Primary open-angle glaucoma, left eye, moderate stage - ICD9: 365.11, 365.72, ICD10: H40.1122 3. S/P eye surgery - ICD9: V45.69, ICD10: Z98.890 - Continue Current Ophthalmic Meds prednisoLONE acetate (PRED FORTE) 1 % ophthalmic suspension Use 1 Drop in the right eye two times a day. Continue: Systane Complete solution instill 1 drop 3 times daily Both Eyes. 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 Pseudophakia of both eyes - ICD9: V43.1, ICD10: Z96.1 - Intraocular lens in good position both eyes 4. Hypercholesteremia - ICD9: 272.0, ICD10: E78.00 5. Atrial fibrillation, unspecified type (HCC) - ICD9: 427.31, ICD10: I48.91 - Continue to monitor with primary care physician. I have confirmed and edited as necessary the relevant ophthalmic history, review of systems, surgical history, and ophthalmological examination findings as obtained by the ophthalmic technical staff. I have seen and examined Jaime Melchor. I have discussed the examination findings, diagnosis, and treatment options with Jaime Melchor and/or his family. I have also reviewed and agree with the assessment and plan as stated above and agree with all its relevant components. I gave the patient the opportunity to ask questions about the findings, diagnosis, and treatment options. Clare Vasquez MD documented in this encounter [facility] 06-21-2023 History of Present illness Narrative HPI Chief Complaint Patient presents with Nail Care Patient presents for possible fungus on greater right toe. Patient is unsure when spot appeared, but thinks spot is traveling down toe. Patient is a pleasant 87-year-old male who comes in today with his for concern of right great nail fungus. She states that she spotted a new large white spot on the top of his great toenail which she believes is a bit newer. She states that it can came out of nowhere and is really not sure what it is or what to do but was concerned as it is never looked this way. Denies any trauma denies any pain. Past Medical History: Diagnosis Date Arthritis Atrial fibrillation (HCC) Cancer (HCC) bladder Cataract GERD (gastroesophageal reflux disease) Glaucoma HL (hearing loss) hearing aids Hyperlipidemia Rosacea Past Surgical History: Procedure Laterality Date BACK SURGERY 1992 CARPAL TUNNEL RELEASE Left CARPAL TUNNEL RELEASE OPEN Left 04/28/2022 Procedure: LEFT CARPAL TUNNEL RELEASE; Surgeon: Roxy Pablo MD; Location: Main OR; Service: Orthopedic CATARACT EXTRACTION, BILATERAL CERVICAL DISC SURGERY 1990 ENDARTERECTOMY CAROTID Left 7 yrs ago EYE SURGERY stents LAMINECTOMY DECOMP LUMBAR SINGLE LEVEL Bilateral 09/23/2021 Procedure: LAMINECTOMY DECOMPRESSION L2- 5; Surgeon: Roxy Pablo MD; Location: Main OR; Service: Orthopedic NECK SURGERY right side NECK SURGERY left side - artery PROSTHODONTIC PROCEDURE upper and lower TONSILLECTOMY age 16 Social History Socioeconomic History Marital status: Tobacco Use Smoking status: Former Types: Cigarettes Quit date: 1991 Years since quittin.0 Smokeless tobacco: Never Vaping Use Vaping Use: Never used Substance and Sexual Activity Alcohol use: Yes Alcohol/week: 3.0 standard drinks of alcohol Types: 3 Cans of beer per week Drug use: Never Review of Systems Physical Exam Patient is AOx3. Linear and appropriate humor and thought process. Vascular: DP PT pulses are easily palpable 2-4. CFT is normal no edema. Derm: No erythema no streaking no lymphangitis. Right great nail does have a 4 mm harrison of soft nail though no appearance no streaking no erythema no signs of bacterial infection. Not frankly mycotic other than the small and central lesion. Musculoskeletal: Can easily wiggle toes that any clicking or catching. Ankle subtalar is full and pain-free. Impression/Plan Problem List Items Addressed This Visit None Visit Diagnoses Onychomycosis - Primary Relevant Orders Tissue Exam Patient is a pleasant 87-year-old male with concern for acute right great nail onychomycosis versus onychodystrophy. To better work differential, did add a PAS and GMS. This was done by hand with curette. Follow-up in 2 weeks to review pathology. Low medical complexity decision making based on differential. documented in this encounter [facility] 05-26-2023 Note HNO ID: [id number] Author: Clare Vasquez MD Service: ? Author Type: Physician Type: Progress Notes Filed: 05/26/2023 11:18 AM Note Text: ASSESSMENT/PLAN: 1. Primary open-angle glaucoma, right eye, severe stage - ICD9: 365.11, 365.73, ICD10: H40.1113 (primary diagnosis) 2. Primary open-angle glaucoma, left eye, moderate stage - ICD9: 365.11, 365.72, ICD10: H40.1122 3. S/P eye surgery - ICD9: V45.69, ICD10: Z98.890 Status Post i-Stent Infinite Right Eye (04/18/2023) Status Post Xen Gel Left Eye (03/26/2021) Current Ophthalmic Meds prednisoLONE acetate (PRED FORTE) 1 % ophthalmic suspension Use 1 Drop in the right eye three times a day. Continue: Systane Complete solution instill 1 drop 3 times daily Both Eyes. Clare Vasquez MD I have confirmed and edited as necessary the relevant ophthalmic history, review of systems, surgical history, and ophthalmological examination findings as obtained by the ophthalmic technical staff. I have seen and examined Jaime Melchor. I have discussed the examination findings, diagnosis, and treatment options with Jaime Melchor and/or his family. I have also reviewed and agree with the assessment and plan as stated above and agree with all its relevant components. I gave the patient the opportunity to ask questions about the findings, diagnosis, and treatment options. [facility] 04-26-2023 Note HNO ID: [id number] Author: Clare Vasquez MD Service: ? Author Type: Physician Type: Progress Notes Filed: 04/26/2023 11:06 AM Note Text: ASSESSMENT/PLAN: 1. S/P eye surgery - ICD9: V45.69, ICD10: Z98.890 (primary diagnosis) - Status Post I-Stent infinite right eye 04-18-2023 2. Primary open-angle glaucoma, right eye, severe stage - ICD9: 365.11, 365.73, ICD10: H40.1113 The nature of glaucoma was discussed, with emphasis on the non-reversible damage to the optic nerve. Treatment options and the importance of regular examinations and testing were covered in detail, as well as the consequences of non-compliance. The patient was given the opportunity to ask questions. Use eye medications as directed: Current Ophthalmic Meds keTORolac (ACULAR) 0.5 % ophthalmic solution Use 1 Drop in the right eye three times a day. NEOMYCIN 3.5 MG/G-POLYMYXIN B 10,000 UNIT/G-DEXAMETH 0.1 % EYE OINT Use at bedtime right eye prednisoLONE acetate (PRED FORTE) 1 % ophthalmic suspension Use 1 Drop in the right eye three times a day. Systane Complete Artificial Tears - Use 1 Drop into both eyes three times a day. 3. Primary open-angle glaucoma, left eye, moderate stage - ICD9: 365.11, 365.72, ICD10: H40.1122 Status Post Xen Gel Left Eye (03/26/2021) The nature of glaucoma was discussed, with emphasis on the non-reversible damage to the optic nerve. Treatment options and the importance of regular examinations and testing were covered in detail, as well as the consequences of non-compliance. The patient was given the opportunity to ask questions. 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 I have seen and examined Jaime Melchor. I have discussed the examination findings, diagnosis, and treatment options with Jaime Melchor and/or his family. I have also reviewed and agree with the assessment and plan as stated above and agree with all its relevant components. I gave the patient the opportunity to ask questions about the findings, diagnosis, and treatment options. Clare Vasquez MD [facility] 04-19-2023 Note HNO ID: [id number] Author: Clare Vasquez MD Service: ? Author Type: Physician Type: Progress Notes Filed: 04/19/2023 8:52 AM Note Text: ASSESSMENT/PLAN: 1. S/P eye surgery - ICD9: V45.69, ICD10: Z98.890 (primary diagnosis) - Status Post I-Stent infinite right eye 04-18-2023 2. Primary open-angle glaucoma, right eye, severe stage - ICD9: 365.11, 365.73, ICD10: H40.1113 The nature of glaucoma was discussed, with emphasis on the non-reversible damage to the optic nerve. Treatment options and the importance of regular examinations and testing were covered in detail, as well as the consequences of non-compliance. The patient was given the opportunity to ask questions. -Stop: Latanoprost drops. Use eye medications as directed: Current Ophthalmic Meds moxifloxacin (VIGAMOX) 0.5 % ophthalmic solution Use 1 Drop in the right eye four times daily for 7 days. prednisoLONE acetate (PRED FORTE) 1 % ophthalmic suspension Use 1 drop four times a day for 2 weeks then twice a day until 05-23-2023 then stop. keTORolac (ACULAR) 0.5 % ophthalmic solution Use 1 Drop in the right eye four times daily for 2 weeks then twice a day until 05-23-2023 then stop. [id number]-[id number]-[id number] 3.5 MG/ML-10,000 UNIT/ML-0.1% EYE DROPS Use 1 Drop in the right eye daily at bedtime. Continue: Systane Complete Artificial Tears - Use 1 Drop into both eyes three times a day. 3. Primary open-angle glaucoma, left eye, moderate stage - ICD9: 365.11, 365.72, ICD10: H40.1122 Status Post Xen Gel Left Eye (03/26/2021) The nature of glaucoma was discussed, with emphasis on the non-reversible damage to the optic nerve. Treatment options and the importance of regular examinations and testing were covered in detail, as well as the consequences of non-compliance. The patient was given the opportunity to ask questions. 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 I have seen and examined Jaime Melchor. I have discussed the examination findings, diagnosis, and treatment options with Jaime Melchor and/or his family. I have also reviewed and agree with the assessment and plan as stated above and agree with all its relevant components. I gave the patient the opportunity to ask questions about the findings, diagnosis, and treatment options. Clare Vasquez MD [facility] 04-19-2023 History of Present illness Narrative ASSESSMENT/PLAN: 1. S/P eye surgery - ICD9: V45.69, ICD10: Z98.890 (primary diagnosis) - Status Post I-Stent infinite right eye 04-18-2023 2. Primary open-angle glaucoma, right eye, severe stage - ICD9: 365.11, 365.73, ICD10: H40.1113 The nature of glaucoma was discussed, with emphasis on the non-reversible damage to the optic nerve. Treatment options and the importance of regular examinations and testing were covered in detail, as well as the consequences of non-compliance. The patient was given the opportunity to ask questions. -Stop: Latanoprost drops. Use eye medications as directed: Current Ophthalmic Meds moxifloxacin (VIGAMOX) 0.5 % ophthalmic solution Use 1 Drop in the right eye four times daily for 7 days. prednisoLONE acetate (PRED FORTE) 1 % ophthalmic suspension Use 1 drop four times a day for 2 weeks then twice a day until 05-23-2023 then stop. keTORolac (ACULAR) 0.5 % ophthalmic solution Use 1 Drop in the right eye four times daily for 2 weeks then twice a day until 05-23-2023 then stop. [id number]-[id number]-[id number] 3.5 MG/ML-10,000 UNIT/ML-0.1% EYE DROPS Use 1 Drop in the right eye daily at bedtime. Continue: Systane Complete Artificial Tears - Use 1 Drop into both eyes three times a day. 3. Primary open-angle glaucoma, left eye, moderate stage - ICD9: 365.11, 365.72, ICD10: H40.1122 Status Post Xen Gel Left Eye (03/26/2021) The nature of glaucoma was discussed, with emphasis on the non-reversible damage to the optic nerve. Treatment options and the importance of regular examinations and testing were covered in detail, as well as the consequences of non-compliance. The patient was given the opportunity to ask questions. 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 I have seen and examined Jaime Melchor. I have discussed the examination findings, diagnosis, and treatment options with Jaime Melchor and/or his family. I have also reviewed and agree with the assessment and plan as stated above and agree with all its relevant components. I gave the patient the opportunity to ask questions about the findings, diagnosis, and treatment options. Clare Vasquez MD documented in this encounter [facility] 04-19-2023 Instructions Clare Vasquez MD - 04/19/2023 8:39 AM EST -Stop: Latanoprost drops. Use eye medications as directed: Current Ophthalmic Meds moxifloxacin (VIGAMOX) 0.5 % ophthalmic solution Use 1 Drop in the right eye four times daily for 7 days. prednisoLONE acetate (PRED FORTE) 1 % ophthalmic suspension Use 1 drop four times a day for 2 weeks then twice a day until 05-23-2023 then stop. keTORolac (ACULAR) 0.5 % ophthalmic solution Use 1 Drop in the right eye four times daily for 2 weeks then twice a day until 05-23-2023 then stop. XMCBIYQL-HBBLPFTHX-[id number] 3.5 MG/ML-10,000 UNIT/ML-0.1% EYE DROPS Use 1 Drop in the right eye daily at bedtime. Systane Complete Artificial Tears - Use 1 Drop into both eyes three times a day. If you have any questions please contact our office at [phone]. After office hours or on the weekend, please call Dr. Vasquez on his cell phone at [phone]. documented in this encounter [facility] 04-12-2023 History of Present illness Narrative Subjective Patient ID: Jaime Rehman is a 87 y.o. male who presents for Follow-up (NEW PATIENT VISIT). Here to establish FEELS FINE Review of Systems Constitutional: Negative. Negative for chills and fever. HENT: Negative. Negative for congestion. Eyes: Negative. Negative for discharge. Respiratory: Negative. Negative for cough, shortness of breath and wheezing. Cardiovascular: Negative. Negative for chest pain, palpitations and leg swelling. Gastrointestinal: Negative. Negative for abdominal distention, abdominal pain, constipation, diarrhea, nausea and vomiting. Endocrine: Negative. Genitourinary: Negative. Negative for dysuria and urgency. Musculoskeletal: Negative. Negative for back pain, joint swelling and neck stiffness. Skin: Negative. Negative for rash. Allergic/Immunologic: Negative. Negative for immunocompromised state. Neurological: Negative. Negative for light-headedness, numbness and headaches. Hematological: Negative. Negative for adenopathy. Psychiatric/Behavioral: Negative. Negative for agitation, behavioral problems and confusion. All other systems reviewed and are negative. Objective Physical Exam Vitals reviewed. Constitutional: General: He is not in acute distress. Appearance: Normal appearance. HENT: Head: Normocephalic and atraumatic. Nose: Nose normal. Eyes: Conjunctiva/sclera: Conjunctivae normal. Pupils: Pupils are equal, round, and reactive to light. Neck: Vascular: No carotid bruit. Cardiovascular: Rate and Rhythm: Normal rate and regular rhythm. Pulses: Normal pulses. Heart sounds: No gallop. Pulmonary: Effort: Pulmonary effort is normal. No respiratory distress. Breath sounds: Normal breath sounds. No wheezing. Abdominal: General: Bowel sounds are normal. Palpations: Abdomen is soft. Tenderness: There is no abdominal tenderness. Musculoskeletal: General: Normal range of motion. Cervical back: Normal range of motion. No rigidity. Lymphadenopathy: Cervical: No cervical adenopathy. Skin: General: Skin is warm. Findings: Lesion (4 AK LESIONS OF SCAL CLOSE TO EACH OTHER CRYO DONE WITH LIQUID N) present. No rash. Neurological: General: No focal deficit present. Mental Status: He is alert and oriented to person, place, and time. Psychiatric: Mood and Affect: Mood normal. Behavior: Behavior normal. BP 136/70 (BP Location: Right arm, Patient Position: Sitting) Pulse 90 Ht 1.702 m (5' 7 ) Wt 73.5 kg (162 lb) BMI 25.37 kg/m No results found for: CBCDIF , CMPLAS , PSA , LASA , HGBA1C Assessment/Plan Problem List Items Addressed This Visit Atrial fibrillation (CMS/HCC) Bladder cancer (CMS/HCC) Carotid arterial disease (CMS/HCC) Hypertension - Primary Other Visit Diagnoses Actinic keratosis MONITOR BP GOAL BP LOWER THAN 130/80 LOW SALT EXERCISE DAILY HAS BW IN [place] 2 TIMES A YEAR SEES VASCULAR SURGEON REGULARLY Labs reviewed with pt MDM 1) COMPLEXITY: MORE THAN 1 STABLE CHRONIC CONDITION ADDRESSED 2)DATA: TESTS INTERPRETED AND OR ORDERED, TOOK INDEPENDENT HISTORY OR RECORDS REVIEWED 3)RISK: MODERATE RISK DUE TO NATURE OF MEDICAL CONDITIONS/COMORBIDITY OR MEDICATIONS ORDERED OR SURGICAL OR PROCEDURE REFERRAL, . FU 3 WEEKS FOR WELLNESS EXAM documented in this encounter [facility] Work Phone: 04-12-2023 Note HNO ID: [id number] Author: Clare Vasquez MD Service: ? Author Type: Physician Type: Progress Notes Filed: 04/12/2023 1:24 PM Note Text: ASSESSMENT/PLAN: 1. Primary open-angle glaucoma, right eye, severe stage - ICD9: 365.11, 365.73, ICD10: H40.1113 (primary diagnosis) - OCT OPTIC NERVE CIRRUS OU (BOTH EYES) REFRACTORY GLAUCOMA RIGHT EYE. Target Intraocular pressure: 12 mmHg Due to the following reason/s: Intraocular pressure not at desired target pressure with topical medications An inability to comply with Glaucoma eye drop requirements Patient reported that the side effects of the medications are negatively impacting the patient's quality of life Failed medical management Status Post Xen Gel Right Eye (01/15/2021) Status Post Bleb Needling Right Eye (06/11/2021) Plan i-Stent Infinite Right Eye on 04/18/2023 at [facility]. Continue: Latanoprost solution instill 1 drop at bedtime Right Eye. PHYSICAL EXAM: Vital Signs: Blood pressure 130/66, pulse 76. Respiratory: Normal breath sounds, no wheezing. CARD: Normal heart sounds 1 AND 2, normal sinus rhythm. Patient was cleared by Dr. Shay from a medical standpoint to proceed with surgery. 2. 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 Hypercholesteremia - ICD9: 272.0, ICD10: E78.00 Continue to monitor with primary care physician. 5. Atrial fibrillation, unspecified type (HCC) - ICD9: 427.31, ICD10: I48.91 Continue to monitor with primary care physician. Clare Vasquez MD I have confirmed and edited as necessary the relevant ophthalmic history, review of systems, surgical history, and ophthalmological examination findings as obtained by the ophthalmic technical staff. I have seen and examined Jaime Melchor. I have discussed the examination findings, diagnosis, and treatment options with Jaime Melchor and/or his family. I have also reviewed and agree with the assessment and plan as stated above and agree with all its relevant components. I gave the patient the opportunity to ask questions about the findings, diagnosis, and treatment options. [facility] 03-13-2023 Instructions Clare Vasquez MD - 03/13/2023 11:55 AM EDT Start: Latanoprost solution instill 1 drop at bedtime Right Eye. If you have any questions please contact our office at [phone]. After office hours or on the weekend, please call Dr. Vasquez on his cell phone at [phone]. documented in this encounter [facility] 03-13-2023 Note HNO ID: [id number] Author: Clare Vasquez MD Service: ? Author Type: Physician Type: Progress Notes Filed: 03/13/2023 11:56 AM Note Text: ASSESSMENT/PLAN: 1. Primary open-angle glaucoma, right eye, severe stage - ICD9: 365.11, 365.73, ICD10: H40.1113 (primary diagnosis) - OCT OPTIC NERVE CIRRUS OU (BOTH EYES) REFRACTORY GLAUCOMA RIGHT EYE. Target Intraocular pressure: 12 mmHg Due to the following reason/s: Intraocular pressure not at desired target pressure with topical medications An inability to comply with Glaucoma eye drop requirements Patient reported that the side effects of the medications are negatively impacting the patient's quality of life Failed medical management Status Post Xen Gel Right Eye (01/15/2021) Status Post Bleb Needling Right Eye (06/11/2021) Plan i-Stent Infinite Right Eye on 04/18/2023 at [facility]. Start: Latanoprost solution instill 1 drop at bedtime Right Eye. 2. 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 Hypercholesteremia - ICD9: 272.0, ICD10: E78.00 Continue to monitor with primary care physician. 5. Atrial fibrillation, unspecified type (HCC) - ICD9: 427.31, ICD10: I48.91 Continue to monitor with primary care physician. Clare Vasquez MD I have confirmed and edited as necessary the relevant ophthalmic history, review of systems, surgical history, and ophthalmological examination findings as obtained by the ophthalmic technical staff. I have seen and examined Jaime Melchor. I have discussed the examination findings, diagnosis, and treatment options with Jaime Melchor and/or his family. I have also reviewed and agree with the assessment and plan as stated above and agree with all its relevant components. I gave the patient the opportunity to ask questions about the findings, diagnosis, and treatment options. [facility] 03-13-2023 History of Present illness Narrative ASSESSMENT/PLAN: 1. Primary open-angle glaucoma, right eye, severe stage - ICD9: 365.11, 365.73, ICD10: H40.1113 (primary diagnosis) - OCT OPTIC NERVE CIRRUS OU (BOTH EYES) REFRACTORY GLAUCOMA RIGHT EYE. Target Intraocular pressure: 12 mmHg Due to the following reason/s: Intraocular pressure not at desired target pressure with topical medications An inability to comply with Glaucoma eye drop requirements Patient reported that the side effects of the medications are negatively impacting the patient's quality of life Failed medical management Status Post Xen Gel Right Eye (01/15/2021) Status Post Bleb Needling Right Eye (06/11/2021) Plan i-Stent Infinite Right Eye on 04/18/2023 at [facility]. Start: Latanoprost solution instill 1 drop at bedtime Right Eye. 2. 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 Hypercholesteremia - ICD9: 272.0, ICD10: E78.00 Continue to monitor with primary care physician. 5. Atrial fibrillation, unspecified type (HCC) - ICD9: 427.31, ICD10: I48.91 Continue to monitor with primary care physician. Clare Vasquez MD I have confirmed and edited as necessary the relevant ophthalmic history, review of systems, surgical history, and ophthalmological examination findings as obtained by the ophthalmic technical staff. I have seen and examined Jaime Melchor. I have discussed the examination findings, diagnosis, and treatment options with Jaime Abiodun Melchor and/or his family. I have also reviewed and agree with the assessment and plan as stated above and agree with all its relevant components. I gave the patient the opportunity to ask questions about the findings, diagnosis, and treatment options. documented in this encounter [facility] 09-09-2022 History of Present illness Narrative New updated authorization for care, follow up visits/imaging, procedurs if warranted. REF# [id number] 09-09-22 to 03-26-23, first appointment date of 09-27-22 per Danielle Trujillo in chart. documented in this encounter [facility] 09-06-2022 History of Present illness Narrative [place] approved the MRI Lumbar with auth# [id number] from 03-29-22 to 09-26-22. documented in this encounter [facility] 09-06-2022 History of Present illness Narrative [facility] [address] ([address]) [facility] [address] [facility] [address] Jaime Melchor is a 86 y.o. male being seen today, 09/06/22, No chief complaint on file. [chief complaint] difficulty to stand or walk for any prolonged period HPI Dictation: This man status post decompressive laminectomy 2-5 for spinal stenosis is almost a year postop and still having difficulty with any prolonged standing or walk [hpi] x-rays showing evidence of his previous decompression and multilevel degenerative disc Physical Exam Dictation: [PE] he has no radiculopathy restricted range of motion in all planes Assessment and Plan Dictation: [AP] plan repeat MRI to evaluate for any persistent or additional levels of spinal stenosis I have reviewed all relevant histories, medications, allergies, and problem list items with Jaime Melchor during this visit. Review of Systems Constitutional: Negative for chills and fever. HENT: Negative for congestion. Respiratory: Negative for shortness of breath. Cardiovascular: Negative for chest pain. Gastrointestinal: Negative for diarrhea, nausea and vomiting. Neurological: Negative for headaches. Psychiatric/Behavioral: Negative for behavioral problems. There were no vitals taken for this visit. Imaging: No results found. 1. Spinal stenosis of lumbar region with neurogenic claudication MR Lumbar Spine Without Contrast Return for post mri. Roxy Pablo MD documented in this encounter [facility] 05-24-2022 History of Present illness Narrative [facility] [address] ([address]) [facility] [address] [facility] [address] Jaime Melchor is a 86 y.o. male being seen today, 05/24/22, Chief Complaint Patient presents with Post-op LT CTR SX:04/28/22 [chief complaint] status post revision left carpal tunnel HPI Dictation: Patient returns today indicating that his swelling has improved pain is improved as well numbing tingling less significant [hpi] Physical Exam Dictation: [PE] wound healed nicely Assessment and Plan Dictation: [AP] use hand as pain allows return. I have reviewed all relevant histories, medications, allergies, and problem list items with Jaime Abiodun Ruiz during this visit. Review of Systems Constitutional: Negative for chills and fever. HENT: Negative for congestion. Respiratory: Negative for shortness of breath. Cardiovascular: Negative for chest pain. Gastrointestinal: Negative for diarrhea, nausea and vomiting. Neurological: Negative for headaches. Psychiatric/Behavioral: Negative for behavioral problems. Ht 5' 7 Wt 72.1 kg (159 lb) BMI 24.90 kg/m Imaging: No results found. 1. Left carpal tunnel syndrome Return if symptoms worsen or fail to improve. Roxy Pablo MD documented in this encounter [facility] 05-10-2022 History of Present illness Narrative [facility] [address] ([address]) [facility] [address] [facility] [address] Jaime Melchor is a 86 y.o. male being seen today, 05/10/22, Chief Complaint Patient presents with Lower Back - Pain Post-op LT CTR SX:04/28/22 [chief complaint] status post revision left carpal tunnel HPI Dictation: Man seen first postop visit he has no new complaints cannot tell yet if this was helpful or not [hpi] Physical Exam Dictation: [PE] wounds healing nicely sutures removed Assessment and Plan Dictation: [AP] return in 2 weeks for recheck use hand as pain allows I have reviewed all relevant histories, medications, allergies, and problem list items with Jaime Melchor during this visit. Review of Systems Constitutional: Negative for chills and fever. HENT: Negative for congestion. Respiratory: Negative for shortness of breath. Cardiovascular: Negative for chest pain. Gastrointestinal: Negative for diarrhea, nausea and vomiting. Neurological: Negative for headaches. Psychiatric/Behavioral: Negative for behavioral problems. Ht 5' 7 Wt 72.1 kg (159 lb) BMI 24.90 kg/m Imaging: No results found. 1. Left carpal tunnel syndrome Return in about 2 weeks (around 05/24/2022). Roxy Pablo MD documented in this encounter [facility] 04-26-2022 History of Present illness Narrative [facility] [address] ([address]) [facility] [address] [facility] [address] Jaime Melchor is a 86 y.o. male being seen today, 04/26/22, Chief Complaint Patient presents with Pre-op Exam [chief complaint] pain numbness tingling left hand HPI Dictation: This patient has previous carpal tunnel surgery which was unsuccessful he is severely symptomatic and is asking whether further surgery again will be an option we discussed at last visit that reexploration of the carpal canal may have unpredictable outcome and I cannot guarantee responsibility feels the symptoms are to the point where living with it is not reasonable [hpi] Physical Exam Dictation: [PE] does seem to have a positive Phalen's at the left wrist Assessment and Plan Dictation: [AP] plan schedule tomorrow for carpal tunnel redo left I have reviewed all relevant histories, medications, allergies, and problem list items with Jaime Melchor during this visit. Review of Systems Constitutional: Negative for chills and fever. HENT: Negative for congestion. Respiratory: Negative for shortness of breath. Cardiovascular: Negative for chest pain. Gastrointestinal: Negative for diarrhea, nausea and vomiting. Neurological: Negative for headaches. Psychiatric/Behavioral: Negative for behavioral problems. Ht 5' 7 Wt 75.3 kg (166 lb) BMI 26.00 kg/m Imaging: No results found. 1. Left carpal tunnel syndrome Return for postop evaluation after scheduled surgery. Roxy Pablo MD documented in this encounter [facility] 04-19-2022 Instructions Nasreen Jimenez, OD - 04/19/2022 11:35 AM EST ASSESSMENT/PLAN: 1. Primary open-angle glaucoma, left eye, moderate stage - ICD9: 365.11, 365.72, ICD10: H40.1122 (primary diagnosis) 2. Primary open-angle glaucoma, right eye, severe stage - ICD9: 365.11, 365.73, ICD10: H40.1113 Status Post Xen Gel Right Eye (01/15/2021) Status Post Xen Gel Left Eye (03/26/2021) Status Post Bleb Needling Right Eye (06/11/2021) Continue: Systane Hydration (PF) solution instill 1 drop 3 times daily Both Eyes. Refresh PM Ointment at bedtime into Right Eye. 3. 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 Recommended follow up in 6 months. documented in this encounter [facility] 04-19-2022 History of Present illness Narrative ASSESSMENT/PLAN: 1. Primary open-angle glaucoma, left eye, moderate stage - ICD9: 365.11, 365.72, ICD10: H40.1122 (primary diagnosis) 2. Primary open-angle glaucoma, right eye, severe stage - ICD9: 365.11, 365.73, ICD10: H40.1113 Status Post Xen Gel Right Eye (01/15/2021) Status Post Xen Gel Left Eye (03/26/2021) Status Post Bleb Needling Right Eye (06/11/2021) Continue: Systane Hydration (PF) solution instill 1 drop 3 times daily Both Eyes. Refresh PM Ointment at bedtime into Right Eye. 3. 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 Recommended follow up in 6 months. Nasreen Jimenez, MERVIN documented in this encounter [facility] 03-31-2022 History of Present illness Narrative Elsa is nurse at [employer] phone# [phone] #3 for nurse and fax# [phone] or [phone] for any questions concerning Cardiac issues. documented in this encounter [facility] 03-31-2022 History of Present illness Narrative Per Elsa patient is able to hold his blood thinner for 3 days prior to left carpal tunnel release surgery that is scheduled for 04-28-22. Patient and (Noy) have been informed. documented in this encounter [facility] 03-31-2022 History of Present illness Narrative [facility]. REF# [id number] scanned in Media tab in patients chart. documented in this encounter [facility] 01-24-2022 History of Present illness Narrative [facility] [address] (11) [facility] [address] [facility] [id number] Jaime Melchor is a 86 y.o. male being seen today, 01/24/22, Chief Complaint Patient presents with Left Wrist - Follow-up Follow-up [chief complaint] pain numbness tingling fingers left hand HPI Dictation: Carpal tunnel surgery little over a year ago apparently was improved for up to the first month and then developed recurrent symptoms with numbing tingling involving the fingers the median nerve distribution he denies any significant wrist pain or pain at the base of his thumb he has had an MRI performed which shows postsurgical release of the flexor retinaculum at the level of the carpal tunnel without evidence of injury or swelling of the median nerve and no obvious evidence of median nerve entrapment or or inflammation with an EMG done in October showing severe sensory axonal damage [hpi] 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 Physical Exam Dictation: [PE] exam he has well-healed surgical scar negative Tinel's Phalen's numbing tingling median nerve distribution expected no significant pain at the thumb or wrist Assessment and Plan Dictation: [AP] persistent symptoms of carpal tunnel status post surgery with evidence of sensory axonal damage in my opinion for surgery most likely would not be of benefit the nerve changes were most likely present prior to his surgery although I do not have the preoperative EMG is not clear to me that additional surgery would be of benefit I will see him back as needed and after he finishes therapy on his spine which have operated on recently I have reviewed all relevant histories, medications, allergies, and problem list items with Jaime Melchor during this visit. Review of Systems Constitutional: Negative for chills and fever. HENT: Negative for congestion. Respiratory: Negative for shortness of breath. Cardiovascular: Negative for chest pain. Gastrointestinal: Negative for diarrhea, nausea and vomiting. Neurological: Negative for headaches. Psychiatric/Behavioral: Negative for behavioral problems. There were no vitals taken for this visit. Imaging: No results found. 1. Left carpal tunnel syndrome Ambulatory referral to Orthopedics Return if symptoms worsen or fail to improve. Roxy Pablo MD documented in this encounter [facility] 12-22-2021 History of Present illness Narrative ASSESSMENT/PLAN: 1. Primary open-angle glaucoma, right eye, severe stage - ICD9: 365.11, 365.73, ICD10: H40.1113 (primary diagnosis) 2. Primary open-angle glaucoma, left eye, moderate stage - ICD9: 365.11, 365.72, ICD10: H40.1122 Status Post Xen Gel Right Eye (01/15/2021) Status Post Xen Gel Left Eye (03/26/2021) Status Post Bleb Needling Right Eye (06/11/2021) Continue: Systane Hydration (PF) solution instill 1 drop 3 times daily Both Eyes. Refresh PM Ointment at bedtime into Right Eye. Follow up in 4 months for OCT 3. Pseudophakia of both eyes - ICD9: V43.1, ICD10: Z96.1 Lens position well centered both eyes 4. Benign prostatic hyperplasia without lower urinary tract symptoms - ICD9: 600.00, ICD10: N40.0 5. Atrial fibrillation, unspecified type (HCC) - ICD9: 427.31, ICD10: I48.91 Continue care with primary care physician Clare Vasquez MD I have confirmed and edited as necessary the relevant ophthalmic history, review of systems, surgical history, and ophthalmological examination findings as obtained by the ophthalmic technical staff. I have seen and examined Jaime Melchor. I have discussed the examination findings, diagnosis, and treatment options with Jaime Melchor and/or his family. I have also reviewed and agree with the assessment and plan as stated above and agree with all its relevant components. I gave the patient the opportunity to ask questions about the findings, diagnosis, and treatment options. documented in this encounter [facility] 12-15-2021 History of Present illness Narrative [facility] [address] (11) [facility] [address] [facility] [id number] Jaime Melchor is a 86 y.o. male being seen today, 12/15/21, Chief Complaint Patient presents with Lower Back - Post-op LAMINECTOMY L3-5 SX:09/23/21 [chief complaint] status post decompressive laminectomy L2-L5 HPI Dictation: Patient seen routine follow-up he is having minimal pain but he does indicate he still has some difficulty with any prolonged standing or walking [hpi] Physical Exam Dictation: [PE] again no radicular symptoms mild increased pain with extremes of lumbar rate Assessment and Plan Dictation: [AP] plan physical therapy return in 4 to 6-week I have reviewed all relevant histories, medications, allergies, and problem list items with Jaime Melchor during this visit. Review of Systems Constitutional: Negative for chills and fever. HENT: Negative for congestion. Respiratory: Negative for shortness of breath. Cardiovascular: Negative for chest pain. Gastrointestinal: Negative for diarrhea, nausea and vomiting. Neurological: Negative for headaches. Psychiatric/Behavioral: Negative for behavioral problems. Ht 5' 7 Wt 75.3 kg (166 lb) BMI 26.00 kg/m Imaging: No results found. 1. Spinal stenosis of lumbar region with neurogenic claudication Return in about 4 weeks (around 01/12/2022). Roxy Pablo MD documented in this encounter [facility] 11-03-2021 History of Present illness Narrative [facility] [address] (11) [facility] [address] [facility] [phone] Jaime Melchor is a 85 y.o. male being seen today, 11/03/21, No chief complaint on file. [chief complaint] S post decompressive laminectomy L2-L5 HPI Dictation: Pain is minimal if any pain his x-rays show evidence of his previous laminectomy degenerative disc disease but no postoperative spinal listhesis [hpi] Physical Exam Dictation: [PE] his wounds healed nicely Assessment and Plan Dictation: [AP] tibias pain allows given the option of physical therapy which he declines no specific restrictions at this point return in 6 weeks I have reviewed all relevant histories, medications, allergies, and problem list items with Jaime Melchor during this visit. Review of Systems Constitutional: Negative for chills and fever. HENT: Negative for congestion. Respiratory: Negative for shortness of breath. Cardiovascular: Negative for chest pain. Gastrointestinal: Negative for diarrhea, nausea and vomiting. Neurological: Negative for headaches. Psychiatric/Behavioral: Negative for behavioral problems. There were no vitals taken for this visit. Imaging: No results found. 1. Spinal stenosis of lumbar region with neurogenic claudication Return in about 6 weeks (around 12/15/2021). Roxy Pablo MD documented in this encounter [facility] 10-06-2021 History of Present illness Narrative [facility] [address] ([address]) [facility] [address] [facility] [phone] Jaime Melchor is a 85 y.o. male being seen today, 10/06/21, Chief Complaint Patient presents with Lower Back - Suture / Staple Removal, Procedure, Follow-up [chief complaint] status post decompressive laminectomy L2-3-4 and 5 HPI Dictation: Man seen back in follow-up status post laminectomy as noted indicates his pain is improved substantially was [hpi] Physical Exam Dictation: [PE] wounds healed nicely all mike removed Assessment and Plan Dictation: [AP] Limited activity avoid bending lifting can stand and walk is tolerated return in 4 weeks for recheck I have reviewed all relevant histories, medications, allergies, and problem list items with Jaime Melchor during this visit. Review of Systems Constitutional: Negative for chills and fever. HENT: Negative for congestion. Respiratory: Negative for shortness of breath. Cardiovascular: Negative for chest pain. Gastrointestinal: Negative for diarrhea, nausea and vomiting. Neurological: Negative for headaches. Psychiatric/Behavioral: Negative for behavioral problems. There were no vitals taken for this visit. Imaging: No results found. No diagnosis found. Return in about 4 weeks (around 11/03/2021). Roxy Pablo MD documented in this encounter [facility] 09-14-2021 Instructions Clare Vasquez MD - 09/14/2021 10:38 AM EDT Continue: Systane Hydration (PF) solution instill 1 drop 3 times daily Both Eyes. Refresh PM Ointment at bedtime into Right Eye. If you have any questions please contact our office at [phone]. After office hours or on the weekend, please call Dr. Vasquez on his cell phone at [phone]. documented in this encounter [facility] 09-14-2021 History of Present illness Narrative ASSESSMENT/PLAN: 1. Primary open-angle glaucoma, right eye, severe stage - ICD9: 365.11, 365.73, ICD10: H40.1113 (primary diagnosis) 2. Primary open-angle glaucoma, left eye, moderate stage - ICD9: 365.11, 365.72, ICD10: H40.1122 3. S/P eye surgery - ICD9: V45.69, ICD10: Z98.890 Status Post Xen Gel Right Eye (01/15/2021) Status Post Xen Gel Left Eye (03/26/2021) Status Post Bleb Needling Right Eye (06/11/2021) Continue: Systane Hydration (PF) solution instill 1 drop 3 times daily Both Eyes. Refresh PM Ointment at bedtime into Right Eye. Clare Vasquez MD I have confirmed and edited as necessary the relevant ophthalmic history, review of systems, surgical history, and ophthalmological examination findings as obtained by the ophthalmic technical staff. I have seen and examined Jaime Melchor. I have discussed the examination findings, diagnosis, and treatment options with Jaime Melchor and/or his family. I have also reviewed and agree with the assessment and plan as stated above and agree with all its relevant components. I gave the patient the opportunity to ask questions about the findings, diagnosis, and treatment options. documented in this encounter [facility] 09-13-2021 History of Present illness Narrative [facility] [address] (11) [facility] [address] [facility] [phone] Jaime Melchor is a 85 y.o. male being seen today, 09/13/21, No chief complaint on file. 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 contributing to his central stenosis with bilateral 5 1 severe bilateral L4-5 and severe bilateral L3-4 moderate L2-3 foraminal stenosis indicates his symptoms are progressive we discussed options such as physical therapy and/or an epidural steroid injection he declines both with prior spinal surgery in the early he cannot recall what was done exactly and on plain x-ray and MRI there is no clear evidence with the procedure was Physical Exam Dictation: [PE] increased pain with all lumbar motion paraspinal spasm no gross mortises reflex asymmetry other lower extremity Assessment and Plan Dictation: [AP] there are 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 He is asking whether surgery could be performed and explained to him that the disease is certainly severe enough to warrant surgical intervention he like to schedule a date understands risk benefits hospital course explained in detail and will arrange laminectomy L3-5 does not appear that effusion is necessary I have reviewed all relevant histories, medications, allergies, and problem list items with Jaime Melchor during this visit. Review of Systems Constitutional: Negative for chills and fever. HENT: Negative for congestion. Respiratory: Negative for shortness of breath. Cardiovascular: Negative for chest pain. Gastrointestinal: Negative for diarrhea, nausea and vomiting. Neurological: Negative for headaches. Psychiatric/Behavioral: Negative for behavioral problems. Ht 5' 7 Wt 77.1 kg (170 lb) BMI 26.63 kg/m Imaging: No results found. 1. Spinal stenosis of lumbar region with neurogenic claudication 2. Back pain, unspecified back location, unspecified back pain laterality, unspecified chronicity Ambulatory referral to Orthopedics Return for postop evaluation after scheduled surgery. Roxy Pablo MD documented in this encounter [facility] 07-29-2021 Note Situation: Pt's calling Background: He had a procedure 07/27/2021 Assessment: She said it looks good can she leave wound open during the day and just cover at night?She is also asking when do she need to stop cleaning and bandaging the wound Recommendation: Please advise Candace at [phone] thank you [facility] 07-27-2021 Note MOHS MICROGRAPHIC GAGE RGERY PROCEDURE NOTE LOCATION: [facility], [address] [place] [address] REFERRING PHYSICIAN: Anupama Sadler MD No current outpatient medications on file. No current facility-administered medications for this visit. PACEMAKER/DEFIBRILLATOR: No ARTIFICIAL JOINTS/METAL DEVICES: No ANTIBIOTIC PROPHYLAXIS: No IMMUNOSUPPRESSIVE MEDS: no IMPLANTED NEUROLOGICAL DEVICES: no HISTORY INFECTIOUS DISEASE (HIV, HBV, HCV): no Signed: Juice Perdomo MD Dermatology Resident: Michelle Matthews MD Derm Surg Nursing Staff: Kristina Sinha RN and KELLY Snow UNIVERSAL PROTOCOL / SAFETY CHECKLIST Procedure to be performed: Mohs Surgery Sign in Communication: yes Time Out: Team Confirms the Correct Patient, Correct Procedure, Correct Site and Site Marking, Correct Position (if applicable). Time: 1:28 PM Affirmation of Time Out: yes Sign Out Discussion: yes VITAL SIGNS: BP 171/92 Pulse 81 LOCAL ANESTHETIC: 1% Lidocaine with 1:100,000 Epinephrine 6.5 cc total volume administered throughout Mohs layers and any reconstruction. LESION #1 Diagnosis: Derm Mohs Lesion Diagnosis: Basal Cell Carcinoma Nodular Location (NYU #): Right central lateral neck (NYU #: 44) Mohs Case #: [id number] History: Primary Path report available at bedside (case number if available): Yes, [id number] Pre-op size: 1.0 x 0.7 cm Indication for MMS: Ill-defined margins and Size Skin Preparation: Iodine STAGE I The patient was positioned, prepped with alcohol and draped in the usual manner. Anesthesia was obtained with local infiltration. A 1-2 mm rim of tissue was marked circumferentially around the defect. The area thus outlined was excised at the level of subcutis. Hemostasis was achieved with electrocautery. The specimen was oriented, subdivided into 2 sections, chromacoded and submitted for horizontal frozen sections. The patient tolerated the procedure well and no complications were noted. Upon Review of the horizontal frozen sections for Stage 1, no residual tumor was seen. ------ CLOSURE: Mohs Defect size: 2.1 x 1.6 cm. Rationale for choice of reconstruction: After discussing the nature and purpose of the procedure, associated risks, possible consequence including scarring, bleeding, infection, wound dehiscence, and alternative methods of treatment, linear closure was chosen to reconstruct the defect. Anesthesia Type: 1% Lidocaine with 1:100,000 Epinephrine Skin Preparation: Iodine The patient was positioned, prepped and draped in the usual manner. Local anesthesia was obtained by infiltrating along the edges and at the base of the defect. ------ REPAIR TYPE: Intermediate Closure: Requiring excision of standing cones, extensive undermining, and layered closure with 5- 0 Monocryl and 5- 0 Chromic. The beveled edge of the Mohs defect was surgically removed. The wound edges were undermined in all directions to decrease the tension of the wound and facilitate skin edge apposition. Broad extensive undermining was performed in all directions at the subcutis to decrease the tension of the wound and facilitate skin edge apposition. Meticulous hemostasis was achieved with electrocautery. Redundant standing cones were removed to allow the wound to be closed without distortion. The deep tissue was opposed with 5- 0 Monocryl deep retention sutures in a buried vertical mattress fashion. The epidermal edges were opposed with 5- 0 Chromic in a running fashion. The surgical site was cleansed with saline and covered with a bandage as below. The patient tolerated the procedure well and no complications were noted. Final length of linear closure: 4.0 cm ------ I have personally reviewed the specimens and worked as the pathologist. 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 This note is prepared by Wander Plummer acting as Scribe for Juice Perdomo MD The scribe's documentation has been prepared under my direction and personally reviewed by me in its entirety. I confirm that the note above accurately reflects all work, treatment, procedures, and medical decision making performed by me. Juice Taylor (more content not included)... [facility] History of Past i llness Narrative Problem Noted Date Diagnosed Date Resolved Date Primary open angle glaucoma of right eye, severe stage 12/28/2020 04/18/2023 documented as of this encounter (statuses as of 04/19/2023) [facility] History of Past illness Narrative* Problem Noted Date Diagnosed Date Resolved Date Primary open angle glaucoma of right eye, severe stage 12/28/2020 04/18/2023 documented as of this encounter (statuses as of 07/03/2023) [facility] History of Present illness Narrative* Sotero Helms MD - 11/16/2020 12:03 PM EDT Images from the original note were not included. [facility] [address] [place] [address] Nerve Conduction & EMG Report Patient: Jaime Melchor Sex: Male Date of : 1935 Visit Date: 11/16/2020 11:52 Age: 85 Years Examining MD: Sotero Helms MD Referred by: Dr. Shay Temperature: 33.2 Current Height: 5 feet 9 inch Referred for: LUE numbness for a year. No DM. Hx of neck surgery. Plan: The study is design to evaluate for radiculopathy, plexopathy, entrapment neuropathy, median or ulnar neuropathy. Indication, risk, side effects, and alternatives were explained. Patient agreedto proceed. Patient was instructed to clean the puncture site with soap and water and put some ice pack for bruising. EMG Summary: The left median motor nerve conduction study showed prolonged distal latency, normal amplitude and conduction velocity. The left median sensory nerve conduction study showed absent response. The left ulnar motor nerve conduction study showed normal latency and amplitude reduced conduction velocity across the elbow to 38.3 m/s. The left ulnar sensory nerve conduction study was normal. The left radial, medial and lateral antebrachial cutaneous sensory nerve conduction study were normal. Needle EMG of the muscles tested showed no abnormal spontaneous activity. Normal motor unit action potentials and recruitment patterns were seen. Impression: This is an abnormal EMG. 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 Incidentally, there is also electrodiagnostic evidence of an asymptomatic left ulnar nerve entrapment across the elbow without any axonal damage. There is NO electrodiagnostic evidence of left cervical radiculopathy, brachial plexopathy or ulnar neuropathy at this time. Sotero Helms MD Diplomate, ABPN, NBPAS Clinical Neurophysiology, Neurology, Vascular Neurology and Sleep Medicine [facility] [place] [phone] Motor NCS Nerve / Sites Muscle Latency Amplitude Distance Velocity ms mV cm m/s L Median - APB Wrist APB 6.50 7.4 7 Elbow APB 10.60 7.4 21.5 52.4 L Ulnar - ADM Wrist ADM 3.06 7.3 6.5 B.Elbow ADM 7.04 6.3 21.5 54.0 A.Elbow ADM 10.04 6.0 11.5 38.3 Sensory NCS Nerve / Sites Peak Amp Amp.2-3 Distance Velocity d Lat.2 ms V V cm m/s ms L Radial - Snuff Forearm 2.42 21.3 10.0 10 63 L Median, Ulnar - Transcarpal comparison Median Palm NR NR NR 8 NR Ulnar Palm 2.29 0.40 15.8 8 50 NR L Lateral antebrachial cutaneous - Forearm Elbow 1.73 5.1 3.8 12 115 L Medial antebrachial cutaneous - Forearm Elbow 1.81 33.5 13.7 12 115 EMG Summary Table Spontaneous Activity Amplitude Duration Recruitment Polyphasia Comment Muscle Ins Act Fib PSW Fasc - - - - - L. Cervical paraspinals Normal 0 0 0 Normal Normal Normal Normal Normal L. Deltoid Normal 0 0 0 Normal Normal Normal Normal Normal L. Triceps brachii Normal 0 0 0 Normal Normal Normal Normal Normal L. Biceps brachii Normal 0 0 0 Normal Normal Normal Normal Normal L. Pronator teres Normal 0 0 0 Normal Normal Normal Normal Normal L. Extensor digitorum communis Normal 0 0 0 Normal Normal Normal Normal Normal L. First dorsal interosseous Normal 0 0 0 Normal Normal Normal Normal Normal L. Abductor pollicis brevis Normal 0 0 0 Normal Normal Normal Normal Normal L. Flexor carpi ulnaris Normal 0 0 0 Normal Normal Normal Normal Normal L. Flexor digitorum profundus, dig 4 & 5 Normal 0 0 0 Normal Normal Normal Normal Normal L. Abductor digiti minimi (manus) Normal 0 0 0 Normal Normal Normal Normal Normal documented in this [facility] Diagnosis Generalized weakness- Primary documented [facility] this [facility]* Diagnosis Carpal tunnel syndrome on left- Primary Carpal tunnel syndrome Generalized weakness Ulnar neuropathy at elbow, left documented in this encounter [facility] note* Diagnosis Pain- Primary Generalized pain documented in this encounter [facility] note* Diagnosis Spinal stenosis of lumbar region with neurogenic claudication- Primary Back pain, unspecified back location, unspecified back pain laterality, unspecified chronicity Spinal stenosis of lumbar region with neurogenic claudication- Primary [facility]* Diagnosis Spinal stenosis of lumbar region with neurogenic claudication- Primary Exposure to SARS-associated coronavirus Spinal stenosis of lumbar region with neurogenic claudication- Primary Spinal stenosis of lumbar region with neurogenic claudication documented [facility]* Diagnosis Spinal stenosis of lumbar region with neurogenic claudication- Primary Preoperative clearance Unspecified pre-operative examination Spinal stenosis of lumbar region with neurogenic claudication- Primary Spinal stenosis of lumbar region with neurogenic claudication documented [facility]* Diagnosis Primary open-angle glaucoma, right eye, severe stage- Primary Primary open-angle glaucoma, left eye, moderate stage S/P eye surgery Other states following surgery of eye and adnexa documented in this encounter [facility] note* Diagnosis Spinal stenosis of lumbar region with neurogenic claudication- Primary [facility]* Diagnosis Spinal stenosis of lumbar region with neurogenic claudication- Primary [facility]* Diagnosis Spinal stenosis of lumbar region with neurogenic claudication- Primary [facility]* Diagnosis Primary open-angle glaucoma, right eye, severe stage- Primary Primary open-angle glaucoma, left eye, moderate stage Pseudophakia of both eyes Lens replaced by other means Benign prostatic hyperplasia without lower urinary tract symptoms Atrial fibrillation, unspecified type (HCC) documented in this encounter [facility] note* Diagnosis Left carpal tunnel syndrome Carpal tunnel syndrome [facility]* Diagnosis Left carpal tunnel syndrome- Primary Carpal tunnel syndrome Left carpal tunnel syndrome- Primary Carpal tunnel syndrome documented in this encounter [facility] note* Diagnosis Primary open-angle glaucoma, left eye, moderate stage- Primary Primary open-angle glaucoma, right eye, severe stage Corneal scar, left eye Corneal opacity, unspecified documented in this encounter [facility] note* Diagnosis Left carpal tunnel syndrome- Primary Carpal tunnel syndrome Left carpal tunnel syndrome- Primary Carpal tunnel syndrome Left carpal tunnel syndrome Carpal tunnel syndrome [facility]* Diagnosis Left carpal tunnel syndrome- Primary Carpal tunnel syndrome Left carpal tunnel syndrome- Primary Carpal tunnel syndrome Left carpal tunnel syndrome Carpal tunnel syndrome [facility]* Diagnosis Left carpal tunnel syndrome Carpal tunnel syndrome [facility] Diagnosis Pain- Primary Generalized pain documented [facility]* Diagnosis Left carpal tunnel syndrome- Primary Carpal tunnel syndrome [facility]* Diagnosis Left carpal tunnel syndrome- Primary Carpal tunnel syndrome [facility] Diagnosis Spinal stenosis of lumbar region with neurogenic claudication- Primary [facility]* Diagnosis Spinal stenosis of lumbar region with neurogenic claudication- Primary [facility] Diagnosis Primary open-angle glaucoma, right eye, severe stage- Primary Primary open-angle glaucoma, left eye, moderate stage Optic atrophy Optic atrophy, unspecified Hypercholesteremia Pure hypercholesterolemia Atrial fibrillation, unspecified type (HCC) documented in this encounter [facility] note* Diagnosis Paroxysmal atrial fibrillation (CMS/HCC) Atrial fibrillation documented in this encounter [facility] Work Phone: Evaluation note* Diagnosis Primary open angle glaucoma of right eye, severe stage- Primary documented in this encounter [facility] note* Diagnosis Hypertension, unspecified type- Primary Atrial fibrillation, unspecified type (CMS/HCC) Malignant neoplasm of urinary bladder, unspecified site (CMS/HCC) Stenosis of carotid artery, unspecified laterality Stenosis of left carotid artery Occlusion and stenosis of carotid artery without mention of cerebral infarction Actinic keratosis documented in this encounter [facility] Work Phone: Evaluation note* Diagnosis Paroxysmal atrial fibrillation (CMS/HCC) Atrial fibrillation documented in this encounter [facility] Work Phone: Evaluation note* Diagnosis S/P eye surgery- Primary Other states following surgery of eye and adnexa Primary open-angle glaucoma, right eye, severe stage Primary open-angle glaucoma, left eye, moderate stage Optic atrophy Optic atrophy, unspecified [facility] Diagnosis Onychomycosis- Primary Dermatophytosis of nail [facility] Diagnosis Primary open-angle glaucoma, right eye, severe stage- Primary Primary open-angle glaucoma, left eye, moderate stage S/P eye surgery Other states following surgery of eye and adnexa Optic atrophy Optic atrophy, unspecified Pseudophakia of both eyes Lens replaced by other means [facility] Diagnosis Foot drop, right foot- Primary Onychomycosis Dermatophytosis of nail [facility] Diagnosis Foot drop, right foot- Primary [facility] Diagnosis Seborrheic dermatitis of scalp- Primary Other seborrheic dermatitis History of skin cancer Personal history of other malignant neoplasm of skin Mass of right axilla Open wound of right hand without foreign body, unspecified wound type, initial encounter Bilateral impacted cerumen Impacted cerumen Paroxysmal atrial fibrillation (HCC) Atrial fibrillation [facility] Diagnosis Primary open-angle glaucoma, right eye, severe stage- Primary Primary open-angle glaucoma, left eye, moderate stage S/P eye surgery Other states following surgery of eye and adnexa Optic atrophy Optic atrophy, unspecified Hypercholesteremia Pure hypercholesterolemia Atrial fibrillation, unspecified type (HCC) [facility] Diagnosis Primary open-angle glaucoma, right eye, severe stage- Primary Primary open-angle glaucoma, left eye, moderate stage Optic atrophy Optic atrophy, unspecified Hypercholesteremia Pure hypercholesterolemia Atrial fibrillation, unspecified type (HCC) [facility]* Mr. MELCHOR presents with signs and symptoms consistent with and demonstrates impairments/limitations in . They would benefit from skilled Physical Therapy with combination of manual therapy techniques to decrease myofascial and joint restrictions, as well as progression of exercises for ROM, flexibility, strength, core stabilization, and glute retraining, and body mechanics education throughout POC to progress towards independence with ADL s/IADL s and return to PLOF. * Clinical Presentation: Stable and/or uncomplicated characteristics. * Level of Complexity: low * Problem List: activity limitations, ADLs/IADLs/self care skills, decreased functional level, fall risk, flexibility, gait/locomotion, motor function/control/tone, pain, participation restrictions, posture, range of motion/joint mobility, strength and transfers. [facility] Work Phone: History of Present illness Narrative* Mr. MELCHOR presents with signs and symptoms consistent with recent lumbar spine surgery as well as PT diagnosis of Chronic low back pain, gait difficulty, and impaired transfers and demonstrates impairments/limitations in lumbar AROM, MMT of BLE's and core musculature, as well as difficulty with proper mechanics for transfers and gait. Pt reported good understanding of all edu with HEP HO given. They would benefit from skilled Physical Therapy with combination of manual therapy techniques todecrease myofascial and joint restrictions, as well as progression of exercises for ROM, flexibility, strength, core stabilization, and glute retraining, and body mechanics education throughout POC to progress towards independence with ADL s/IADL s and return to PLOF. * Clinical Presentation: Stable and/or uncomplicated characteristics. * Level of Complexity: low * Problem List: activity limitations, ADLs/IADLs/self care skills, balance, decreased functional level, fall risk, flexibility, gait/locomotion, motor function/control/tone, pain, participation restrictions, posture, range of motion/joint mobility, strength and transfers. [facility] Work Phone: History of Present illness Narrative* Reviewed HEP that was given at [facility] with patient demo of proper technique. * Discussed cutting back on how many laps he walks and to try cutting laps down until he gets stronger in his LE's with the therapy. * Gastroc stretches added d/t cramping in the R HS/gastroc. * Added standing PRE's this date for improved strength in the LE's. * Weakness observed on R with hip extension. [facility] Work Phone: History of Present illness Narrative* Improved control with standing hip ext with decreased need for cues. * Mild guarding with gait. * Tightness with LTR B but has more difficulty with stretching to the L. * Tightness > on R with SKTC. * Tactile cues for correct technique with pelvic tilt but patient was able to complete properly cues. [facility] Work Phone: History of Present illness NarrativePatient identified by name and date of . Patient demonstrated difficulty at times with R hip flexion with stairs added seated march with resistance for increased hip strength. Patient required cues to maintain upright posture and decrease with compensations with standing exercises.[facility] Work Phone: History of Present illness Narrative* Added resistive row this date with TrA to continue facilitation of core strength progression. * Fatigues quickly with seated SLR this date d/t quad weakness. * Ambulates with mild trunk flexion. * Cues for upright posture with standing hip ext d/t compensations observed. [facility] Work Phone: History of Present illness Narrative* Increased antalgic gait this date. * Observed L hip drop with side steps this date with stepping to the L. * Increased guarding with transfers. * Good technique with paloff press this date. [facility] Work Phone: History of Present illness Narrative* Improved balance with standing PRE's. * Improved gait and addy this date as compared to last visit. * Guards with seated <> supine transfers. * Cues to complete glute squeeze during standing PRE's for improved control to avoid hip drop. [facility] Work Phone: History of Present illness Narrative* STS 30 sec timed test: 11 reps completed with fair eccentric control when sitting. * Improved lumbar ROM with LTR B this date. * Added tandem gait today with 1 UE lightly placed on the rail. * Added hip hiking d/t observed hip drop during gait. * Difficulty on the L > R with hip hikes. [facility] Work Phone: History of Present illness Narrative* Observed decreased hip drop during gait this date. * Improved addy and not as antalgic gait observed. * Checked leg length this date and alignment is symmetrical. * Decreased fatigue with standing PRE's this date. [facility] Work Phone: History of Present illness Narrative* Reviewed current HEP this date and put in order or importance. * Added NMRE this date for improved daily function and balance. * Added dynadisc to seated SLR to help improved core and quad strength. * Difficulty with BOSU running man when L LE on the BOSU with need to hold onto railing continuously. [facility] Work Phone: History of Present illness Narrative* Patient was more reserved today and not as talkative like he did not feel well. * Increased guarding today with all standing exercises. * Increased guarding with gait. * Patient needed standing rests between exercises today. [facility] Work Phone: History of Present illness Narrative* Patient was not as fatigued this date upon arrival. * Improved ability to complete ADL's. * Cues d/t circumduction of the R LE during hurdles, improved technique after cues. * Difficulty with running man when lunging on L on BOSU with need to hold onto railing most of the time. R LE was more stable with intermittent need for railing as compared to L LE on BOSU. * Mild compensation by posteriorly leaning trunk during seated SLR when sitting on dynadisc. * Patient was more reserved today and not as talkative like he did not feel well. * Increased guarding today with all standing exercises. * Increased guarding with gait. * Patient needed standing rests between exercises today. [facility] Work Phone: History of Present illness Narrative* Held STW this date per patient. * Added 4 square stepping to continue to challenge balance. Patient had 1 LOB but was able to recoverIndependently when stepping CW with 4 square. * Patient needed a few standing rest breaks throughout session. [facility] Work Phone: [place] of Present illness NarrativePatient identified by name and date of . Patient demonstrated compensations with hurdles and required cues to decrease with circumduction. He required short seated rest breaks due to fatigue. Herequired cues to increase with upright posture with activities.[facility] Work Phone: History of Present illness Narrative* Added cone taps this date for continued balance and control. * Increased LOB this date with need for PT to assist to regain. * Issues with balance with 4 square and tandem gait. [facility] [employer] Work Phone: History of Present illness Narrative* Improved overall balance this date during standing PRE's and ambulation. * Needed only 1 seated rest break this date as compared to several last visit. * Improved core control with resisted trunk PRE's. [facility] Work Phone: History of Present illness Narrative* Pt reassessed this date by supervising PT with improvements noted in Lumbar AROM as well as MMT in BLE s compared to eval.. Pt deferred doing ther-ex this date and requested to defer any manual therapy this date as well so pt only kept for 30 minutes for re-assessment and to discuss/review HEP. Pt reported good understanding of all edu and updates to HEP made this date and is appropriate to attempt independence with HEP and symptom management at this time with blue band given for progression ofther-ex at home. * Patient was able to complete today's treatment with ease. [facility] Work Phone: reason for visit Narrative* Initial Evaluation . Spinal Stenosis with neurogenic claudication. * Referred by: Roxy Pablo [facility] Work [facility]: History of Present Illness * Ayaz Wright, - 11/22/2018 11:00 AM EDT Pertinent cardiac diagnoses Persistent atrial fibrillation (hcc) (primary encounter diagnosis) Sick sinus syndrome (hcc) Status post placement of implantable loop recorder Hyperlipidemia, unspecified hyperlipidemia type History of Present Illness 83 y.o. male with history of permanent atrial fibrillation and of pausesgreater than or equal to 3 seconds. He has an implantable loop recorder and to date these episodes occur during hours of sleep. He does note some dyspnea on exertion but no near syncope or syncopal ep isodes. No exertional chest discomfort nor signs or symptoms of congestive heart failure. He is noton any negative chronotropic medications in view of his previous pauses. Last follow-up he had someorthostatic lightheadedness with a relatively low blood pressure but no near-syncope or syncopal episodes. His loop recorder battery did reach expiration and in discussion with patient, since he remained asymptomatic no recent implant was pursued. He continues to have rather low blood pressures and some orthostasis. No near- syncope or syncopal episodes. No chest discomfort or unusual shortness of breath. He remains active physically. No Known Allergies Outpatient Medications Prior to Visit Medication Sig Dispense Refill ascorbic acid 500 MG Tab tablet Take 1,000 mg by mouth daily. brimonidine 0.2 % Solution 1 drop 2 times daily. Calcium Carbonate (EQL CALCIUM) 600 MG Tab tablet Take by mouth. latanoprost 0.005 % Solution ophthalmic solution 1 drop daily. minocycline 50 MG Cap Take 50 mg by mouth daily. omeprazole [address] capsule Take 20 mg by mouth daily. Rivaroxaban 20 MG tablet Take 20 mg by mouth daily with dinner. simvastatin 10 MG Tab tablet Take 10 mg by mouth every evening at 6 PM. No facility-administered medications prior to visit. Family History Problem Relation Age of Onset Breast Cancer Mother Stroke Father Heart Disease - Other Father Breast Cancer Sister Cancer- Other Sister Heart Disease - Other Sister has a past surgical history that includes insertion catheter arterial percutaneous (12/23/2013); loop recorder implantation; malignant skin lesion excision (01/29/2014); cervical fusion (1990); lumbar fusion (1992); bladder surgery (08/2014); removal cataract (); and thromboendartectomy (12/23/2013). Social History Socioeconomic History Marital status: Spouse name: Not on file Number of children: Not on file Years of education: Not on file Highest education level: Not on file Occupational History Not on file Social Needs Financial resource strain: Not on file Food insecurity: Worry: Not on file Inability: Not on file Transportation needs: Medical: Not on file Non-medical: Not on file Tobacco Use Smoking status: Former Smoker Packs/day: 1.00 Years: 40.00 Pack years: 40.00 Types: Cigarettes Last attempt to quit: 05/29/1991 Years since quittin.5 Smokeless tobacco: Never Used Substance and Sexual Activity Alcohol use: Yes Alcohol/week: 2.0 standard drinks Types: 2 Cans of beer per week Comment: occasional use Drug use: No Sexual activity: Not on file Lifestyle Physical activity: Days per week: Not on file Minutes per session: Not on file Stress: Not on file Relationships Social connections: Talks on phone: Not on file Gets together: Not on file Attends methodist service: Not on file Active member of club or organization: Not on file Attends meetings of clubs or organizations: Not on file Relationship status: Not on file Intimate partner violence: Fear of current or ex partner: Not on file Emotionally abused: Not on file Physically abused: Not on file Forced sexual activity: Not on file Other Topics Concern Not on file Social History Narrative Not on file Review of System 10 systems reviewed, pertinent positives listed above Blood pressure 80/48, pulse 77, resp. rate 16, height 1.753 m (5' 9 ), weight 72.1 kg (159 lb), SpO2 98 %. Body mass index is 23.48 kg/m . Physical Exam General appearance - alert, well developed, well nourished,83 y.o.male appropriate affect HEENT PERRLA, EOMI, no xanthelasma or icterus Neck - supple, No JVD or bruits. Upstrokes equal bilaterally. No adenopathy or thyromegaly. Lungs - clear to auscultation, no wheezes, rales or rhonchi Heart - slightly irregular, normal S1 and S2 without S3 no significant murmur Abdomen - soft, nontender, no organomegaly Extremities -no edema, clubbing or cyanosis, pulses 2+ bilaterally Neurologic: cranial nerves II through XII intact Musculoskeletal - no joint deformity, tendon xanthoma Skin - normal coloration and turgor, no laxity Psych- appropriate mood Lab Results: No results found for: SODIUM, POTASSIUM, MAGNESIUM, CALCIUM, CHLORIDE, TP, BUN, CREATSERUM, ALBUMIN, BILITOTAL, AST, ALKPHOS, CO2, AGRATIO, ALT, GFR, GFRAA, GFRCOMMENT, GLUCOSE, TROP No results found for: CHOLESTEROL, TRIG, HDL, LDLCALC, BLDL, TCHHDLMANENT No results found for: PT, INR, PTT, WBC, RBC, HGB, HCT, MCV, MEANCELHGB, MEANCELHGCON, RBCDISTRIBU,PLATELET, MPV, NEUTROPHILS, LYMPHOCYTES, MONOCYTE, EOSINOPHILS, BASOPHILS, RBCCOMMENTS, DIFFTYPE, PLTCMT, HGBA1C, ESTAVGGLUCOS, TSH Problem List Items Addressed This Visit Cardiovascular Atrial fibrillation - Primary Orthostasis Idiopathic hypotension Endocrine Hyperlipidemia Other Encounter for loop recorder at end of battery life Assessment & Plan Continued low blood pressure but has not significantly increased his salt intake. Emphasized the need for this and if unable to take insufficiency although then prescribe salt tablets, 1 g 3 times a day. ProAmatine may also be effective. Otherwise remains asymptomatic from the cardiac standpoint. Ayaz Wright DO 11/22/2018 1:56 PM documented in this encounter Assessments Diagnosis Persistent atrial fibrillation- Primary Atrial fibrillation Orthostasis Orthostatic hypotension Idiopathic hypotension Hypotension, unspecified Hyperlipidemia, unspecified hyperlipidemia type Encounter for loop recorder at end of battery life Reason for Referral Status Reason Specialty Diagnoses / Procedures Referred By Contact Referred To Contact Authorized Neurology Diagnoses Generalized weakness June Shay MD [address] [place] [address] Sotero Helms MD [address] [address] Specialty Diagnoses / Procedures Referred By Contac t Referred To Contact Radiology Diagnoses Spinal stenosis of lumbar region with neurogenic claudication Procedures MR Lumbar Spine Without Contrast ViauRoxy MD [address] [place] [address] Referral ID Status Reason Start Date Expiration Date V isits Requested Visits Authorized [id number] New Request 09/06/2022 09/06/2023 1 1 Specialty Diagnoses / Procedures Referred By Contac t Referred To Contact Diagnoses Paroxysmal atrial fibrillation (CMS/HCC) Procedures ECG 12 lead June Shya MD [address] [place] [id number] Referral ID Status Reason Start Date Expiration Date V isits Requested Visits Authorized [id number] Pending Review 03/20/2023 03/19/2024 1 1 Specialty Diagnoses / Procedures Referred By Contac t Referred To Contact Radiology Diagnoses Mass of right axilla Procedures US Upper Extremity Non Vascular Limited Right Marcio Jordan, DO [address] [place] [address] Ultrasound [address] [place] [address] Referral ID Status Reason Start Date Expiration Date V isits Requested Visits Authorized [id number] Authorized 10/19/2023 10/18/2024 1 1 Advance Directives No Advanced Directives Records FoundDocuments on File Type Date Recorded Patient Onion Topper Expl anation Advance Directives and Livin g Will 2020 12:00 AM Documents on File Type Date Recorded Patient Onion Topper Expl anation Advance Directives and Living Will Documents on File Type Date Recorded Patient Onion Topper Expl anation Advance Directives and Living Will Documents on File Type Date Recorded Patient Onion Topper Expl anation Advance Directives and Living Will 09/13/2021 10:32 AM NOT ON FILE HERE Documents on File Type Date Recorded Patient Onion Topper Expl anation Advance Directives and Living Will 09/13/2021 10:32 AM NOT ON FILE HERE Documents on File Type Date Recorded Patient Onion Topper Expl anation Advance Directive(s) 03/26/2021 9:34 AM Advance Directive(s) 01/15/2021 8:51 AM Advance Directive(s) 01/14/2021 1:41 PM Advance Directive(s) 04/12/2016 10:56 AM Advance Directive(s) 08/06/2014 6:49 AM Advance Directive(s) 08/06/2014 6:51 AM Documents on File Type Date Recorded Patient Onion Topper Expl anation Advance Directives and Living Will 09/23/2021 5:41 AM NOT ON FILE HERE Latest Code Status on File Code Status Date Activated Date Inactivated Comments Full Code 09/23/2021 12:34 PM 09/27/2021 2:43 PM Latest Code Status on File Date Activated Date Inactivated Comments 09/23/2021 12:34 PM 09/27/2021 2:43 PM Documents on File Type Date Recorded Patient Onion Topper Expl anation Advance Directive(s) 08/06/2014 6:49 AM Advance Directive(s) 08/06/2014 6:51 AM Latest Code Status on File Code Status Date Activated Date Inactivated Comments Full Code 09/23/2021 12:34 PM 09/27/2021 2:43 PM Latest Code Status on File Code Status Date Activated Date Inactivated Comments Full Code 09/23/2021 12:34 PM 09/27/2021 2:43 PM Documents on File Type Date Recorded Patient Onion Topper Expl anation Advance Directive(s) 08/06/2014 6:51 AM Advance Directive(s) 08/06/2014 6:49 AM Date Activated Date Inactivated Comments 09/23/2021 12:34 PM 09/27/2021 2:43 PM Date Activated Date Inactivated Comments 09/23/2021 12:34 PM 09/27/2021 2:43 PM Summary Purpose Family History No Family History Records FoundNo Family History Records FoundNo Family History Records FoundNo Family History Records FoundNo Family History Records FoundNo Family History Records FoundNo Family History Records FoundNo Family History Records FoundNo Family History Records FoundNo Family History Records FoundNo Family History Records FoundNo Family History Records Found Medications Administered Section Active Administered Medications - up to 3 most recent administrations Medication Order MAR Action Action Date Dose Rate Site fluorescein-benoxinate 0.25-0.4 % 1 Drop (FLURESS) 1 Drop, BOTH EYES, DIRECTED, Starting on Mon12/22/21 at 1400, Until Mon12/23/21 at 0159, Administer for applanation tonometry. In the event of a Fluress shortage, administer [place]-Fluor 1 drop into both eyes as directed for applanation tonometry Given 12/22/2021 2:00 PM EDT 1 Drop PHENYLephrine 2.5 % 1 Drop (AK-DILATE, RIZWANA-SYNEPHRINE) 1 Drop, BOTH EYES, DIRECTED, Starting on Mon12/22/21 at 1400, Until Mon12/23/21 at 0159, Administer for dilation PROTECT FROM LIGHT Given 12/22/2021 2:00 PM EDT 1 Drop proparacaine 0.5 % 1 Drop (ALCAINE) 1 Drop, BOTH EYES, DIRECTED, Starting on Mon12/22/21 at 1400, Until Mon12/23/21 at 0159, Administer for pneumo tonometry, tonopen tonometry, or pachymetry. In the event of a proparacaine shortage, administer tetracaine 0.5% ophthalmic drops 1 drop in the left eye as directed for pneumo tonometry, tonopen tonometry, or pachymetry Given 12/22/2021 2:00 PM EDT 1 Drop tropicamide 1 % 1 Drop (MYDRIACYL) 1 Drop, BOTH EYES, DIRECTED, Starting on Mon12/22/21 at 1400, Until Mon12/23/21 at 0159, Administer for dilation Given 12/22/2021 2:00 PM EDT 1 Drop Additional Source Comments Reason for Visit (unrecogniz ed section and content) Reason Comments Other Reason Comments Advice Only Reason Comments Follow-up No complaints. Reason Comments Appointment Status Reason Specialty Diagnoses / Procedures Referre d By Contact Referred To Contact Closed Neurology Diagnoses Generalized weakness June Shay MD [address] [place] [address] Sotero Helms MD [address] [place] [address] Specialty Diagnoses / Procedures Referred By Contdana t Referred To Contact Orthopedic Surgery Diagnoses Back pain, unspecified back location, unspecified back pain laterality, unspecified chronicity June Shay MD [address] [place] [address] Roxy Pablo MD [address] [place] [address] Referral ID Status Reason Start Date Expiration Date Visits Re quested Visits Authorized [id number] Closed 08/23/2021 08/23/2022 1 1 Reason Comments Primary Open Angle Glaucoma Follow Up [place] kessler here as directed for intraocular pressure check Both Eyes. Reason Comments Suture / Staple Removal Procedure Follow-up Reason Comments Post-op LAMINECTOMY L3-5 SX: 09/23/21 Reason Comments Glaucoma Follow Up right eye- severe st age; left eye - moderate stage Reason Comments Follow-up Specialty Diagnoses / Procedures Referred By Nora t Referred To Contact Orthopedic Surgery Diagnoses Left carpal tunnel syndrome Gwendolyn Machado, MANAGER ART [address] [place] [address] Roxy Pablo MD [address] [address] Referral ID Status Reason Start Date Expiration Date Visits Re quested Visits Authorized [id number] Closed 12/31/2021 12/31/2022 1 1 Reason Comments Refill Request Reason Comments Primary Open Angle Glaucoma Follow Up [place] th eyes Reason Comments Pre-op Exam Reason Onset Date Comments Medication Refill 04/27/2022 Reason Onset Date Comments Medication Refill 05/03/2022 Reason Comments Pain Post-op LT CTR SX:04/28/22 Reason Comments Post-op LT CTR SX:04/28/22 Reason Comments Primary Open Angle Glaucoma Follow Up Le ft eye: Moderate stageRight eye: Severe stage Specialty Diagnoses / Procedures Referred By Nora t Referred To Contact Diagnoses Paroxysmal atrial fibrillation (CMS/HCC) Procedures ECG 12 lead June Shay MD [address] [place] [address] Referral ID Status Reason Start Date Expiration Date V isits Requested Visits Authorized [id number] Pending Review 03/20/2023 03/19/2024 1 1 Reason Comments Follow-up NEW PATIENT VISIT Reason Comments Post-Op i-Stent infinite Right eye 04-18 Reason Comments Nail Care Patient presents for possible fungus on greater right toe. Patient is unsure when spot appeared, but thinks spot is traveling down toe. Reason Comments Primary Open Angle Glaucoma Follow Up [place] th eyes Post-op (Ophthalmology) Right Eye Status Post i-Stent Infinite Right Eye (04/18/2023) Reason Comments Follow-up Patient presents for follow up pathology of right great toe Reason Comments Follow-up Patient presents for follow up toe fungus, left foot, needs help with brace right foot. Reason Comments Establish Care Ears full, spots on head, lump under Right arm pit Reason Comments Glaucoma Follow Up Right eye- severe st age; left eye- moderate stage (unrecognized sect ion and content) No Status Records FoundNo Status Records FoundNo Status Records FoundNo Status Records FoundNo Status Records FoundNo Status Records FoundNo Status Records FoundNo Status Records FoundNo Status Records FoundNo Status Records FoundNo Status Records FoundNo Status Records Found INFORMATION SOURCE (unrecogn ized section and content) DATE CREATED AUTHOR 08/20/2021 [employer] DATE CREATED AUTHOR AUTHOR'S ORGANIZ ATION 01/18/2022 [facility] DATE CREATED AUTHOR AUTHOR'S ORGANIZ ATION 04/04/2022 [employer] DATE CREATED AUTHOR AUTHOR'S ORGANIZ ATION 12/28/2022 [facility] DATE CREATED AUTHOR AUTHOR'S ORGANIZ ATION 03/18/2023 [facility] DATE CREATED AUTHOR AUTHOR'S ORGANIZ ATION 04/15/2023 [facility] DATE CREATED AUTHOR AUTHOR'S ORGANIZ ATION 04/19/2023 [facility] DATE CREATED AUTHOR AUTHOR'S ORGANIZ ATION 05/05/2023 [facility] DATE CREATED AUTHOR AUTHOR'S ORGANIZ ATION 10/24/2023 [facility] DATE CREATED AUTHOR AUTHOR'S ORGANIZ ATION 11/19/2023 [facility] DATE CREATED AUTHOR AUTHOR'S ORGANIZ ATION 01/26/2024 [facility] DATE CREATED AUTHOR AUTHOR'S ORGANIZ ATION 02/08/2024 [facility] Care Teams (unrecognized sec tion and content) Demand Equipment Repairer Relationship Specialty Start Date End Date June Shay MD [address] [place] [address] PCP - General Family Medicine 11/11/20 Demand Equipment Repairer Relationship Specialty Start Date End Date June Shay MD [address] [place] [address] PCP - General Family Medicine 11/11/20 Demand Equipment Repairer Relationship Specialty Start Date End Date June Shay MD [address] [place] [address] PCP - General Family Medicine 11/11/20 Demand Equipment Repairer Relationship Specialty Start Date End Date June Shay MD [address] [place] [address] PCP - General Family Medicine 11/11/20 Demand Equipment Repairer Relationship Specialty Start Date End Date June Shay PCP - General Family Practice 03/29/10 Demand Equipment Repairer Relationship Specialty Start Date End Date June Shay MD [address] [place] [address] PCP - General Family Medicine 11/11/20 Demand Equipment Repairer Relationship Specialty Start Date End Date June Shay MD [address] [place] [address] PCP - General Family Medicine 11/11/20 Demand Equipment Repairer Relationship Specialty Start Date End Date June Shay PCP - General Family Practice 03/29/10 Demand Equipment Repairer Relationship Specialty Start Date End Date June Shay PCP - General Family Medicine 03/29/10 Demand Equipment Repairer Relationship Specialty Start Date End Date June Shay MD [address] [place] [address] PCP - General Family Medicine 11/11/20 Demand Equipment Repairer Relationship Specialty Start Date End Date June Shay MD [address] [place] [address] PCP - General Family Medicine 11/11/20 Demand Equipment Repairer Relationship Specialty Start Date End Date June Shay PCP - General Family Medicine 03/29/10 Demand Equipment Repairer Relationship Specialty Start Date End Date June Shay MD [address] [place] [address] PCP - General Family Medicine 11/11/20 Demand Equipment Repairer Relationship Specialty Start Date End Date June Shay MD [address] [place] [address] PCP - General Family Medicine 11/11/20 Demand Equipment Repairer Relationship Specialty Start Date End Date June Shay MD [address] [place] [address] PCP - General Family Medicine 11/11/20 Demand Equipment Repairer Relationship Specialty Start Date End Date June Shay MD [address] [place] [address] PCP - General Family Medicine 11/11/20 Demand Equipment Repairer Relationship Specialty Start Date End Date June Shay MD [address] [place] [address] PCP - General Family Medicine 11/11/20 Demand Equipment Repairer Relationship Specialty Start Date End Date June Shay MD [address] [place] [address] PCP - General Family Medicine 11/11/20 Demand Equipment Repairer Relationship Specialty Start Date End Date June Shay MD [address] [place] [address] PCP - General Family Medicine 11/11/20 Demand Equipment Repairer Relationship Specialty Start Date End Date June Shay MD PCP - General Family Medicine 03/29/10 Demand Equipment Repairer Relationship Specialty Start Date End Date June hSay MD [address] [place] [address] PCP - General 05/29/18 Demand Equipment Repairer Relationship Specialty Start Date End Date June Shay MD PCP - General Family Medicine 03/29/10 Demand Equipment Repairer Relationship Specialty Start Date End Date June Shay MD [address] [place] [address] PCP - General 05/29/18 Demand Equipment Repairer Relationship Specialty Start Date End Date June Shay MD [address] [place] [address] PCP - General 05/29/18 Demand Equipment Repairer Relationship Specialty Start Date End Date Martin Hinds MD [address] [id number] PCP - General Internal Medicine 04/12/23 Demand Equipment Repairer Relationship Specialty Start Date End Date June Shay MD [address] [place] [address] PCP - General Family Medicine 11/11/20 Demand Equipment Repairer Relationship Specialty Start Date End Date Marcio Jordan DO [address] [address] PCP - General Family Medicine 07/03/23 Demand Equipment Repairer Relationship Specialty Start Date End Date June Shay MD [address] [place] [address] PCP - General Family Medicine 11/11/20 Demand Equipment Repairer Relationship Specialty Start Date End Date June Shay MD [address] [place] [address] PCP - General Family Medicine 11/11/20 Demand Equipment Repairer Relationship Specialty Start Date End Date Marcio Jordan DO [address] [place] [address] PCP - General Family Medicine 10/19/23 Demand Equipment Repairer Relationship Specialty Start Date End Date Marcio Jordan DO [address] [address] PCP - General Family Medicine 07/03/23 Demand Equipment Repairer Relationship Specialty Start Date End Date Gema Chu APRN.MANAGER ART [address] [place] [address] PCP - General Family Medicine 02/06/24 Source Comments (unrecognize d section and content) In the event this informatio n is protected by the Federal Confidentiality of Alcohol and Drug Abuse Patient Records regulations: The Federal rules restrict any use of the information to criminally investigate or prosecute any alcohol or drug abuse patient.[facility] Center[facility] the event this information is protected by the Federal Confidentiality of Alcohol and Drug Abuse Patient Records regulations: The Federal rules restrict any use of the information to criminally investigate or prosecute any alcohol or drug abuse patient.[facility] Center[facility] the event this information is protected by the Federal Confidentiality of Alcohol and Drug Abuse Patient Records regulations: The Federal rules restrict any use of the information to criminally investigate or prosecute any alcohol or drug abuse patient.[facility] Center[facility] the event this information is protected by the Federal Confidentiality of Alcohol and Drug Abuse Patient Records regulations: The Federal rules restrict any use of the information to criminally investigate or prosecute any alcohol or drug abuse patient.[facility] Center[facility] the event this information is protected by the Federal Confidentiality of Alcohol and Drug Abuse Patient Records regulations: The Federal rules restrict any use of the information to criminally investigate or prosecute any alcohol or drug abuse patient.[facility] Center[facility] the event this information is protected by the Federal Confidentiality of Alcohol and Drug Abuse Patient Records regulations: The Federal rules restrict any use of the information to criminally investigate or prosecute any alcohol or drug abuse patient.[facility] Center[facility] the event this information is protected by the Federal Confidentiality of Alcohol and Drug Abuse Patient Records regulations: The Federal rules restrict any use of the information to criminally investigate or prosecute any alcohol or drug abuse patient.[facility] Center[facility] the event this information is protected by the Federal Confidentiality of Alcohol and Drug Abuse Patient Records regulations: The Federal rules restrict any use of the information to criminally investigate or prosecute any alcohol or drug abuse patient.[facility] Center[facility] the event this information is protected by the Federal Confidentiality of Alcohol and Drug Abuse Patient Records regulations: The Federal rules restrict any use of the information to criminally investigate or prosecute any alcohol or drug abuse patient.[facility] Center[facility] the event this information is protected by the Federal Confidentiality of Alcohol and Drug Abuse Patient Records regulations: The Federal rules restrict any use of the information to criminally investigate or prosecute any alcohol or drug abuse patient.[facility] <item> Privacy Markings (unrecogniz ed section and content) Section Author: Yolanda Ortez PROHIBITION ON REDISCLOSURE OF CONFIDENTIAL INFORMATION This notice accompanies a disclosure of information concerning a client made to you with the consent of such client. Active Administered Medications - up to 3 most recent administrations Administered Medications (un recognized section and content) Medication Order MAR Action Action Date Dose Rate Site fluorescein-benoxinate 0.3-0.4 % 1 Drop (FLURESS) 1 Drop, BOTH EYES, DIRECTED, Starting on Mon07/03/23 at 1030, Until Mon07/03/23 at 2229, Administer for applanation tonometry. In the event of a Fluress shortage, administer [place]-Fluor 1 drop into both eyes as directed for applanation tonometry Given 07/03/2023 10:30 AM EST 1 Drop PHENYLephrine 2.5 % 1 Drop (AK-DILATE, RIZWANA-SYNEPHRINE) 1 Drop, BOTH EYES, DIRECTED, Starting on Mon07/03/23 at 1030, Until Mon07/03/23 at 2229, Administer for dilation PROTECT FROM LIGHT Given 07/03/2023 10:30 AM EST 1 Drop proparacaine 0.5 % 1 Drop (ALCAINE) 1 Drop, BOTH EYES, DIRECTED, Starting on Mon07/03/23 at 1030, Until Mon07/03/23 at 2229, Administer for pneumo tonometry, tonopen tonometry, or pachymetry. In the event of a proparacaine shortage, administer tetracaine 0.5% ophthalmic drops 1 drop in the left eye as directed for pneumo tonometry, tonopen tonometry, or pachymetry Given 07/03/2023 10:30 AM EST 1 Drop tropicamide 1 % 1 Drop (MYDRIACYL) 1 Drop, BOTH EYES, DIRECTED, Starting on Mon07/03/23 at 1030, Until Mon07/03/23 at 2229, Administer for dilation Given 07/03/2023 10:30 AM EST 1 Drop FOR RECORDS PERTAINING TO PATIENTS WHO ARE OR HAVE BEEN ENROLLED IN A CHEMICAL DEPENDENCY/SUBSTANCEABUSE PROGRAM, SOME INFORMATION MAY BE OMITTED. This clinical summary was aggregated from multiple sources. Caution should be exercised in using it in the provision of clinical care. This summary normalizes information from multiple sources, and as a consequence, information in this document may materially change the coding, format and clinical context of patient data. In addition, data may be omitted in some cases. CLINICAL DECISIONS SHOULD BE BASED ON THE PRIMARY CLINICAL RECORDS. [facility] [facility]. provides no warranty or guarantee of the accuracy or completeness of information in this document.
== END | disposition home or self-care (01) ==
PROVIDERS: PCP Nurse Practitioner Family; Referring Provider Urology; Visit Provider Urology
DX: D30.3 Benign neoplasm of bladder (principal)
CPT/HCPCS: 88307

== ENCOUNTER → 2024-07-29 | Outpatient (CLI) | payer OTHER, SELFPAY ==
--- NOTE | 2024-07-29 13:10 | CT_ITS ---
PROCEDURE: CHEST WITHOUT CONTRAST REASON FOR EXAM: History of bilateral breast nodules. History of bladder cancer. TECHNIQUE: Chest CT without contrast. COMPARISON: Comparison is made with prior study dated April 18, 2024. FINDINGS: Hardware: None. Lymph nodes: Stable slightly enlarged subcarinal lymph nodes. Heart and Vasculature: Normal heart size. No pericardial effusion. Thoracic aorta and pulmonary arteries have normal contours; noncontrast technique limits evaluation. Coronary Artery Calcifications: Present Lungs and Airways: Once again, there are multiple calcified granulomas as well as multiple small bilateral pulmonary nodules. There has been essentially no change. Pleura: No pleural effusion. No pneumothorax. Upper Abdomen: Visualized portions of the upper abdominal viscera are unremarkable. Bones: Degenerative changes of the thoracic spine. CT/Chest without Contrast IMPRESSION: Stable examination. One or more dose reduction techniques were used (e.g., Automated exposure contr ol, adjustment of the mA and/or kV according to patient size, use of iterative reconstruction technique). Reading Location: [facility]
== END | disposition home or self-care (01) ==
LOC: CT 12:57
PROVIDERS: PCP Nurse Practitioner Family; Referring Provider Internal Medicine Critical Care Medicine; Visit Provider Internal Medicine Critical Care Medicine
DX: R91.8 Other nonspecific abnormal finding of lung field (principal)
CPT/HCPCS: 71250

== ENCOUNTER → 2025-01-31 | Outpatient (CLI) | payer OTHER, SELFPAY ==
--- NOTE | 2025-01-31 13:17 | CT_ITS ---
PROCEDURE: CHEST WITHOUT CONTRAST 01/31/2025 REASON FOR EXAM: MULTIPLE NODULES, HISTORY OF SMOKING Pulmonary nodules. Bladder cancer. TECHNIQUE: Chest CT without contrast. Coronal and Sagittal reconstruction series were provided. One or more dose reduction techniques were used (e.g., Automated exposure control, adjustment of the mA and/or kV according to patient size, use of iterative reconstruction technique RADIATION DOSE SUMMARY: CTDlvol: 8.7 mGy DLP: 295 mGycm COMPARISON: July 2024. FINDINGS: Thyroid gland: Negative. Lungs: Numerous bilateral pulmonary nodules at least a does on each size. Relatively stable. Largest on the left on image 60 measures 7 mm on the right largest nodule also proximally 6 mm and unchanged.. Emphysematous changes. Early reticulations in the lungs also stable. Pleura: Negative for pleural effusion or pneumothorax. Airways: Imaged bronchi and trachea otherwisenegative. Mediastinum: Subcarinal and paratracheal lymph nodes unchanged. Lymph nodes: No axillary adenopathy. Heart and Vasculature: Heart normal size. Mild vascular calcifications of the thoracic aorta. Coronary Artery Calcifications: Severe vascular calcifications of the coronary arteries Upper Abdomen: Splenic granulomas. Hardware: None. Bones: Age-appropriate degenerative changes of the thoracic spine. CT/Chest without Contrast IMPRESSION: Stable bilateral pulmonary nodules concerning for metastatic disease Also stable concomitant granulomatous disease Stable interstitial and emphysematous changes. Negative for acute cardiopulmonary disease. Reading Location: [place] [address]
== END | disposition home or self-care (01) ==
LOC: CT 13:16
PROVIDERS: PCP Nurse Practitioner Family; Referring Provider Nurse Practitioner Family; Visit Provider Nurse Practitioner Family
DX: R91.8 Other nonspecific abnormal finding of lung field (principal)
CPT/HCPCS: 71250